=== PATIENT | female | born 1940 | race Caucasian/White ===

== ENCOUNTER 2019-03-23 11:34 | Inpatient (IN) ==
[2019-03-23] MEDS ORDERED: ROCEPHIN IM ONE (12:19)
[2019-03-23] MEDS ORDERED: ZOFRAN IV ONE (12:19)
[2019-03-23] MEDS ORDERED: XYLOCAINE-MPF 1% INJ ONE (12:19)
[2019-03-23] MEDS ORDERED: NS 1,000 ML IV ONE ×2 (12:19→14:02)
[2019-03-23 12:33] LABS: BILIRUBIN URINE NEGATIVE (NEGATIVE); BLOOD URINE NEGATIVE (NEGATIVE); CLARITY CLEAR (CLEAR); COLOR YELLOW; GLUCOSE URINE NEGATIVE (NEGATIVE); KETONE URINE TRACE mg/dL (NEGATIVE); LEUKOCYTES URINE TRACE (NEGATIVE); NITRITE URINE NEGATIVE (NEGATIVE); PROTEIN URINE NEGATIVE (NEGATIVE); UROBILINOGEN URINE NORMAL
[2019-03-23 12:42] LABS: URINE BACTERIA 4+ /HFP; URINE EPITHELIAL CELLS <10 /HPF (<10); URINE SOURCE CATH
[2019-03-23 12:46] LABS: BASO# 0.04 X1000 (0.0-0.2); BASO% 0.2 % (0.0-0.8); EOS# 0.01 X1000 (0.0-0.7); HEMATOCRIT 40.4 % (37.0-47.0); HEMOGLOBIN 14.2 g/dL (12.0-16.0); IMM GRAN# 0.11 X1000 (0.0-0.04); IMM GRAN% 0.5 % (0.0-0.5); LYMPH# 1.71 X1000 (1.2-3.4); LYMPH% 7.3 % (20.5-51.1); MCH 28.5 PG (27-31); MCHC 35.1 g/dL (33-37); MCV 81.1 FL (81-99); MONO# 1.45 X1000 (0.11-0.59); MONO% 6.2 % (1.7-9.3); MPV 10.7 FL (7.4-10.4); NEUT# 20.03 X1000 (1.4-6.5); NEUT% 85.8 % (42.2-75.2); PLT 418 X1000 (130-400); RBC 4.98 XMIL (4.2-5.4); RDW 12.1 % (11.5-14.5); WBC 23.35 X1000 (4.8-10.8)
[2019-03-23 13:01] LABS: INFLUENZA A NEGATIVE (NEGATIVE); INFLUENZA B NEGATIVE (NEGATIVE)
[2019-03-23 13:05] LABS: ALBUMIN 4.6 g/dL (3.5-5.0); CALCIUM 9.5 mg/dL (8.8-10.2); POTASSIUM 3.9 mmol/L (3.5-5.1); TOTAL BILIRUBIN 0.9 mg/dL (0.20-1.00)
[2019-03-23 13:14] LABS: INR 1.02; PROTIME 13.9 Seconds (11.0-16.0)
[2019-03-23 13:15] LABS: PTT 28.3 Seconds (22.3-41.8)
--- NOTE | 2019-03-23 13:18 | Diag Imaging Result Doc PS360 ---
EXAM: CHEST-PORTABLE - 03/23/2019 HISTORY: COUGH,SPUTUM TECHNIQUE: Portable chest COMPARISON: 04/17/2017 FINDINGS: Heart size is normal. There is mild prominence of interstitial markings. There is no dense consolidation, pleural effusion, or pneumothorax identified. IMPRESSION: Mild prominence of interstitial markings. No discrete focal pneumonia. Electronically signed by Vitaly Emerson 03/23/2019 1:15 PM
[2019-03-23] MEDS ORDERED: ROCEPHIN 1 GM in NS 50 ML IV ONE (13:23)
--- NOTE | 2019-03-23 13:50 | EKG Report ---
Test Performed on : 03/23/2019 1:41:46 PM Test Reason : SOB,COUGH Blood Pressure : / mmHG Vent. Rate : 074 BPM Atrial Rate : 074 BPM P-R Int : 152 ms QRS Dur : 086 ms QT Int : 444 ms P-R-T Axes : 042 050 065 degrees QTc Int : 492 ms Normal sinus rhythm. Nonspecific T wave abnormality Abnormal ECG When compared with ECG of 17-APR-2017 17:29, Nonspecific T wave abnormality now evident in Inferior leads Nonspecific T wave abnormality now evident in Lateral leads QT has lengthened Unconfirmed Result
--- NOTE | 2019-03-23 15:00 | PROVIDER DOCUMENTATION ---
This chart was entered by Brenda Sykes Scribe, acting as scribe for Dontae Arellano MD. HPI-Syncope/Dizziness - General Chief Complaint: Syncope Stated Complaint: DR SANTIAGO REF-DEHYDRATED? Time Seen by Provider: 03/23/19 12:08 Source: patient, family () Allergies/Adverse Reactions: Patient Allergies Allergy/AdvReac Type Severity Reaction Status Date / Time No Known Allergies Allergy Verified 03/23/19 11:48 Home Medications: Home Medication List Medication Instructions Recorded Confirmed Last Taken Type Nadolol 80 mg PO QHS 04/17/17 04/17/17 04/16/17 History - History of Present Illness-Syncope/Dizzy Nature of Presenting Problem: 78 yowf presents to the ed with her at bedside. pt went to see dr santiago this am her pcp and was told to come to ed for dehydration and syncope. pt sts for 1 week she has been dizzy with DR[employer] WALL [employer], decreased appetite, productive cough(green sputum), ear pain and nausea. pt sts this morning he heard her fall in the kitchen and he went to check on her she had a syncopal episode and then c/o lumbar pain post syncope. pt sts she has had a URI for 1 week and that was started the dizziness and other sx of decreased appetite and fatigue Prior Episodes: reports: single episode today Onset/Duration: reports: this morning Timing: reports: improving, intermittent Position/Activity at time of episode: reports: standing Symptoms prior to episode: reports: lightheaded, nausea/vomiting. denies: racing heart, confusion Duration of preceding symptoms? (mins): 1 (1 week) Context: reports: lost consciousness. denies: seizure activity observed Loss of Consciousness: brief (seconds) Current Symptoms: reports: nausea, lightheaded (with copy center specialist), dizzy. denies: fever, chills, chest pain, short of breath, vomiting, blurred vision Recently Seen Here or By Another Healthcare Provider: Yes (dr santiago pcp this am) - Dizziness Severity in ED: reports: mild Dizziness Related Current/Associated Symptoms: reports: nausea/vomiting, dizzy, earache. denies: headache, blurred vision, sense of confusion Any recent trauma/injury?: reports: none Modifying Factors: worse with: changing position Patient usually:: reports: walks without assistance Review of Systems - Adult - REVIEW OF SYSTEMS - ADULT ROS:: ROS per family () Constitutional: reports: see HPI, fatique. denies: chills, fever Eyes: denies: blurred vision, double vision Ears, Nose, Mouth & Throat: reports: see HPI, ear pain, sinus problem, throat pain Cardiovascular: denies: chest pain, edema, palpitations Respiratory: reports: see HPI, cough Gastrointestinal: reports: see HPI, nausea. denies: diarrhea, vomiting Genitourinary: reports: see HPI, incontinence (chronic) Musculoskeletal: reports: see HPI, back pain (lumbar) Integumentary: reports: no symptoms reported Neurological: reports: see HPI, dizziness/vertigo, syncope. denies: headache/migraines, seizure, slurred speech, tremors Psychiatric: reports: no symptoms reported Endocrine: reports: no symptoms reported Hematologic/Lymphatic: reports: no symptoms reported Allergic/Immunologic: reports: no symptoms reported All Other Systems: Reviewed and Negative Past History - Adult - PAST MEDICAL HISTORY-ADULT Review of Records: reports: Old Records Reviewed, Nursing Assessment Review, Medications Reviewed, Social history reviewed & non-contributory. Major Childhood Illnesses: reports: denies history Cardiovascular: reports: HTN, hyperlipidemia Respiratory: reports: denies history Gastrointestinal: reports: denies history Obstetrical/Gynecological: reports: denies history Genitourinary: reports: denies history Musculoskeletal: reports: denies history Hand Dominance: Right Handed Neurological: reports: denies history Psychiatric: reports: denies history Endocrine/Immune: reports: denies history Other Conditions: reports: denies history - PRIOR SURGERIES/PROCEDURES Surgical/Procedure History: reports: colonoscopy, other (cyst removed from buttocks area) - IMMUNIZATION STATUS Childhood Immunizations: See Nurse Assessment Flu Vaccine: See Nurse Assessment - FAMILY HISTORY Family History: reviewed, not pertinent - SOCIAL HISTORY Smoking: denies Substance Use: denies Living Situation: family Physical Exam-General - PHYSICAL EXAM-ADULT Initial Vital Signs Reviewed: Yes - CONSTITUTIONAL General Appearance: appears well, alert, no apparent distress, thin - EYES Eyes: PERRL/EOMI, pale conjunctivae - HEAD, EARS, NOSE, MOUTH & THROAT HENMT: pharyngeal erythema, TM abnormal, other (no teeth on bottom/post nasal drainage). negative: moist mucous membranes (dry oral) - NECK Neck: full range of motion, normal inspection - RESPIRATORY Respiratory: chest non-tender, lungs clear, normal breath sounds - CARDIOVASCULAR Cardiovascular: normal peripheral pulses, regular rate, rhythm - CHEST (BREASTS) Chest/Breast: deferred - GASTROINTESTINAL (ABDOMEN) Abdominal Exam: normal bowel sounds, non tender, soft - GENITOURINARY Female Genitalia/Pelvic Exam: deferred Rectal Exam: deferred Hemoccult Exam: deferred - MUSCULOSKELETAL Back Exam: normal inspection, no CVA tenderness, no vertebral tenderness, other (c/o lumbar pain with movement but no painful with palpation on exam) Extremity: normal range of motion, non-tender, normal capillary refill, pelvis stable - SKIN Integumentary: normal color, normal turgor, warm/dry - NEUROLOGIC Neurologic: grossly normal, no motor/sensory deficits - PSYCHIATRIC Psych/Mental Status: normal mood/affect, normal thought content, normal thought process, oriented x 3 Progress - PLAN OF CARE/RESULTS Progress/Plan/Lab Results: Vital Signs - 8 hr 03/23/19 11:43 03/23/19 13:30 03/23/19 14:15 Temperature 98.0 F 98.8 F Pulse Rate 64 73 69 Respiratory Rate 16 18 16 Blood Pressure 114/64 141/54 139/66 O2 Sat by Pulse Oximetry 97 100 96 Laboratory Results - last 24 hr 03/23/19 03/23/19 03/23/19 12:15 12:15 12:30 WBC RBC Hgb Hct MCV MCH MCHC RDW Std Deviation Plt Count MPV Immature Gran % (Auto) Neut % (Auto) Lymph % (Auto) [place] % (Auto) Eos % (Auto) Baso % (Auto) Immature Gran # (Auto) Neut # (Auto) Lymph # (Auto) [place] # (Auto) Eos # (Auto) Baso # (Auto) PT INR PTT (Actin FS) Sodium Potassium Chloride Carbon Dioxide Anion Gap BUN Creatinine Estimated GFR/1.73 m2 BUN/Creatinine Ratio Glucose Calculated Osmolality Calcium Magnesium 3.4 H Total Bilirubin AST ALT Alkaline Phosphatase Troponin T Total Protein Albumin Globulin Albumin/Globulin Ratio Plasma Lactate Urine Source CATH Urine Color YELLOW Urine Clarity CLEAR Urine pH 5.0 Ur Specific [place] 1.020 Urine Protein NEGATIVE Urine Ketones TRACE Urine Blood NEGATIVE Urine Nitrite NEGATIVE Urine Bilirubin NEGATIVE Urine Urobilinogen NORMAL Urine Microscopic RBC Not Reportable Urine WBC TRACE A Urine Microscopic WBC 5-10 Ur Epithelial Cells <10 Urine Bacteria 4+ Urine Glucose NEGATIVE Acetone Level NEGATIVE Influenza A (Rapid) Influenza B (Rapid) 03/23/19 03/23/19 03/23/19 12:30 12:30 12:30 WBC 23.35 H RBC 4.98 Hgb 14.2 Hct 40.4 MCV 81.1 MCH 28.5 MCHC 35.1 RDW Std Deviation 12.1 Plt Count 418 H MPV 10.7 H Immature Gran % (Auto) 0.5 Neut % (Auto) 85.8 H Lymph % (Auto) 7.3 L [place] % (Auto) 6.2 Eos % (Auto) 0.0 Baso % (Auto) 0.2 Immature Gran # (Auto) 0.11 H Neut # (Auto) 20.03 H Lymph # (Auto) 1.71 [place] # (Auto) 1.45 H Eos # (Auto) 0.01 Baso # (Auto) 0.04 PT INR PTT (Actin FS) Sodium 125 L Potassium 3.9 Chloride 75 L Carbon Dioxide 29 Anion Gap 21 BUN 73 H Creatinine 2.0 H Estimated GFR/1.73 m2 24 BUN/Creatinine Ratio 37 Glucose 185 H Calculated Osmolality 278 Calcium 9.5 Magnesium Total Bilirubin 0.90 AST 21 ALT 13 Alkaline Phosphatase 138 H Troponin T Total Protein 8.0 Albumin 4.6 Globulin 3.0 Albumin/Globulin Ratio 1.0 Plasma Lactate 2.0 Urine Source Urine Color Urine Clarity Urine pH Ur Specific [place] Urine Protein Urine Ketones Urine Blood Urine Nitrite Urine Bilirubin Urine Urobilinogen Urine Microscopic RBC Urine WBC Urine Microscopic WBC Ur Epithelial Cells Urine Bacteria Urine Glucose Acetone Level Influenza A (Rapid) Influenza B (Rapid) 03/23/19 03/23/19 03/23/19 12:30 12:30 12:30 WBC RBC Hgb Hct MCV MCH MCHC RDW Std Deviation Plt Count MPV Immature Gran % (Auto) Neut % (Auto) Lymph % (Auto) [place] % (Auto) Eos % (Auto) Baso % (Auto) Immature Gran # (Auto) Neut # (Auto) Lymph # (Auto) [place] # (Auto) Eos # (Auto) Baso # (Auto) PT 13.9 INR 1.02 PTT (Actin FS) 28.3 Sodium Potassium Chloride Carbon Dioxide Anion Gap BUN Creatinine Estimated GFR/1.73 m2 BUN/Creatinine Ratio Glucose Calculated Osmolality Calcium Magnesium Total Bilirubin AST ALT Alkaline Phosphatase Troponin T < 0.010 Total Protein Albumin Globulin Albumin/Globulin Ratio Plasma Lactate Urine Source Urine Color Urine Clarity Urine pH Ur Specific [place] Urine Protein Urine Ketones Urine Blood Urine Nitrite Urine Bilirubin Urine Urobilinogen Urine Microscopic RBC Urine WBC Urine Microscopic WBC Ur Epithelial Cells Urine Bacteria Urine Glucose Acetone Level Influenza A (Rapid) NEGATIVE Influenza B (Rapid) NEGATIVE Orders Category Date Time Status Cardiac Monitoring DIRECTED Care 03/23/19 12:17 Completed Saline Loc NOW Care 03/23/19 11:54 Active Saline Loc NOW Care 03/23/19 12:17 Completed CHEST-PORTABLE [RAD] Stat Exams 03/23/19 12:19 Completed ACETONE SERUM [CHEM] Stat Lab 03/23/19 12:30 Completed BLOOD CULTURE [BLDCUL] Stat Lab 03/23/19 12:53 Results CBC WITH ELECTRONIC DIFF [HEME] Stat Lab 03/23/19 12:30 Completed COMPREHENSIVE METABOLIC PANEL [CHEM] Stat Lab 03/23/19 12:[address] Stat Lab 03/23/19 12:30 Completed LACTATE, PLASMA [CHEM] Stat Lab 03/23/19 12:30 Completed MAGNESIUM [CHEM] Stat Lab 03/23/19 12:15 Completed PROTIME WITH INR [COAG] Stat Lab 03/23/19 12:30 Completed PTT [COAG] Stat Lab 03/23/19 12:30 Completed TROPONIN T Stat Lab 03/23/19 12:[address] W/POSS RFLX CULT [URINALYSIS] Stat Lab 03/23/19 12:15 Completed URINE CULTURE [RM] Routine Lab 03/23/19 12:42 Received 0.9% Sodium Chloride Inj [Ns] 1,000 ml Med 03/23/19 14:02 Active IV 150 mls/hr 0.9% Sodium Chloride Inj [Ns] 1,000 ml Med 03/23/19 12:19 Discontinued IV 999 mls/hr CefTRIAXONE [Rocephin] Med 03/23/19 12:19 Discontinued 1 gm IM NOW ONE CefTRIAXONE [Rocephin] 1 gm Med 03/23/19 13:23 Discontinued 0.9% Sodium Chloride Inj [Ns] 50 ml IV NOW Lidocaine 1% Pf [Xylocaine-Mpf 1%] Med 03/23/19 12:19 Discontinued 5 ml INJ NOW ONE Ondansetron [Zofran] Med 03/23/19 12:19 Discontinued 4 mg IV NOW ONE Generalized Adult Illness >60 Stat Oth 03/23/19 11:53 Ordered EKG [EKG] Stat Ther 03/23/19 12:17 Draft Result Diagrams: 03/23/19 12:30 03/23/19 12:30 - REASSESSMENT Reassessment #1 Time Reassessed: 13:53 (pt is resting in bed) Status: improving (HR and BP normalized after 1 liter NS) - EKG 1 Time of EKG reading by physician:: 13:41 EKG Read and Signed by:: Dontae Arellano EKG Interpretation (*Must complete 3 of following elements*): Abnormal Rate: 74 Rhythm: nsr [place]: normal QRS: normal HI Interval: normal ST Wave: normal Comments: nonspecific T wave abnormlaity - XRAY 1 XRAY: Bilateral XRAY Study: Chest Impression: See EMR Report (EXAM: CHEST-PORTABLE - 03/23/2019 HISTORY: COUGH,SPUTUM TECHNIQUE: Portable chest COMPARISON: 04/17/2017 FINDINGS: Heart size is normal. There is mild prominence of interstitial markings. There is no dense consolidation, pleural effusion, or pneumothorax identified. IMPRESSION: Mild prominence of interstitial markings. No discrete focal pneumonia. Electronically signed by Vitaly Emerson 03/23/2019 1:15 PM 03/23/19 1315 Interpreting Physician: Vitaly Emerson MD Dictated Date/Time: 03/23/19 1314 cc: Dontae Arellano MD; Edis Santiago MD) - CONSULTS/PCP/HOSPITALIST Notification #1 *Consult/PCP/Hospitalist*: hospitalist dr ramirez Time Discussed: 14:46 Consult Disposition: Admit Departure - Departure Date of Disposition Decision: 03/23/19 Time of Disposition Decision: 14:57 DIAGNOSIS: Syncope and collapse, Dehydration, Leukocytosis, unspecified, Bronchitis, UTI (urinary tract infection), Hyponatremia Disposition: ADMITTED INPATIENT 09 Certified Medical Emergency: Emergent Condition: Fair Referrals and Follow-Ups: Edis Santiago MD [Primary Care Provider] - - Critical Care Note This patient required my direct & personal management of CC.: No Attestation - Physician/ JOEL Attestation Patient care was provided by Advanced Practice Provider:: No The physician spent face to face time with patient:: Yes Advanced Practice Provider documentation review:: Supervising physician onsite and consulted in the evaluation and care of this patient. The physician did have a face to face encounter with the patient. This chart was documented by the indicated scribe, (Brenda Sykes Scribe) and accurately reflects the services I performed and decisions made by me, Dontae Arellano MD, as attested by the provider's signature.
[2019-03-23] MEDS ORDERED: TYLENOL PO PRN (16:35)
[2019-03-23] MEDS ORDERED: ZOFRAN IV PRN (16:35)
--- NOTE | 2019-03-23 17:49 | HISTORY AND PHYSICAL ---
ADDENDUM REPORT I saw the patient [id number] and agree with the assessment and plan of nurse practitioner Sada Cartwright. This is a 78-year-old female who has leukocytosis and also has urinary tract infection with acute kidney injury. She also has hyponatremia with sodium levels of 125. We are going to admit her to the med-surg floor and initiate her on IV fluids along with giving her broad-spectrum antibiotics to address urinary tract infection. We will monitor her electrolytes and follow hospital course. cc: Medina Barrett MD
--- NOTE | 2019-03-23 18:39 | HISTORY AND PHYSICAL ---
PRIMARY CARE MEDICAL DOCTOR: Dr. Edis Vieira. CHIEF COMPLAINT: Dehydration. HISTORY OF PRESENT ILLNESS: Mrs. Chahal is a 78-year-old female who presents to the ER today after going to see her payroll administrator, Dr. Vieira. The patient states she had a syncopal episode at home today. The patient states she has not been able to a eat or drink anything for the past week. She states she has also been having some dizziness and severe dry mouth. The patient states that she has chronic diarrhea from some kind of rectal growth that is protruding from her rectum area. The patient states she has had this growth removed a couple of times at [facility]. However, it has grown back and she is unable to have a full bowel movement. All she has is diarrhea and she is incontinent with this diarrhea. The patient does have a past medical history of hypertension and chronic diarrhea. The patient denies any chest pain. Denies any nausea or vomiting. Does state she has had some dry heaves. Denies any blood in her emesis. Denies any dysuria, frequency, urgency, pain, or hematuria. Denies any blood in her stools. The patient states she has just been severely weak. Laboratory findings show a white blood cell count of 23.35, sodium of 125, chloride 75, BUN 73, creatinine 2.0, glucose of 185, magnesium of 3.4. Urinalysis shows 4+ bacteria, positive white blood cell count. Chest x-ray is negative. PAST MEDICAL HISTORY: Chronic diarrhea, nasal polyps, hypertension. PAST SURGICAL HISTORY: Removal of a growth from her rectal area at the colon x2 at [facility]. FAMILY HISTORY: Significant for congestive heart failure. SOCIAL HISTORY: The patient lives in [place] with her spouse. She denies any alcohol, smoking, or illicit drug abuse. ALLERGIES: No known drug allergies. MEDICATIONS: Home medication reconciliation has not been performed. The patient states she takes one medication for her blood pressure, nadolol. LABORATORIES AND DIAGNOSTICS: White blood cell count 23.35, hemoglobin 14.2, hematocrit 40.0, platelet count 418,000. PT is 13.9, INR is 1.02, PTT is 28.3. Sodium is 125, potassium is 3.9, chloride 75, carbon dioxide 29, anion gap 21, BUN is 73, creatinine is 2, estimated GFR is 24, glucose is 185, calcium is 9.5, magnesium is 3.4, total bilirubin is 0.9, AST is 21, ALT is 13, alkaline phosphatase is 138. Troponin is less than 0.01. Plasma lactate is 2. Acetone level is negative. Influenza swabs are negative. Chest x-ray shows mild prominence of the interstitial markings, but no pneumonia. REVIEW OF SYSTEMS: A 10-point review of systems has been obtained. All are negative except what is stated above in the HPI. PHYSICAL EXAMINATION: VITAL SIGNS: Temperature 98.8 degrees, pulse rate 73, respiratory rate 18, blood pressure is 139/66, and O2 saturation is 96% on room air. Weight is 110 pounds, height is 5 feet 5 inches. GENERAL: This is a 78-year-old female. She is lying in the ER stretcher. She is very thin and frail in appearance. She is in no acute distress at present time. HEENT: Atraumatic, normocephalic. Pupils equal, round, and reactive to light. Mucous membranes are dry. NECK: Supple. No lymphadenopathy. Trachea is midline. No JVD. CARDIOVASCULAR: Regular rate and rhythm. No murmurs, gallops, or rubs appreciated. RESPIRATORY: Lung sounds are clear. Equal chest excursion. Respirations are nonlabored with no accessory muscle usage. GASTROINTESTINAL: Abdomen is soft, nontender, and nondistended. Bowel sounds are present x4. NEUROLOGIC: Cranial nerves II through XII are intact. The patient is awake, alert, oriented, and able to follow all commands appropriately. MUSCULOSKELETAL: Full distal strength noted. No abnormalities. No deformities. EXTREMITIES: No clubbing, no cyanosis, no edema. DP and PT pulses are present and palpable. SKIN: Warm, dry, and intact. There is a large red growth hanging from the rectal anus area. It is about the size of a golf ball. There is another small one right below it that is about the size of a quarter. There is no diaphoresis or bruises noted. ASSESSMENT AND PLAN: 1. Dehydration. We are going to admit this patient to the medical floor. We will place her on IV fluid hydration and normal saline at 150 mL an hour. We are going to start her on a healthy heart diet. Repeat labs and chest x-ray in the morning. Place her on quality assurance monitor chassis. 2. Leukocytosis. Patient does have elevated WBC count and a UTI we have started her on IV fluid hydration and IV antibiotics. We will recheck her labs in the morning. Blood cultures and a urine culture was obtained in the ER. 3. Acute kidney injury. This is likely due to her dehydration. We will place her on IV fluid hydration. We will repeat labs in the morning. I am not sure what her normal BUN and creatinine are or her GFR. 4. Malnutrition. The patient is severely malnourished and dehydrated. We are going to encourage her to drink fluids and encourage her to eat. 5. Diarrhea. The patient has been having this diarrhea for some time. This is due to some kind of rectal growth. This has been removed a few times at [facility]. We are going to have Surgery take a look at this and see if this growth can be removed. The patient states she is unable to have a full bowel movement. She just has constant diarrhea, and is incontinent with her diarrhea. 5. Hypertension. The patient is on some kind of home hypertension medicine. Her home medication reconciliation has not been performed at this time. Her blood pressure is stable at this time. We will continue to observe her blood pressure and place her on quality assurance monitor chassis. 6. Deep venous thrombosis prophylaxis. I placed her on SCDs. 7. Gastrointestinal prophylaxis. I placed her on Prilosec daily. We will admit this patient to a medical floor. We will place her on IV fluid hydration. She does have some notable bacteria in her urine, so we are going to put her on some Rocephin IV daily. We are going to await the blood cultures pending and urine culture. She also has some acute renal insufficiency going on, so we are going to repeat her labs in the morning after we have hydrated her, and we are going to encourage her to eat and drink as the patient is malnourished and dehydrated. We will consult Surgery for this rectal growth to see if it can be removed as it is causing her some discomfort. All other further treatment and recommendations pending hospital course and lab data. Dictated by CARA Thomas for Medina Barrett MD cc: MD Edis Headley MD [facility]
[2019-03-23 20:05] LABS: ALBUMIN 3.6 g/dL (3.5-5.0); CALCIUM 8.2 mg/dL (8.8-10.2); CREATININE 1.6 mg/dL (0.5-0.9); MAGNESIUM 2.9 mg/dL (1.5-2.7); POTASSIUM 3.6 mmol/L (3.5-5.1); TOTAL BILIRUBIN 0.5 mg/dL (0.20-1.00); TOTAL PROTEIN 6.9 g/dL (6.3-8.3)
[2019-03-23] MEDS: ROCEPHIN 1 GM in NS 50 ML IV SCH (20:39)
[2019-03-23] MEDS: NS 1,000 ML IV SCH (20:46)
[2019-03-24] MEDS: NS 1,000 ML IV SCH ×3 (03:27→20:16)
[2019-03-24 06:54] LABS: BASO# 0.03 X1000 (0.0-0.2); BASO% 0.2 % (0.0-0.8); EOS# 0.08 X1000 (0.0-0.7); EOS% 0.6 % (0.0-10.0); HEMATOCRIT 33.3 % (37.0-47.0); HEMOGLOBIN 10.8 g/dL (12.0-16.0); IMM GRAN# 0.03 X1000 (0.0-0.04); IMM GRAN% 0.2 % (0.0-0.5); LYMPH# 1.33 X1000 (1.2-3.4); LYMPH% 10.5 % (20.5-51.1); MCH 27.4 PG (27-31); MCHC 32.4 g/dL (33-37); MCV 84.5 FL (81-99); MONO# 1.28 X1000 (0.11-0.59); MONO% 10.1 % (1.7-9.3); NEUT# 9.92 X1000 (1.4-6.5); NEUT% 78.4 % (42.2-75.2); PLT 293 X1000 (130-400); RBC 3.94 XMIL (4.2-5.4); RDW 12.1 % (11.5-14.5); WBC 12.67 X1000 (4.8-10.8)
--- NOTE | 2019-03-24 07:44 | Diag Imaging Result Doc PS360 ---
EXAM: CHEST-PORTABLE INDICATION: cough TECHNIQUE: One view COMPARISON: 03/23/2019 FINDINGS: Mild increased interstitial markings bilaterally are approximately stable given slight differences in exposure. This probably represents chronic interstitial thickening. No new consolidation is identified. Cardiac silhouette is stable. IMPRESSION: Stable chest. Electronically signed by Ross Canales 03/24/2019 7:41 AM
[2019-03-24] MEDS: PRILOSEC PO SCH (09:05)
--- NOTE | 2019-03-24 11:36 | PROGRESS NOTE ---
DATE: 03/24/2019 SUBJECTIVE: Patient denies having any acute complaints this morning and feels better. OBJECTIVE: Vital Signs: Temperature 98 degrees, pulse 69 per minute, respiratory rate 18 per minute, blood pressure 121/46, pulse oximetry 96% on room air. General: Patient is alert and oriented x3. She does not appear to be in any acute distress. Cardiovascular System: First and second heart sounds are audible without murmurs or gallops. Respiratory System: Bilateral lung air entry is good without any rales or rhonchi. Gastrointestinal System: Abdomen is benign. DIAGNOSTIC DATA: CBC shows WBC count of 12.67, hemoglobin 10.8, hematocrit 33.3, and platelet count 2930. In comparison her WBC count was 23.35 yesterday and H and H were 14.2 and 40.4 yesterday. I believe this is hemodilution causing her to have some drop in hemoglobin and hematocrit, and leukocytosis has also somewhat improved because of hemodilution, along with infection, treatment with antibiotics. Chemistry showed sodium level of 132; that is an improvement as compared to yesterday when her sodium level was 125. BUN and creatinine are 61 and 1.6 respectively, which are better as compared to BUN of 73 and creatinine 2.0 yesterday. Rest of the comprehensive metabolic panel is nondiagnostic. Magnesium levels were elevated at 3.4 yesterday and they are now 2.9 today. IMPRESSION: 1. Urinary tract infection. 2. Acute kidney injury. 3. Leukocytosis. 4. Hyponatremia that has improved. PLAN: The patient will continue to receive IV fluids along with ceftriaxone intravenously. We will provide her supportive care and monitor her electrolytes. Further recommendations will be given as per hospital course. cc: Medina Barrett MD
--- NOTE | 2019-03-24 14:04 | GENERAL SURGERY CONSULTATION ---
DATE: 03/24/2019 REQUESTING PHYSICIAN: Dr. Barrett. REASON FOR CONSULTATION: Anal mass. HISTORY OF PRESENT ILLNESS: A 78-year-old female with a history of anal mass that has been removed several times at [facility], presenting now with dehydration. She was initially admitted by Dr. Barrett and has been resuscitated, but is found that she has had issues with this rectal mass coming back. She does not recall what the previous resections have shown, but she did not think it was cancer. I have been asked to weigh an opinion. She says she is feeling a little bit better. PAST MEDICAL HISTORY: Chronic diarrhea, nasal polyps, hypertension. PAST SURGICAL HISTORY: Includes previous removal of tumor from her rectum x2 at [facility]. FAMILY HISTORY: Positive for congestive heart failure. SOCIAL HISTORY: Lives in [place]. Denies alcohol, tobacco, or illicit drugs. ALLERGIES: None. HOME MEDICATIONS: Reviewed. REVIEW OF SYSTEMS: A full 14 systems reviewed, are negative except for those specified in the HPI. PHYSICAL EXAMINATION: Vital Signs: Patient is currently afebrile. Her vital signs are stable. General: No acute distress. HEENT: Normocephalic, atraumatic. Pupils equal, round, reactive to light. Mucous membranes moist. Oropharynx benign. Neck: Supple. Trachea midline. Cardiovascular: Regular rate and rhythm. Lungs: Grossly clear. Abdomen: Soft, nontender, nondistended. Rectal: There is a mass noted, looks almost like a condyloma. Extremities: Moves all extremities. Neurologic: Grossly intact. Skin: No signs of jaundice. Vascular: All extremities perfused. LABORATORY: Reviewed. ASSESSMENT AND PLAN: A 78-year-old female with rectal mass. Rectal mass. 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 Given the history of it coming back several times, that could potentially be the causative reason. She probably needs a rectal exam under anesthesia and a transanal excision. We could do this as an outpatient. We will keep her in the hospital while she is being resuscitated for dehydration and plan on intervention in the near future. cc: Hardeep Adams MD
[2019-03-24] MEDS: ROCEPHIN 1 GM in NS 50 ML IV SCH (20:07)
[2019-03-25 06:50] LABS: BASO# 0.03 X1000 (0.0-0.2); BASO% 0.3 % (0.0-0.8); EOS# 0.31 X1000 (0.0-0.7); EOS% 3.1 % (0.0-10.0); HEMOGLOBIN 10.2 g/dL (12.0-16.0); IMM GRAN# 0.03 X1000 (0.0-0.04); IMM GRAN% 0.3 % (0.0-0.5); LYMPH# 2.28 X1000 (1.2-3.4); LYMPH% 22.5 % (20.5-51.1); MCH 27.5 PG (27-31); MCHC 31.9 g/dL (33-37); MCV 86.3 FL (81-99); MONO# 1.25 X1000 (0.11-0.59); MONO% 12.4 % (1.7-9.3); MPV 10.6 FL (7.4-10.4); NEUT# 6.22 X1000 (1.4-6.5); NEUT% 61.4 % (42.2-75.2); PLT 283 X1000 (130-400); RBC 3.71 XMIL (4.2-5.4); RDW 12.3 % (11.5-14.5); WBC 10.12 X1000 (4.8-10.8)
--- NOTE | 2019-03-25 07:16 | GENERAL SURGERY PROGRESS NOTE ---
DATE: 03/25/2019 SUBJECTIVE: Patient seems to be doing okay. She does have a persistent cough, but otherwise she has been doing okay. OBJECTIVE: Vital Signs: Patient is currently afebrile. Her vital signs stable. General: No acute distress. HEENT: Normocephalic, atraumatic. Pupils equal, round, reactive to light. Mucous membranes moist. Oropharynx benign. Neck: Supple. Trachea midline. Cardiovascular: Regular rate and rhythm. Lungs: Grossly clear. Abdomen: Soft, nontender, nondistended. Rectal: Deferred at this time. Extremities: Moves all extremities. Neurologic: Grossly intact. Skin: No signs of jaundice. Vascular: All extremities perfused. LABORATORY: None this morning as of yet. ASSESSMENT AND PLAN: A 78-year-old female with rectal mass. Rectal mass. At this time, we will probably need an examination under anesthesia in the near future with a transanal excision, but we will see how she does and how her resuscitation continues, so no immediate plans today or tomorrow. cc: Hardeep Adams MD
[2019-03-25 07:18] LABS: CALCIUM 8.4 mg/dL (8.8-10.2); CREATININE 0.9 mg/dL (0.5-0.9); MAGNESIUM 2.3 mg/dL (1.5-2.7); POTASSIUM 3.4 mmol/L (3.5-5.1)
[2019-03-25] MEDS: PRILOSEC PO SCH (08:50)
[2019-03-25] MEDS: NS 1,000 ML IV SCH (08:51)
[2019-03-25 15:53] VITALS: BP 130/55
--- NOTE | 2019-03-25 18:19 | DISCHARGE SUMMARY ---
ADMISSION DATE: 03/23/2019 DISCHARGE DATE: 03/25/2019 ADMISSION DIAGNOSES: 1. Dehydration. 2. Leukocytosis. 3. Acute kidney injury. 4. Malnutrition. 5. Diarrhea. 6. Hypertension. DISCHARGE DIAGNOSES: 1. Urinary tract infection. It was pansensitive Escherichia coli, negative extended spectrum beta-lactamase. 2. Acute kidney injury. 3. Leukocytosis. 4. Hyponatremia, which improved. 5. Anal mass. CONSULTATIONS: Dr. Adams with General surgery. She was found to have an anal mass, and he evaluated the patient. 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 He thinks she probably needs a rectal exam under anesthesia and a transanal excision and could be done as an outpatient with plans for intervention in the near future. Ms. Ericka Chahal is a 78-year-old female. Presented to the emergency department at [facility] for dehydration. She admitted to having a syncopal episode at home, had not been able to eat or drink anything for the past week, had dizziness and dry mouth and chronic diarrhea, and also a rectal growth apparently had been protruding from her rectum. Apparently she has had the rectal growth removed several times at [facility], but it just keeps coming back. She has been unable to have a full bowel movement but has been having incontinent diarrhea. Denies nausea or vomiting. No blood in the stool. She had a white count of 23,000, a low sodium level of 125, mild acute kidney injury. Urinalysis had 4+ bacteria and some white blood cells. She was given IV fluid hydration, started on IV antibiotics for the UTI. Diet was started, and patient was encouraged to consume food. General Surgery was consulted and felt like the anal mass was more of a condyloma and could be removed as an outpatient under anesthesia. Vital signs stable, She will be discharged home today. DISCHARGE VITAL SIGNS: Temperature 99.2 degrees, heart rate 71, respiratory rate 14, blood pressure 130/55. O2 saturation 99% on room air. LAB DATA: White blood cells 10,000, hemoglobin 10, hematocrit 32, platelet count 283. Sodium 139, potassium 3.4, BUN 24, creatinine 0.9. Glucose 94, calcium 8.4, magnesium 2.3. MICRO: She had an E coli urinary tract infection. It was pansensitive. Negative ESBL. IMAGING: Chest x-ray on the : Mild prominence of interstitial markings. No discrete focal pneumonia. Chest x-ray on the : Stable chest. EKG on the : Normal sinus rhythm, rate 74, QTc 492. DISCHARGE MEDICATIONS: 1. Nadolol 80 mg p.o. daily. 2. Zofran 4 mg p.r.n. 3. Levaquin 750 mg p.o. daily for 7 days. DISCHARGE DISPOSITION: Home. DIET: Heart healthy. ACTIVITY: As tolerated. PHYSICIAN FOLLOWUP: Drs. Edis Vieira and Hardeep Adams. 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 DISCHARGE INSTRUCTIONS: If your condition changes, contact your physician and/or return to the emergency department. Changes include, but are not limited to, shortness of breath, increased fatigue, excessive bleeding, unexplained weight loss or gain, unmanageable pain, signs or symptoms of infection. DISCHARGE DISPOSITION: Home. Dictated by CARA De La Rosa for Cheko Lam MD Addendum: Patient seen and examined by myself. Agree with CARA note. It reflects my assessment and plan. Patient is being discharged in stable condition. Will be seen by Dr. Adams in a week. cc: CARA De La Rosa MD MTDEdwin
== END 2019-03-25 17:50 | disposition home or self-care (01) | DRG 683 ==
LOC: P.ED 11:34 → SUATTDRO 17:43 → P.MEDSURG 17:43
PROVIDERS: ATTEND Internal Medicine

== ENCOUNTER 2019-04-05 03:35 | Inpatient (IN) ==
[2019-04-05] MEDS ORDERED: ZOFRAN IV ONE (06:00)
[2019-04-05] MEDS ORDERED: NS 1,000 ML IV ONE ×2 (06:01→07:34)
[2019-04-05 06:18] LABS: BASO# 0.07 X1000 (0.0-0.2); BASO% 0.4 % (0.0-0.8); EOS% 1.1 % (0.0-10.0); HEMATOCRIT 41.1 % (37.0-47.0); HEMOGLOBIN 14.4 g/dL (12.0-16.0); IMM GRAN# 0.07 X1000 (0.0-0.04); IMM GRAN% 0.4 % (0.0-0.5); LYMPH# 2.08 X1000 (1.2-3.4); LYMPH% 11.6 % (20.5-51.1); MCH 28.2 PG (27-31); MCV 80.6 FL (81-99); MONO# 1.13 X1000 (0.11-0.59); MONO% 6.3 % (1.7-9.3); NEUT# 14.39 X1000 (1.4-6.5); NEUT% 80.2 % (42.2-75.2); PLT 527 X1000 (130-400); RDW 12.6 % (11.5-14.5); WBC 17.94 X1000 (4.8-10.8)
[2019-04-05 06:48] LABS: ALBUMIN 4.7 g/dL (3.5-5.0); CALCIUM 9.1 mg/dL (8.8-10.2); CREATININE 2.3 mg/dL (0.5-0.9); POTASSIUM 4.1 mmol/L (3.5-5.1); TOTAL BILIRUBIN 0.7 mg/dL (0.20-1.00); TOTAL PROTEIN 7.9 g/dL (6.3-8.3)
[2019-04-05] MEDS ORDERED: ROCEPHIN 1 GM in NS 50 ML IV ONE (07:34)
--- NOTE | 2019-04-05 07:40 | PROVIDER DOCUMENTATION ---
HPI-Syncope/Dizziness - General Chief Complaint: Syncope Stated Complaint: SYNCOPE Time Seen by Provider: 04/05/19 07:27 Allergies/Adverse Reactions: Patient Allergies Allergy/AdvReac Type Severity Reaction Status Date / Time levofloxacin [From Levaquin] Allergy NAUSEA/VOMI Verified 04/05/19 07:51 TING Home Medications: Home Medication List Medication Instructions Recorded Confirmed Last Taken Type Nadolol 80 mg PO DAILY 03/23/19 04/05/19 03/23/19 History - History of Present Illness-Syncope/Dizzy Nature of Presenting Problem: patient stated that she was sitting in the commode and passed out for unknown period of time. unknown loss of consciousness. patient had history of syncope in the past, she stated that she was dehydrated and had history of uti, no fever was reported. patient complained dry mouth and difficulty swallowing. Prior Episodes: reports: single episode today Onset/Duration: reports: abrupt Timing: reports: improving Position/Activity at time of episode: reports: sitting Symptoms prior to episode: reports: none. denies: headache, visual disturbance, nausea/vomiting, racing heart, confusion, rapid heart beat Context: reports: lost consciousness, collapsed, felt faint Current Symptoms: denies: fever, chills, abdominal pain, nausea, headache Similar symptoms previously: reports: workup for same problem Recently Seen Here or By Another Healthcare Provider: No - Dizziness Severity in ED: reports: moderate Dizziness Related Current/Associated Symptoms: reports: weakness, dizzy, syncope . denies: nausea/vomiting, headache, headache Any recent trauma/injury?: reports: none Modifying Factors: improves with: changing position, movement of head, standing position Review of Systems - Adult - REVIEW OF SYSTEMS - ADULT Constitutional: reports: jayla. denies: fever Eyes: reports: no symptoms reported Ears, Nose, Mouth & Throat: reports: no symptoms reported Cardiovascular: reports: no symptoms reported Respiratory: reports: no symptoms reported Gastrointestinal: reports: no symptoms reported, other (difficulty swallowing) Genitourinary: reports: no symptoms reported Musculoskeletal: reports: no symptoms reported Integumentary: reports: no symptoms reported Neurological: reports: dizziness/vertigo, syncope Psychiatric: reports: no symptoms reported Endocrine: reports: no symptoms reported Hematologic/Lymphatic: reports: no symptoms reported Allergic/Immunologic: reports: no symptoms reported Past History - Adult - PAST MEDICAL HISTORY-ADULT Review of Records: reports: Nursing Assessment Review Major Childhood Illnesses: reports: denies history Cardiovascular: reports: HTN, hyperlipidemia Respiratory: reports: denies history Gastrointestinal: reports: denies history Obstetrical/Gynecological: reports: denies history Genitourinary: reports: denies history Musculoskeletal: reports: denies history Neurological: reports: denies history Endocrine/Immune: reports: denies history Other Conditions: reports: denies history Physical Exam-General - PHYSICAL EXAM-ADULT Initial Vital Signs Reviewed: Yes - CONSTITUTIONAL General Appearance: alert, no apparent distress - EYES Eyes: PERRL/EOMI - HEAD, EARS, NOSE, MOUTH & THROAT HENMT: normocephalic/atraumatic, normal ENT inspection - NECK Neck: non-tender, supple - RESPIRATORY Respiratory: lungs clear, normal breath sounds, no pleuratic chest pain, no respiratory distress, no accessory muscle use - CARDIOVASCULAR Cardiovascular: normal peripheral pulses, regular rate, rhythm, no edema, no gallop - GASTROINTESTINAL (ABDOMEN) Abdominal Exam: non tender, soft - LYMPHATIC Lymphatic: no adenopathy - MUSCULOSKELETAL Back Exam: normal inspection, no CVA tenderness, no vertebral tenderness Extremity: negative: calf tenderness, pedal edema - SKIN Integumentary: other (both feet were cold) - NEUROLOGIC 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, grossly normal, other (generalized weakness) - PSYCHIATRIC Psych/Mental Status: normal mood/affect, oriented x 3 Progress - PLAN OF CARE/RESULTS Progress/Plan/Lab Results: Laboratory Results - last 24 hr 04/05/19 04/05/19 07:10 09:45 POC Glucose 116 H Urine Source CATH Urine Color YELLOW Urine Clarity CLEAR Urine pH 5.0 Ur Specific [place] 1.020 Urine Protein TRACE A Urine Ketones TRACE Urine Blood NEGATIVE Urine Nitrite NEGATIVE Urine Bilirubin NEGATIVE Urine Urobilinogen NORMAL Urine WBC TRACE A Urine Microscopic WBC <10 Ur Epithelial Cells <10 Urine Glucose NEGATIVE Orders Category Date Time Status Admit - [facility] Routine AdmDCTranf 04/05/19 10:17 Active Activity - Up with Assistance ORDERED Care 04/05/19 10:17 Active ED: Orthostatic Vital Signs (E DIRECTED Care 04/05/19 08:34 Completed Intake and Output-Strict ORDERED Care 04/05/19 10:17 Active Saline Loc NOW Care 04/05/19 05:26 Active Vital Signs Order Q 8-HR ASSESS Care 04/05/19 10:17 Active Z-Document. for Tele Applied ORDERED Care 04/05/19 10:17 Completed US RENAL 2 (RETROPER) COMPLETE [US] Routine Exams 04/05/19 10:17 Completed BASIC METABOLIC PANEL [CHEM] Routine Lab 04/06/19 05:39 Completed BLOOD CULTURE [BLDCUL] Stat Lab 04/05/19 06:41 Results CBC WITH DIFF [HEME] Routine Lab 04/06/19 05:39 Completed CBC WITH DIFF [HEME] Stat Lab 04/05/19 05:59 Completed CK PROFILE [SP CHEM] Stat Lab 04/05/19 05:59 Completed COMPREHENSIVE METABOLIC PANEL [CHEM] Stat Lab 04/05/19 05:59 Completed LACTATE, PLASMA [CHEM] Stat Lab 04/05/19 06:43 Completed TROPONIN T Stat Lab 04/05/19 05:59 Completed UR CREAT RANDOM [URCHEM] Routine Lab 04/05/19 21:40 Completed UR PROT RANDOM [URCHEM] Routine Lab 04/05/19 21:40 Completed UR SODIUM [URCHEM] Routine Lab 04/05/19 21:[address] W/POSS RFLX CULT [URINALYSIS] Stat Lab 04/05/19 07:10 Completed 0.9% Sodium Chloride Inj [Ns] 1,000 ml Med 04/05/19 10:17 Active IV 125 mls/hr 0.9% Sodium Chloride Inj [Ns] 1,000 ml Med 04/05/19 06:01 Discontinued IV 999 mls/hr 0.9% Sodium Chloride Inj [Ns] 1,000 ml Med 04/05/19 07:34 Discontinued IV 999 mls/hr Acetaminophen [Tylenol] Med 04/05/19 10:17 Active 650 mg PO Q6H PRN PRN CefTRIAXONE [Rocephin] 1 gm Med 04/05/19 07:34 Discontinued 0.9% Sodium Chloride Inj [Ns] 50 ml IV NOW Ondansetron [Zofran] Med 04/05/19 06:00 Discontinued 4 mg IV NOW ONE Ondansetron [Zofran] Med 04/05/19 10:17 Active 4 mg IV Q4H PRN PRN Telemetry [OM.EQ] Routine Oth 04/05/19 10:17 Active EKG [EKG] Stat Ther 04/05/19 05:25 Draft Transfer/Admit Order [TRANSFER] Routine Transfer 04/05/19 09:34 Completed Result Diagrams: 04/06/19 05:39 04/06/19 05:39 Departure - Departure Date of Disposition Decision: 04/05/19 Time of Disposition Decision: 16:00 DIAGNOSIS: Electrolyte abnormality, Dehydration, Syncope Disposition: ADMITTED INPATIENT 09 Certified Medical Emergency: Emergent Condition: Good - Critical Care Note This patient required my direct & personal management of CC.: No Attestation - Physician/ JOEL Attestation Patient care was provided by Advanced Practice Provider:: No The physician spent face to face time with patient:: Yes Advanced Practice Provider documentation review:: Supervising physician onsite and consulted in the evaluation and care of this patient. The physician did have a face to face encounter with the patient.
[2019-04-05 08:09] LABS: BILIRUBIN URINE NEGATIVE (NEGATIVE); BLOOD URINE NEGATIVE (NEGATIVE); CLARITY CLEAR (CLEAR); COLOR YELLOW; GLUCOSE URINE NEGATIVE (NEGATIVE); KETONE URINE TRACE mg/dL (NEGATIVE); LEUKOCYTES URINE TRACE (NEGATIVE); NITRITE URINE NEGATIVE (NEGATIVE); PROTEIN URINE TRACE mg/dL (NEGATIVE); UROBILINOGEN URINE NORMAL
[2019-04-05 08:10] LABS: URINE EPITHELIAL CELLS <10 /HPF (<10); URINE SOURCE CATH; URINE WBC <10 /HPF (<10)
--- NOTE | 2019-04-05 08:57 | EKG Report ---
Test Performed on : 04/05/2019 06:29:00 AM Test Reason : syncope Blood Pressure : / mmHG Vent. Rate : 070 BPM Atrial Rate : 070 BPM P-R Int : 172 ms QRS Dur : 078 ms QT Int : 446 ms P-R-T Axes : 067 029 052 degrees QTc Int : 481 ms Normal sinus rhythm. Nonspecific T wave abnormality Abnormal ECG When compared with ECG of 23-MAR-2019 13:41, (Unconfirmed) No significant change was found Unconfirmed Result
[2019-04-05] MEDS ORDERED: TYLENOL PO PRN (10:17)
[2019-04-05] MEDS ORDERED: ZOFRAN IV PRN (10:17)
[2019-04-05] MEDS: NS 1,000 ML IV SCH ×2 (10:25→18:23)
--- NOTE | 2019-04-05 12:14 | Diag Imaging Result Doc PS360 ---
US RENAL 2 (RETROPER) COMPLETE - 04/05/2019 INDICATION: gema/arf TECHNIQUE: COMPARISON: None FINDINGS: There is mild to moderate right-sided hydronephrosis. There is dilation of the proximal ureter. The left kidney is normal. No renal mass. There is incidental note of shadowing gallstones in the gallbladder. No gallbladder inflammation. There is also some fatty change of the liver. The urinary bladder appears normal. No free fluid. The right kidney measures 8.6 x 4.4 x 4.5 cm. The left kidney measures 9.8 x 4.5 x 4.5 cm. IMPRESSION: 1. Moderate right hydronephrosis of uncertain etiology. 2. Stones in the gallbladder. 3. Fatty liver. Electronically signed by Aidan Yuen 04/05/2019 12:11 PM
[2019-04-05] MEDS ORDERED: PROTONIX IV SCH (17:30)
[2019-04-05] MEDS ORDERED: SODIUM CHLORIDE 0.9% INJ SCH ×2 (17:30)
[2019-04-05] MEDS ORDERED: NEXIUM IV SCH (17:30)
--- NOTE | 2019-04-05 20:21 | HISTORY AND PHYSICAL ---
CHIEF COMPLAINT: Weakness. HISTORY OF PRESENT ILLNESS: The patient came in for dehydration. According to the family, she has not really been active. She only drinks about 2 cups of water a day. Today, she was on a commode and she passed out. She states she is dehydrated. History of UTI. No fevers. She went to the bathroom at her home, and without bearing down, she had a syncopal episode. Her found her unresponsive, but she regained consciousness quickly. Further questioning revealed that she had recently had dysphagia to solids, but not liquids. Again, she drinks minimal amounts of liquid. She was just admitted about 2 weeks ago also for acute kidney injury and dehydration. She was thought to have a UTI at that time. She has a history of a rectal mass, but it has been benign and just followed normally. We will continue to follow closely. Her labs today showed a BUN and creatinine of 76 and 2.3, sodium of 124, white count of 17,000. She has had a 30-pound weight loss in the last several months because she just does not eat or drink, but she is complaining of dysphagia. PAST MEDICAL HISTORY: Hypertension alone. PAST SURGICAL HISTORY: Nasal polyps. FAMILY HISTORY: CHF. SOCIAL HISTORY: No tobacco or ethanol. ALLERGIES: No known drug allergies. MEDICATIONS: Denies. REVIEW OF SYSTEMS: Otherwise negative x10 point review of systems. PHYSICAL EXAMINATION: VITAL SIGNS: Blood pressure 120/47, heart rate 63, respiratory rate 20, temperature 98 degrees, 94% on room air. GENERAL: This is a darkly skinned lady, kind of tanned, in no acute distress. HEAD: Normocephalic, atraumatic. EYES: Pupils equal, round, reactive to light. Extraocular movements are intact. EAR/NOSE/THROAT: She had moist mucous membranes. NECK: Supple. CARDIOVASCULAR: Regular rate and rhythm. PULMONARY: Bilateral breath sounds. Clear to auscultation GASTROINTESTINAL: Soft, nontender, nondistended. Bowel sounds are positive. NEUROLOGIC: Nonfocal. MUSCULOSKELETAL: Strength 4/5 in all 4 extremities. LABORATORY DATA: White count 17, hemoglobin and hematocrit 14 and 41, platelets 527,000. Sodium 124, BUN and creatinine 76 and 2.3. Overall doing okay. PROBLEM LIST: 1. Acute kidney injury, likely due to dehydration from poor oral intake. She is really not on anything nephrotoxic. We will do an acute kidney injury workup including urine electrolytes, a renal ultrasound, continue gentle hydration, and follow. 2. Hypertension. For the time being, blood pressure is stable. I am not resuming any of her medications. 3. Leukocytosis. May be reactive from her other things going on, but we will get a chest x-ray and monitor. 4. Dysphagia. We will likely need GI evaluation when she is more stable. We will get a barium swallow to start off with, and we will start PPI and monitor. DISPOSITION: Pending her clinical status. cc: MD Edis Hoover MD
--- NOTE | 2019-04-05 20:58 | Diag Imaging Result Doc PS360 ---
CT RENAL STONE SEARCH - 04/05/2019 INDICATION: gema COMPARISON: Renal ultrasound from earlier 04/05/2019 FINDINGS: The lung bases are clear and the heart size is normal. There is mild bilateral hydronephrosis. Urinary bladder is massively distended. No radiodense renal stones. There is moderate diffuse constipation. No bowel obstruction. Normal appendix. There appears to be some wall thickening of the distal rectum. Uterus is absent. There are moderate degenerative changes of the spine. No acute or suspicious bony lesion. IMPRESSION: 1. Severe urinary bladder distention causing bilateral hydronephrosis. Anders catheter recommended. 2. Suspicious wall thickening of the lower rectum. Recommend exam or scoping. This exam was performed using automated exposure control, adjustment of mA or kV according to patient size, and/or use of iterative reconstruction technique Electronically signed by Aidan Yuen 04/05/2019 8:56 PM
[2019-04-05 23:03] LABS: UR CREAT RANDOM 84.8 mg/dL (11-20); UR PROT RANDOM 12.9 mg/dL
[2019-04-06] MEDS: NS 1,000 ML IV SCH ×3 (03:07→20:53)
[2019-04-06 06:55] LABS: BASO# 0.06 X1000 (0.0-0.2); BASO% 0.6 % (0.0-0.8); EOS# 0.27 X1000 (0.0-0.7); EOS% 2.7 % (0.0-10.0); HEMATOCRIT 32.7 % (37.0-47.0); HEMOGLOBIN 10.6 g/dL (12.0-16.0); IMM GRAN# 0.03 X1000 (0.0-0.04); IMM GRAN% 0.3 % (0.0-0.5); LYMPH# 1.81 X1000 (1.2-3.4); LYMPH% 18.3 % (20.5-51.1); MCH 27.5 PG (27-31); MCHC 32.4 g/dL (33-37); MCV 84.9 FL (81-99); MONO# 0.93 X1000 (0.11-0.59); MONO% 9.4 % (1.7-9.3); MPV 9.9 FL (7.4-10.4); NEUT# 6.79 X1000 (1.4-6.5); NEUT% 68.7 % (42.2-75.2); PLT 375 X1000 (130-400); RBC 3.85 XMIL (4.2-5.4); RDW 12.7 % (11.5-14.5); WBC 9.89 X1000 (4.8-10.8)
[2019-04-06 07:11] LABS: CREATININE 1.2 mg/dL (0.5-0.9); POTASSIUM 3.4 mmol/L (3.5-5.1)
--- NOTE | 2019-04-06 08:13 | Diag Imaging Result Doc PS360 ---
EXAM: CHEST-2 VIEWS HISTORY: hypoxia TECHNIQUE: PA and Lateral chest x-ray COMPARISON: 03/24/2019 FINDINGS: The cardiomediastinal silhouette is within normal limits. The pulmonary vasculature is not congested. There is pulmonary emphysema. There is a nodular opacity right mid to lower lung zone not definitely appreciated on prior studies. There are mildly prominent basilar interstitial markings. No effusion or pneumothorax. IMPRESSION: 1.Pulmonary emphysema. 2.New nodular density right midlung zone. 3.Mildly prominent basilar interstitial markings. Electronically signed by Dot Mackay 04/06/2019 8:10 AM
--- NOTE | 2019-04-06 11:02 | Diag Imaging Result Doc PS360 ---
EXAM: GI SERIES WITH BA SWALLOW HISTORY: dysphagia TECHNIQUE: Double contrast evaluation. Cervical esophagus evaluated with rapid sequence technique. COMPARISON: None. FINDINGS: The patient initiated swallowing without difficulty. Esophageal peristalsis was normal other than several nonperistaltic tertiary contractions. There is a smooth, distal esophageal stricture and an associated small epiphrenic diverticulum. Evaluation of the cervical esophagus reveals cervical osteophytes with posterior impression upon the cervical esophagus. No evidence for obstruction. No gastroesophageal reflux was elicited. There is a small sliding hiatal hernia. Otherwise, the stomach and duodenum are unremarkable. 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 Recommend endoscopy. 2.Anterior cervical osteophytes. 3.Multiple esophageal tertiary contractions. 4.Small sliding hiatal hernia. Electronically signed by Dot Mackay 04/06/2019 11:00 AM
[2019-04-06] MEDS ORDERED: KLOR-CON PO ONE (14:15)
[2019-04-06] MEDS ORDERED: TYLENOL PO PRN (15:30)
[2019-04-06] MEDS ORDERED: ZOFRAN IV PRN (15:30)
[2019-04-06] MEDS ORDERED: NS 1,000 ML IV SCH (16:00)
[2019-04-06] MEDS: PROTONIX IV SCH ×2 (16:54→19:22)
[2019-04-06] MEDS: SODIUM CHLORIDE 0.9% INJ SCH ×2 (16:54→19:22)
[2019-04-06] MEDS ORDERED: POTASSIUM CHLORIDE 20% LIQUID PO ONE (17:08)
--- NOTE | 2019-04-06 23:58 | PROGRESS NOTE ---
DATE: 04/06/2019 SUBJECTIVE: Ms. Chahal was transferred from [facility] for persistent dysphagia to solid food and barium studies suggestive of possible esophageal stricture. She denies new complaints. Family is at bedside. She states it has been ongoing since last 6 months and she has significant weight loss. She also has a rectal mass. OBJECTIVE: Vital signs: Temperature 97.7 degrees, pulse 76, respiratory 18, blood pressure 102/50. She is saturating 100% on room air. General: Has severe protein calorie malnutrition, not in acute distress. Severe protein energy malnutrition. Lungs: No wheeze or crackles. Cardiovascular: Normal. No rub or gallop. Abdomen: Soft, nontender. She does have a protruding rectal mass, appears pink, not infected. LABS: Suggestive of normocytic anemia, normal platelet count. Hypokalemia, being repleted, improvement in acute kidney injury. ASSESSMENT AND PLAN: 1. Dysphagia, likely because of esophageal stricture. 2. Acute kidney injury, hypokalemia, and clinical volume depletion. 3. History of rectal mass. 4. Prior history of essential hypertension. PLAN: Keep her on IV fluids. We will keep her on a liquid diet and follow up GI recommendation. Plan of care discussed with her. All questions have been answered satisfactorily. cc: MD Hunter Pérez MD MTDD
[2019-04-07 07:52] LABS: BASO# 0.06 X1000 (0.0-0.2); BASO% 0.8 % (0.0-0.8); EOS% 4.1 % (0.0-10.0); HEMATOCRIT 31.8 % (37.0-47.0); HEMOGLOBIN 10.7 g/dL (12.0-16.0); IMM GRAN# 0.02 X1000 (0.0-0.04); IMM GRAN% 0.3 % (0.0-0.5); LYMPH# 1.69 X1000 (1.2-3.4); LYMPH% 23.4 % (20.5-51.1); MCH 28.6 PG (27-31); MCHC 33.6 g/dL (33-37); MONO# 0.78 X1000 (0.11-0.59); MONO% 10.8 % (1.7-9.3); MPV 10.2 FL (7.4-10.4); NEUT# 4.38 X1000 (1.4-6.5); NEUT% 60.6 % (42.2-75.2); PLT 309 X1000 (130-400); RBC 3.74 XMIL (4.2-5.4); RDW 13.5 % (11.5-14.5); WBC 7.23 X1000 (4.8-10.8)
[2019-04-07 08:10] LABS: AGAP 12; BUN 23 mg/dL (8-22); CALCIUM 8.3 mg/dL (8.8-10.2); CHLORIDE 109 mmol/L (98-107); COSMO 284; CREATININE 0.8 mg/dL (0.5-0.9); ESTIMATED GFR > 60; GLUCOSE 84 mg/dL (70-104); POTASSIUM 3.8 mmol/L (3.5-5.1); SODIUM 141 mmol/L (136-145); TCO2 20 mmol/L (25-35)
[2019-04-07] MEDS: NS 1,000 ML IV SCH (10:32)
[2019-04-07] MEDS: LR 1,000 ML IV SCH (12:18)
--- NOTE | 2019-04-07 14:45 | PROGRESS NOTE ---
DATE: 04/07/2019 INTERVAL HISTORY: No acute events overnight. SUBJECTIVE: She denies any complaints. We discussed about possible esophagogastroduodenoscopy today or it could happen on Tuesday. VITALS: Temperature 98.2 degrees, pulse 74 respiratory 16 blood pressure 98/69, saturating 99% on room air. PHYSICAL EXAMINATION: General: Does not appear in any acute distress. HEENT: Oral cavity is moist. Lungs: Air entry bilaterally equal. No wheeze, rhonchi, crackles. Cardiovascular: S1, S2 normal. No murmur, rub, or gallop. Abdomen: Soft, nontender. Extremities: No lower extremity edema. Rectal: She does have protruding rectal mass pinkish and multilobulated, nonbleeding on my previous rectal examination. LABS: Suggestive of normal hemoglobin. She does have hyperchloremia for which I have changed her fluids, essentially improving kidney function. No new microbiological or imaging data. ASSESSMENT AND PLAN: 1. Dysphagia likely because of esophageal stricture. 2. Acute kidney injury, hypokalemia, clinical volume depletion due to poor oral intake. 3. History of benign rectal mass. 4. History of essential hypertension, currently normotensive. I will continue her on intravenous fluid and change it to lactated Ringer's. 5. Continue her on and intravenous pantoprazole. Her potassium has been repleted. I will await further GI recommendation. cc: Te Michaud MD
[2019-04-07] MEDS: PROTONIX IV SCH (18:48)
[2019-04-07] MEDS: SODIUM CHLORIDE 0.9% INJ SCH (18:50)
--- NOTE | 2019-04-07 21:45 | GASTROENTEROLOGY CONSULTATION ---
DATE: 04/07/2019 PRIMARY CARE DOCTOR: Edis Vieira. REASON FOR CONSULTATION: Dysphagia. HISTORY OF PRESENT ILLNESS: Ms. Chahal is a 78-year-old female who was admitted on 04/05/2019, for dehydration and weakness. According to the records, she is having difficulty eating. She is only able to keep liquids down. She had been dehydrated and she had passed out at the commode while bearing down. She had a syncopal episode. 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 There was also evidence of anterior cervical osteophytes, multiple esophageal tertiary contractions, and small sliding hiatal hernia. Gastroenterology is consulted for further management. 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 PAST SURGICAL HISTORY: Nasal polyps. FAMILY HISTORY: CHF. SOCIAL HISTORY: No history of tobacco, alcohol, illicit drugs. She is . She lives with her . ALLERGIES: Levaquin. MEDICATIONS IN THE HOSPITAL: Reviewed in the EMR. REVIEW OF SYSTEMS: A 12-point review of systems is negative other than described in the HPI. PHYSICAL EXAMINATION: Temperature of 97.9 degrees, pulse rate of 70, respiratory rate of 19, blood pressure 150/49, saturating 100% on room air. Body weight 112 pounds. BMI 18.6 kg/m2.General: Thinly built, lying in bed, in no acute distress. HEENT: Pale conjunctivae. No icterus. Pupils equal, reactive to light. Neck: Supple. Abdomen: Soft, protuberant. No rebound. No guarding. Extremities: No cyanosis or clubbing. Neurologic: Alert, awake, oriented x3. LABORATORY AND DIAGNOSTIC DATA: Hemoglobin and hematocrit is 10.7 and 31.8, white count of 7.23, platelet count of 309,000. Sodium of 141, potassium of 3.8, chloride of 109, bicarbonate of 20, anion gap of 12, BUN of 23, creatinine of 0.8, glucose of 84, calcium of 8.3. AST 18, ALT 6, alkaline phosphatase 145, total protein 7.9, albumin of 4.7, lactate of 1.3. Urinalysis: Trace protein, trace white cells. Blood culture x2 negative at 48 hours. Upper GI barium study as described in HPI. She had a renal CT scan done, which showed evidence of severe urinary bladder distention causing bilateral hydronephrosis. Anders catheter recommended. Suspicious patient bowel thickening of the lower rectum, recommended exam or scoping. This had been evaluated by Dr. Adams in the past and he had planned exam under anesthesia and possible transanal resection of possible condyloma. IMPRESSION/PLAN: 1. Dysphagia. Likely secondary to esophageal stricture. We will schedule her for EGD on Tuesday. The risks, benefits, indications, and alternatives to the procedure were discussed with the patient, and all questions answered. Further recommendations pending hospital course. 2. We will keep the patient on proton pump inhibitors. 3. 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 Dr. Adams is planning exam under anesthesia and possible transanal resection. 4. History of constipation. Will keep her on bowel regimen. 5. Anemia. Continue to watch for now and transfuse as needed. 6. Acute kidney injury, hypokalemia, and clinical volume depletion due to poor oral intake. Continue IV fluids and correct electrolyte imbalance, per the primary care team. 7. Further recommendations pending clinical course of the patient. The patient had all questions answered. Please call us with any further questions. cc: MD Te Warren MD Brian R. James, MD
[2019-04-07] MEDS: ICAR-C PO SCH (22:05)
--- NOTE | 2019-04-08 08:24 | PROGRESS NOTE ---
DATE: 04/08/2019 INTERVAL HISTORY: No acute events overnight. GI is planning endoscopy tomorrow. SUBJECTIVE: Patient is sitting on the bedside commode. Denies any chest pain, shortness of breath. She was able to drink liquids without any trouble. She said occasionally she also had bleeding coming out from her mouth but she states it was after she felt her meat pieces got stuck inside the esophagus and a cracker was scratching her throat. She denies any more bleeding since the last few ones. The patient's is at bedside. VITAL SIGNS: Temperature 98.1 degrees, pulse 72, respiratory rate 14, blood pressure 130/47. She is saturating 99% on room air. PHYSICAL EXAMINATION: She appears cachectic. Has protein energy malnutrition. Oral cavity is moist. Lungs: Air entry bilaterally equal. No wheeze, rhonchi, crackles. Cardiovascular: S1, S2 normal. No murmur, rub, or gallop. Abdomen: Soft, nontender. No lower extremity edema. On my previous rectal examination, she had a protruding rectal pinkish, multilobulated, nonbleeding mass. LABS: Suggestive of stable hemoglobin, stable platelet count. There is no CBC or BMP today, though microbiology data was unremarkable. No new imaging. ASSESSMENT AND PLAN: 1. Dysphagia because of esophageal stricture. Her weight loss and previous history of bleeding are also concerning. Awaiting endoscopy on April 09. Continue pantoprazole daily. 2. Acute kidney injury, hypokalemia, clinical volume depletion because of poor oral intake on presentation, now improving. Her acute kidney injury has almost resolved. Follow up with BMP tomorrow. Continue lactated Ringer's at a slow rate. 3. 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 Surgical team was planning exam under anesthesia and possible transanal resection outpatient. 4. History of essential hypertension, currently normotensive. Continue to hold home nadolol. 5. Disposition. I will continue to monitor patient inside the hospital. Awaiting esophagogastroduodenoscopy tomorrow. Plan of care discussed with her and her at bedside. Their questions have been answered. cc: Te Michaud MD
[2019-04-08] MEDS: ICAR-C PO SCH ×2 (09:57→20:31)
[2019-04-08] MEDS: LR 1,000 ML IV SCH (09:57)
[2019-04-08] MEDS: MIRALAX PO SCH (09:57)
[2019-04-08] MEDS: CENTRUM SILVER PO SCH (09:57)
[2019-04-08] MEDS: PROTONIX IV SCH (17:55)
[2019-04-08] MEDS: SODIUM CHLORIDE 0.9% INJ SCH (17:55)
--- NOTE | 2019-04-08 18:28 | GASTROENTEROLOGY PROGRESS NOTE ---
DATE: 04/08/2019 SUBJECTIVE: Patient is resting in bed. She continues to complain of dysphagia. She is moving her bowels. She has eaten 75% of her meal. She is on a liquid diet. She denies any blood in the stools. She denies any nausea, vomiting, or vomiting blood. According to the , she did have a history of bleeding from her throat in the past after eating meat and chili. OBJECTIVE: Vital signs: Temperature 98.2 degrees, pulse rate of 74, respiratory rate of 17, blood pressure 142/48, saturating 99% on room air. Body weight of 112 pounds, BMI 18.6 kg/m2. General Appearance: Thinly built, lying in bed, in no acute distress. HEENT: Pale conjunctivae. No icterus. Neck: Supple. Abdomen: Soft, nondistended. No guarding. No rebound. Extremities: No cyanosis, clubbing. Neurologic: She is alert, awake, oriented x3. LABS: Hemoglobin and hematocrit are 10.7 and 31.8, white count of 7.23, platelet count of 379,000. Sodium 141, potassium 3.8, chloride 109, bicarb 20, anion gap 12, BUN of 23, creatinine 0.8, glucose of 84, calcium is 8.3. Blood culture x2 negative at 48 hours. IMPRESSION AND PLAN: 1. Dysphagia. Likely secondary esophageal stricture as seen on upper GI barium study. We will schedule for EGD tomorrow under anesthesia. The risks, benefits, indications, and alternatives to the procedure were discussed with the patient and family at bedside and all questions answered. The patient acknowledged understanding and agreed to proceed with the above. 2. Acute kidney injury, hypokalemia, and clinical volume depletion because of poor oral intake on presentation, now improving. 3. 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 Surgery team has seen her and Dr. Adams is planning exam under anesthesia and possible transanal resection as an outpatient. 4. History of hypertension. Currently under control. They have held her antihypertensive. 5. Gastrointestinal prophylaxis. PPIs. 6. Constipation. She is responding to the bowel regimen. We will hold MiraLAX if she continues to have more than 3 bowel movements in 24 hours. 7. Anemia. Will start on iron C b.i.d. and multivitamin once daily. 8. She may need an outpatient colonoscopy for workup of anemia. The above plan was discussed with the patient and family at bedside and all questions answered. Please call us with any further questions. cc: MD Te Warren MD Brian R. James, MD
[2019-04-09 08:05] LABS: BASO# 0.04 X1000 (0.0-0.2); BASO% 0.5 % (0.0-0.8); EOS# 0.39 X1000 (0.0-0.7); EOS% 5.3 % (0.0-10.0); HEMATOCRIT 33.1 % (37.0-47.0); HEMOGLOBIN 11.1 g/dL (12.0-16.0); LYMPH# 2.02 X1000 (1.2-3.4); LYMPH% 27.3 % (20.5-51.1); MCH 28.3 PG (27-31); MCHC 33.5 g/dL (33-37); MCV 84.4 FL (81-99); MONO# 0.49 X1000 (0.11-0.59); MONO% 6.6 % (1.7-9.3); MPV 10.5 FL (7.4-10.4); NEUT# 4.46 X1000 (1.4-6.5); NEUT% 60.3 % (42.2-75.2); PLT 312 X1000 (130-400); RBC 3.92 XMIL (4.2-5.4); RDW 13.6 % (11.5-14.5)
[2019-04-09 08:27] LABS: AGAP 10; BUN 11 mg/dL (8-22); CALCIUM 7.9 mg/dL (8.8-10.2); CHLORIDE 108 mmol/L (98-107); COSMO 280; CREATININE 0.6 mg/dL (0.5-0.9); ESTIMATED GFR > 60; GLUCOSE 89 mg/dL (70-104); MAGNESIUM 1.7 mg/dL (1.5-2.7); POTASSIUM 3.3 mmol/L (3.5-5.1); SODIUM 141 mmol/L (136-145); TCO2 23 mmol/L (25-35)
[2019-04-09] MEDS ORDERED: DIPRIVAN 1% ONE (08:41)
--- NOTE | 2019-04-09 08:49 | PROGRESS NOTE ---
DATE: 04/09/2019 INTERVAL HISTORY: No acute events overnight. She has been drinking liquids without any nausea, vomiting, dysphagia, or odynophagia. She had a liquid bowel movement. She denies new complaints. She is ready to go for EGD. I explained to the family at bedside about EGD and possible diagnosis of her dysphagia. I answered their questions. VITALS: Currently, temperature 98.8 degrees, pulse 70, respiratory rate 20, blood pressure 139/46, saturating 98% on room air. PHYSICAL EXAMINATION: General: Does not appear in acute distress. Oral cavity is moist. Lungs: Air entry bilaterally equal. No wheeze, rhonchi, crackles. Cardiovascular: S1, S2 normal. No murmur, rub, or gallop. She does have severe protein energy malnutrition. Abdomen: Scaphoid, nontender. No hepatosplenomegaly. No lower extremity edema. On previous rectal examination, she had a multiloculated, red, nonbleeding, protruding rectal mass. LABS: CBC is unremarkable. BMP is pending. ASSESSMENT AND PLAN: 1. Dysphagia because of esophageal stricture. Her weight loss, previous history of bleeding from the mouth are concerning, though her last episode of bleeding from the mouth was several weeks ago. Awaiting endoscopy. Continue pantoprazole daily. 2. Acute kidney injury, hypokalemia, clinical volume depletion on presentation because of poor oral intake, and nausea and vomiting, now improving. Follow up repeat BMP. Continue lactated Ringer's at a slow rate. 3. History of benign rectal mass, most likely condyloma. Surgical team is planning exam under anesthesia and possible transanal resection outpatient. 4. History of essential hypertension. Currently, she is normotensive; I will hold nadolol, considering she is normotensive. 5. Disposition. I would await esophagogastroduodenoscopy today and after that, would resume her on a liquid diet and would advance to softer diet the next day. If she is able to tolerate, I would anticipate discharge in the 24 hours. Plan of care was discussed with the patient and her at bedside. Their questions have been answered. cc: Te Michaud MD
[2019-04-09] MEDS: ICAR-C PO SCH ×2 (09:01→21:46)
[2019-04-09] MEDS: MIRALAX PO SCH (09:01)
[2019-04-09] MEDS: CENTRUM SILVER PO SCH (09:01)
--- NOTE | 2019-04-09 10:08 | ENDOSCOPY OPERATIVE NOTE ---
[facility] ENDOSCOPY OPERATIVE NOTE , PATIENT: Ericka Chahal ADMISSION DATE: MR#: [id number] : 1940 EGD PROCEDURE REPORT PROCEDURE DATE: 04/09/2019 SURGEON: Robert Solis MD STATUS: inpatient [employer] ADMINISTRATOR: Jennifer Moreno and Dwight Cintron PREOPERATIVE DIAGNOSIS: The patient is a 78 yr old female here for an EGD due to dysphagia, pharynge al-esophageal . PROCEDURE PERFORMED: EGD w/ biopsy EGD w/ dilation of esophagus MEDICATIONS: Per Anesthesia TOPICAL ANESTHETIC: none CONSENT: The patient understands the risks and benefits of the procedure and understands that these r isks include, but are not limited to: sedation, allergic reaction, infection, perforation and/or bleeding. Alternative means of evaluation and treatment include, among others: physical exam, x-rays, and/or surgical intervention. The patient elects to proceed with this endoscopic procedure. HISORY AND PHYSICAL: 04/09/2019 function. Hand hygiene and appropriate measures for infection prevention was taken. After the risks, benefits and alternatives of the procedure were thoroughly explained, Informed consent was verified, confirmed and timeout was successfully executed by the treatment team. The patient was anesthetized with topical anesthesia and the endoscope was introduced through the mouth and advanced to the second portion of the duodenum. Retroflexion wa s performed in the stomach and revealed no abnormalities. The gastroscope was then slowly withdrawn and removed. ESOPHAGUS: A moderately severe Schatzki ring was found in the proximal esophagus and distal esophagus . The stricture was dilated using a 14mm (42Fr) Orellana dilator. Following this dilation, there was a small mucosal rent and a small amount of heme. STOMACH: Mild gastritis (inflammation) was found in the gastric body and gastric antrum. Multiple bi opsies were performed using cold forceps. Sample sent for histology. DUODENUM: The duodenal mucosa showed no abnormalities in the duodenal bulb, 1st part duodenum, and 2n d part duodenum. SPECIMENS REMOVED: Yes ADVERSE EVENTS: There were no complications. POSTOPERATIVE DIAGNOSIS: 1. Schatzki ring was found in the proximal esophagus and distal esophag us; The stricture was dilated using a 14mm (42Fr) Orellana dilator.; Following this dilation, there was a small mucosal rent and a small amount of heme 2. Gastritis (inflammation) was found in the gastric body and gastric antrum; multiple biopsies were performed 3. The duodenal mucosa showed no abnormalities in the duodenal bulb, 1st part duodenum, and 2nd part duodenum RECOMMENDATIONS: 1. Follow-up biopsy results in 2 weeks 2. Avoid non-steroid anti-inflammatory drugs 3. PPI BID for 3 months; Start Clear Liquid diet for 1-2 days and then advance as tolerated. REPEAT EXAM: Robert Solis MD eSigned: Robert Solis MD 04/09/2019 12:32 PM Revised: 04/09/2019 12:32 PM cc: PATIENT NAME: Ericka Chahal MR#: [id number]
[2019-04-09] MEDS: CARAFATE LIQUID PO SCH ×2 (16:19→21:45)
[2019-04-09] MEDS: LR 1,000 ML IV SCH (16:20)
[2019-04-09] MEDS: SODIUM CHLORIDE 0.9% INJ SCH (16:20)
[2019-04-09] MEDS: PROTONIX IV SCH (21:49)
[2019-04-10] MEDS: LR 1,000 ML IV SCH (01:32)
[2019-04-10] MEDS: CARAFATE LIQUID PO SCH ×4 (01:34→22:23)
[2019-04-10] MEDS: CENTRUM SILVER PO SCH (08:16)
[2019-04-10] MEDS: SODIUM CHLORIDE 0.9% INJ SCH (08:16)
[2019-04-10] MEDS: MIRALAX PO SCH (08:16)
[2019-04-10] MEDS: PROTONIX IV SCH ×2 (08:16→22:24)
[2019-04-10] MEDS: ICAR-C PO SCH (08:16)
[2019-04-10 15:41] LABS: AGAP 12; BUN 10 mg/dL (8-22); CHLORIDE 105 mmol/L (98-107); COSMO 283; CREATININE 0.8 mg/dL (0.5-0.9); ESTIMATED GFR > 60; GLUCOSE 173 mg/dL (70-104); MAGNESIUM 1.7 mg/dL (1.5-2.7); POTASSIUM 3.4 mmol/L (3.5-5.1); SODIUM 140 mmol/L (136-145); TCO2 23 mmol/L (25-35)
[2019-04-10] MEDS ORDERED: POTASSIUM PHOSPHATE 50 MMOL in NS 250 ML IV ONE (17:45)
[2019-04-10] MEDS ORDERED: MAGNESIUM SULFATE 2 GM/S.W.I. 2 GM/50 ML IVPB IV ONE (18:52)
[2019-04-10] MEDS ORDERED: NS 500 ML ONE (18:57)
--- NOTE | 2019-04-10 19:42 | PROGRESS NOTE ---
DATE: 04/10/2019 SUBJECTIVE: The patient is resting comfortably in bed. She states that she was able to swallow her meals today without any difficulty. OBJECTIVE: Vital Signs: Temperature 98.9 degrees, blood pressure 141/46, heart rate 79, respirations 17, O2 saturation 99% on room air. General: This is an elderly female lying in bed in no acute distress. Heart: S1, S2 normal. Regular rate and rhythm. Lungs: Clear to auscultation bilaterally. Abdomen: Positive bowel sounds. Soft, nontender, nondistended. Extremities: No edema. No cyanosis. Neurologic: The patient is alert and oriented x3. LABORATORY DATA: Sodium 140, potassium 3.4, chloride 105, CO2 23, BUN 10, creatinine 0.8, glucose 173. ASSESSMENT AND PLAN: 1. Dysphagia,status post esophageal dilation. The patient is tolerating her soft diet. Continue on proton pump inhibitor therapy. 2. Gastritis. Continue on Protonix twice a day. 3. Hypokalemia. We will replace the patient's potassium. 4. Hypophosphatemia. We will replace the patient's phosphorus. 5. Deep vein thrombosis prophylaxis. Continue with Sequential compression devices. cc: Marla Quintana MD MTDD
--- NOTE | 2019-04-10 22:52 | PROVIDER PROGRESS NOTE ---
Progress Note S: No acute overnight events. Patient denies complaints. O: Last Vital Signs Temp 98.9 F 04/10/19 21:51 Pulse 82 04/10/19 21:51 Resp 17 04/10/19 14:00 BP 163/55 04/10/19 21:51 Pulse Ox 99 04/10/19 21:51 Height 5 ft 5 in Weight 112 lb GEN: awake, alert, NAD HEENT: anicteric, MMM NECK: supple, no JVD PULM: CTAB CV: RRR, no murmurs ABD: soft NT/ND, NABS EXT: no cce LABS: 04/10/19 14:27 Potassium 3.4 L Creatinine 0.8 EGD 04/09/2019 ESOPHAGUS: A moderately severe Schatzki ring was found in the proximal esophagus and distal esophagus. The stricture was dilated using a 14mm (42Fr) Orellana dilator. Following this dilation, there was a small mucosal rent and a small amount of heme. STOMACH: Mild gastritis (inflammation) was found in the gastric body and gastric antrum. Multiple biopsies were performed using cold forceps. Sample sent for histology. DUODENUM: The duodenal mucosa showed no abnormalities in the duodenal bulb, 1st part duodenum, and 2nd part duodenum. A/P:Ms. Ericka Chahal is a 78 year old woman admitted with food impaction found to have moderate Schatzki's ring in distal esophagus s/p dilation. Also, mild gastritis was biopsied. # Food impaction: resolved; recommend PPI PO BID for 3 months, avoid NSAIDs, dysphagia precautions, advance diet as tolerated; follow-up in GI clinic in 2-4 weeks. Repeat EGD prn for dysphagia. # Dysphagia # GERD # Hypokalemia: replete prn Will sign off. Please call with questions
[2019-04-11] MEDS: ICAR-C PO SCH ×2 (01:50→08:43)
[2019-04-11] MEDS: CARAFATE LIQUID PO SCH ×2 (04:44→08:41)
[2019-04-11 07:33] VITALS: BP 148/53
[2019-04-11 07:41] LABS: AGAP 12; ALBUMIN 2.8 g/dL (3.5-5.0); BUN 8 mg/dL (8-22); CALCIUM 8.1 mg/dL (8.8-10.2); CHLORIDE 107 mmol/L (98-107); COSMO 283; CREATININE 0.6 mg/dL (0.5-0.9); ESTIMATED GFR > 60; GLUCOSE 96 mg/dL (70-104); MAGNESIUM 2.4 mg/dL (1.5-2.7); PHOSPHORUS 3.7 mg/dL (2.7-4.5); POTASSIUM 3.9 mmol/L (3.5-5.1); SODIUM 143 mmol/L (136-145); TCO2 24 mmol/L (25-35)
[2019-04-11] MEDS ORDERED: VITAMIN D PO SCH (08:15)
[2019-04-11] MEDS: PROTONIX IV SCH (08:41)
[2019-04-11] MEDS: SODIUM CHLORIDE 0.9% INJ SCH (08:42)
[2019-04-11] MEDS: MIRALAX PO SCH (08:43)
[2019-04-11] MEDS: CENTRUM SILVER PO SCH (08:43)
--- NOTE | 2019-04-22 18:15 | DISCHARGE SUMMARY ---
ADMISSION DATE: 04/05/2019 DISCHARGE DATE: 04/11/2019 FINAL DISCHARGE DIAGNOSES: 1. Dysphagia status post esophageal dilation. 2. Gastritis. 3. Hypokalemia. 4. Hypophosphatemia. 5. Vitamin D deficiency. CONSULTATIONS: GI consultation with Dr. Solis. PROCEDURES: EGD with biopsy and dilation of the esophagus performed on April 09, 2019, which revealed gastritis as well as a Schatzki ring that was dilated. HOSPITAL COURSE: Ms. Chahal is a 78-year-old female who presented to the ER with a chief complaint of dysphagia. The patient was admitted to the hospitalist service, and GI was consulted. The patient was taken for endoscopy on 04/09/2019 at which time the patient was noted to have a Schatzki ring which was dilated. Also, the patient was noted to have gastritis. Following the procedure, the patient was started on a full liquid diet which was advanced as tolerated. The patient was placed on proton pump inhibitor therapy twice a day and advised to avoid NSAIDs. The patient had multiple gastric biopsies performed. At the time of this dictation, the biopsies were pending. The patient will follow up with Dr. Solis to receive the results of the biopsies done during the EGD. DISCHARGE MEDICATIONS: 1. Protonix 40 mg p.o. twice a day. 2. Vitamin D2, 50,000 units oral once a week. 3. Nadolol 80 mg p.o. daily. DISCHARGE DIET: GI soft diet. ACTIVITY: As tolerated. FOLLOWUP INSTRUCTIONS: The patient will need to follow up with Dr. Solis in 1 to 2 weeks for the results of the gastric biopsies. The patient will need to follow up with Dr. Vieira within 2 weeks. cc: MD Edis Phelan MD
== END 2019-04-11 10:53 | disposition home or self-care (01) | DRG 391 ==
LOC: P.ED 03:35 → P.MEDSURG 10:02 → SUATTDRO 10:02 → 3N 04-06 15:24
PROVIDERS: ATTEND Internal Medicine

== ENCOUNTER 2019-04-28 14:42 | Inpatient (IN) ==
[2019-04-28] MEDS ORDERED: ZOFRAN IV ONE (15:05)
[2019-04-28] MEDS ORDERED: NS 1,000 ML IV ONE ×3 (15:05→19:06)
--- NOTE | 2019-04-28 15:09 | PROVIDER DOCUMENTATION ---
HPI-Abdominal Pain/GI Problem - General Chief Complaint: N/V/D Stated Complaint: NAUSEA / PASSED OUT Time Seen by Provider: 04/28/19 15:02 Source: patient, family Allergies/Adverse Reactions: Patient Allergies Allergy/AdvReac Type Severity Reaction Status Date / Time levofloxacin [From Levaquin] Allergy NAUSEA/VOMI Verified 04/05/19 07:51 TING fluorouracil AdvReac VOMITING Verified 04/28/19 14:49 Home Medications: Home Medication List Medication Instructions Recorded Confirmed Last Taken Type Nadolol 80 mg PO DAILY 03/23/19 04/28/19 03/23/19 History Pantoprazole [Protonix] 40 mg PO BID #60 tab 04/10/19 04/28/19 Unknown Rx Ergocalciferol (Vitamin D2) 50,000 unit PO Q7D #10 cap 04/11/19 04/28/19 Unknown Rx [Vitamin D2] Clarithromycin [Biaxin] 1 tab PO BID 04/28/19 04/28/19 Unknown History Ondansetron [Zofran] 1 tab PO DIRECTED 04/28/19 04/28/19 Unknown History - History of Present Illness-ABD Nature of Presenting Problems: 78yof presents to ED c/o 5 day history of N/V/D and dizziness, near syncope with position changes. Her states she has a history of same related to dehydration. She began antibiotics yesterday for a stomach infection. Quality of Pain: reports: none Onset/Duration: reports: gradual, 5 days ago Timing: reports: still present Activities at Onset: reports: none Exposure to sick contacts?: No Modifying Factors: improves with: eating Associated Symptoms: reports: diarrhea, nausea, vomiting Last BM: this morning Dark Stools Present?: reports: none noticed Rectal Bleeding: reports: none Rectal Pain: reports: none Bruising or Bleeding Gums?: No Similar Symptoms Previously?: No Recently seen or treated by another doctor?: No Review of Systems - Adult - REVIEW OF SYSTEMS - ADULT Constitutional: reports: no symptoms reported Eyes: reports: no symptoms reported Ears, Nose, Mouth & Throat: reports: no symptoms reported Cardiovascular: reports: no symptoms reported Respiratory: reports: no symptoms reported Gastrointestinal: reports: see HPI, diarrhea, nausea, vomiting Genitourinary: reports: no symptoms reported Musculoskeletal: reports: no symptoms reported Integumentary: reports: no symptoms reported Neurological: reports: no symptoms reported Psychiatric: reports: no symptoms reported Endocrine: reports: no symptoms reported Hematologic/Lymphatic: reports: no symptoms reported Allergic/Immunologic: reports: no symptoms reported All Other Systems: Reviewed and Negative Past History - Adult - PAST MEDICAL HISTORY-ADULT Review of Records: reports: Old Records Reviewed, Nursing Assessment Review, Medications Reviewed, Social history reviewed & non-contributory. Major Childhood Illnesses: reports: denies history Cardiovascular: reports: HTN, hyperlipidemia Respiratory: reports: denies history Gastrointestinal: reports: denies history Obstetrical/Gynecological: reports: denies history Genitourinary: reports: denies history Musculoskeletal: reports: denies history Neurological: reports: denies history Endocrine/Immune: reports: denies history Other Conditions: reports: denies history - SOCIAL HISTORY Smoking: non-smoker Living Situation: family Physical Exam-General - PHYSICAL EXAM-ADULT Initial Vital Signs Reviewed: Yes - CONSTITUTIONAL General Appearance: appears well, alert, no apparent distress - EYES Eyes: PERRL/EOMI, pink conjunctivae - HEAD, EARS, NOSE, MOUTH & THROAT HENMT: normocephalic/atraumatic, normal ENT inspection, TMs normal, pharynx normal, other (Dry MM) - NECK Neck: non-tender, full range of motion, supple, normal inspection - RESPIRATORY Respiratory: chest non-tender, lungs clear, normal breath sounds - CARDIOVASCULAR Cardiovascular: normal peripheral pulses, regular rate, rhythm, no edema, no gallop, no JVD - GASTROINTESTINAL (ABDOMEN) Abdominal Exam: normal bowel sounds, soft, no organomegaly, tenderness (mild diffuse nonspecific; no RT/rigidity/distention) - GENITOURINARY Rectal Exam: mass (extending out of rectum (Dr. 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, grossly normal, no motor/sensory deficits - PSYCHIATRIC Psych/Mental Status: normal mood/affect, normal thought content, normal thought process, oriented x 3 Progress - PLAN OF CARE/RESULTS Progress/Plan/Lab Results: Vital Signs - 8 hr 04/28/19 14:44 Temperature 97.4 F L Pulse Rate 115 H Respiratory Rate 18 Blood Pressure 106/75 O2 Sat by Pulse Oximetry 96 Orders Category Date Time Status Saline Loc NOW Care 04/28/19 14:51 Active FLAT/UPRIGHT ABD/1 VIEW CHEST [RAD] Stat Exams 04/28/19 14:50 Ordered AMYLASE [CHEM] Stat Lab 04/28/19 14:50 Ordered CBC WITH DIFF [HEME] Stat Lab 04/28/19 14:50 Ordered COMPREHENSIVE METABOLIC PANEL [CHEM] Stat Lab 04/28/19 14:50 Uncollected LIPASE [CHEM] Stat Lab 04/28/19 14:[address] W/POSS RFLX CULT [URINALYSIS] Stat Lab 04/28/19 14:50 Uncollected Ns 1000 ml IV Bolus X1 Med 04/28/19 15:05 Ordered 0.9% Sodium Chloride Inj [Ns] 1,000 ml IV 999 mls/hr Ondansetron [Zofran] Med 04/28/19 15:05 Once 4 mg IV NOW ONE Lab results, imaging results, and plan of care discussed with patient who agrees with and verbalizes understanding. Plan of care discussed and formulated in conjunction with Dr. Lundberg who co- examined the patient. Result Diagrams: 04/28/19 15:00 04/28/19 15:00 - REASSESSMENT Reassessment #1 Time Reassessed: 16:37 (A[address] results. Pt has elevated WBC with vomiting and diarrhea with creatinine >2. Noncontrast CT A/P pending.) - XRAY 1 XRAY: Bilateral XRAY Study: Abdomen Impression: See EMR Report ([facility] - [address] [facility] [address] [id number] [facility] - [address] [place] [id number] Department of Imaging Patient: GRADY TANNER Date: 04/28/19MR#: [id number] : 1940ADM Status: REG ERAcct#: [id number] Age/Sex: 78/FRoom/Bed: Loc: P.ED Ordering Physician: Baltazar Lundberg MD Family Physician: Edis Vieira MD Reason for Procedure: nvd Signed FLAT/UPRIGHT ABD/1 VIEW CHEST - 04/28/2019 INDICATION: nvd TECHNIQUE: COMPARISON: 04/06/2019 FINDINGS: The chest is clear. There is moderate constipation. There is some barium throughout the colon. No small bowel obstruction or free air. IMPRESSION: Significant constipation. Electronically signed by Aidan Yuen 04/28/2019 4:05 PM 04/28/19 1608 Interpreting Physician: Aidan Yuen MD Dictated Date/Time: 04/28/19 1607 cc: Baltazar Lundberg MD; Edis Vieira MD) - CT/MRI 1 CT Study: Abdomen, Pelvis Impression: See EMR Report ([facility] - [address] [facility], [address], [place] [address] [facility] - [address] [place] [address] Department of Imaging Patient: GRADY TANNER Date: 04/28/19MR#: [id number] : 1940ADM Status: REG ERAcct#: [id number] Age/Sex: 78/FRoom/Bed: Loc: P.ED Ordering Physician: Danna Waters Family Physician: Edis Vieira MD Reason for Procedure: vomiting/diarrhea, leukocytosis, renal failure Signed CT ABDOMEN/PELVIS W/O CONTRAST - 04/28/2019 INDICATION: vomiting/diarrhea, leukocytosis, renal failure COMPARISON: 04/05/2019 FINDINGS: There are couple of bronchi or mucus impacted in the right middle lobe. No dense infilt rates. There is no significant hydronephrosis at this point. No radiodense renal stones. There is severe constipation. There is a large rectal mass as was mentioned previously. Urinary bladder is somewhat distended but far less so than on the prior exam. The uterus is grossly normal. 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 No new bony lesions. IMPRESSION: Nonspecific findings. This exam was performed using automated exposure control, adjustment of mA or kV according to patient size, and/or use of iterative reconstruction technique Electronically signed by Aidan Yuen 04/28/2019 5:51 PM 04/28/19 1751 Interpreting Physician: Aidan Yuen MD Dictated Date/Time: 04/28/19 1742 cc: Danna Waters; Edis Vieira MD) 2 CT Study: Head Impression: See EMR Report ([facility] - [address] [place] [address] [address], [place] [address] [facility] - [address] [place] [address] Department of Imaging Patient: GRADY TANNER Date: 04/28/19#: [id number] : 1940ADM Status: REG ERAcct#: [id number] Age/Sex: 78/FRoom/Bed: Loc: P.ED Ordering Physician: Danna Waters Family Physician: Edis Vieira MD Reason for Procedure: Dizziness, vomiting Signed CT HEAD W/O CONTRAST - 04/28/2019 INDICATION: Dizziness, vomiting COMPARISON: None FINDINGS: The ventricles and sulci are normal in size and contour. No intracranial mass or hemorrhage. There is some minimal periventricular and deep cerebral white matter chronic microvascular ischemia. The skull is intact. There is advanced multifocal sinusitis appears chronic. This is worst at the right maxillary sinus and sphenoid sinuses. Some ethmoid sinuses and the right frontal sinus is also affected. IMPRESSION: Mild chronic microvascular ischemia. Advanced sinusitis. This exam was performed using automated exposure control, adjustment of mA or kV according to patient size, and/or use of iterative reconstruction technique Electronically signed by Aidan Yuen 04/28/2019 3:48 PM 04/28/19 1548 Interpreting Physician: Aidan Yuen MD Dictated Date/Time: 04/28/19 1546 cc: Danna Waters; Edis Vieira MD) - CONSULTS/PCP/HOSPITALIST Notification #1 *Consult/PCP/Hospitalist*: Jesse Wrightist Time Discussed: 18:45 (Dr. Lundberg consulted) Reason/Comments: LUCINDA, dehydration, near syncope Consult Disposition: Admit - CHANGE OF SHIFT REPORT (ED Provider) 1 Report Given and Care Transferred to:: CARA Cruz Time of Transfer: 17:00 Items Pending: CT/MRI Results (CT abdomen/pelvis pending.) Departure - Departure Date of Disposition Decision: 04/28/19 Time of Disposition Decision: 18:45 DIAGNOSIS: Near syncope, Dehydration, Acute kidney injury, Hyponatremia, Dizziness Vomiting Qualifiers: Vomiting type: unspecified Vomiting Intractability: unspecified Nausea presence: with nausea Qualified Code(s): R11.2 - Nausea with vomiting, unspecified Diarrhea Qualifiers: Diarrhea type: unspecified type Qualified Code(s): R19.7 - Diarrhea, unspecified Leukocytosis Qualifiers: Leukocytosis type: other Qualified Code(s): D72.828 - Other elevated white blood cell count Disposition: ADMITTED INPATIENT 09 Certified Medical Emergency: Emergent Condition: Stable Referrals and Follow-Ups: Edis Vieira MD [Primary Care Provider] - Call for Appoint. 1-2days (Follow up on Tuesday, April 30, 2019.) - Critical Care Note This patient required my direct & personal management of CC.: No Attestation - Physician/ JOEL Attestation Patient care was provided by Advanced Practice Provider:: Yes Advanced Practice Provider:: Danna Waters Advanced Practice Provider documentation review:: The Mid-level provider documentation, treatment plan and medical decision making was reviewed by the physician who agrees with all treatment and medical decision making by the MLP. The physician spent face to face time with patient:: Yes (Toño) Advanced Practice Provider documentation review:: Supervising physician onsite and consulted in the evaluation and care of this patient. The physician did have a face to face encounter with the patient.
[2019-04-28 15:51] LABS: BASO# 0.04 X1000 (0.0-0.2); BASO% 0.3 % (0.0-0.8); EOS# 0.04 X1000 (0.0-0.7); EOS% 0.3 % (0.0-10.0); HEMOGLOBIN 14.6 g/dL (12.0-16.0); IMM GRAN# 0.04 X1000 (0.0-0.04); IMM GRAN% 0.3 % (0.0-0.5); LYMPH# 1.87 X1000 (1.2-3.4); LYMPH% 12.4 % (20.5-51.1); MCH 28.3 PG (27-31); MCV 83.3 FL (81-99); MONO% 5.3 % (1.7-9.3); MPV 10.6 FL (7.4-10.4); NEUT# 12.26 X1000 (1.4-6.5); NEUT% 81.4 % (42.2-75.2); PLT 608 X1000 (130-400); RBC 5.16 XMIL (4.2-5.4); RDW 13.1 % (11.5-14.5); WBC 15.05 X1000 (4.8-10.8)
--- NOTE | 2019-04-28 15:51 | Diag Imaging Result Doc PS360 ---
CT HEAD W/O CONTRAST - 04/28/2019 INDICATION: Dizziness, vomiting COMPARISON: None FINDINGS: The ventricles and sulci are normal in size and contour. No intracranial mass or hemorrhage. There is some minimal periventricular and deep cerebral white matter chronic microvascular ischemia. The skull is intact. There is advanced multifocal sinusitis appears chronic. This is worst at the right maxillary sinus and sphenoid sinuses. Some ethmoid sinuses and the right frontal sinus is also affected. IMPRESSION: Mild chronic microvascular ischemia. Advanced sinusitis. This exam was performed using automated exposure control, adjustment of mA or kV according to patient size, and/or use of iterative reconstruction technique Electronically signed by Aidan Yuen 04/28/2019 3:48 PM
--- NOTE | 2019-04-28 16:07 | Diag Imaging Result Doc PS360 ---
FLAT/UPRIGHT ABD/1 VIEW CHEST - 04/28/2019 INDICATION: nvd TECHNIQUE: COMPARISON: 04/06/2019 FINDINGS: The chest is clear. There is moderate constipation. There is some barium throughout the colon. No small bowel obstruction or free air. IMPRESSION: Significant constipation. Electronically signed by Aidan Yuen 04/28/2019 4:05 PM
[2019-04-28 16:10] LABS: CALCIUM 10.2 mg/dL (8.8-10.2); CREATININE 2.3 mg/dL (0.5-0.9); POTASSIUM 3.8 mmol/L (3.5-5.1); TOTAL BILIRUBIN 0.8 mg/dL (0.20-1.00); TOTAL PROTEIN 8.4 g/dL (6.3-8.3)
--- NOTE | 2019-04-28 16:24 | EKG Report ---
Test Performed on : 04/28/2019 3:25:42 PM Test Reason : dizziness, vomiting Blood Pressure : / mmHG Vent. Rate : 098 BPM Atrial Rate : 098 BPM P-R Int : 144 ms QRS Dur : 082 ms QT Int : 372 ms P-R-T Axes : 081 023 059 degrees QTc Int : 474 ms Normal sinus rhythm. Normal ECG When compared with ECG of 05-APR-2019 06:29, (Unconfirmed) Nonspecific T wave abnormality no longer evident in Inferior leads Unconfirmed Result
[2019-04-28 16:47] LABS: BILIRUBIN URINE NEGATIVE (NEGATIVE); BLOOD URINE NEGATIVE (NEGATIVE); CLARITY CLEAR (CLEAR); COLOR YELLOW; GLUCOSE URINE NEGATIVE (NEGATIVE); KETONE URINE TRACE mg/dL (NEGATIVE); LEUKOCYTES URINE TRACE (NEGATIVE); NITRITE URINE NEGATIVE (NEGATIVE); PH URINE 6.5; PROTEIN URINE TRACE mg/dL (NEGATIVE); UROBILINOGEN URINE NORMAL
[2019-04-28 16:48] LABS: URINE SOURCE CLEAN CATCH
[2019-04-28 16:49] LABS: URINE BACTERIA 1+ /HFP; URINE CAST NONE SEEN /LPF; URINE CRYSTAL NONE SEEN /HPF; URINE EPITHELIAL CELLS >10 /HPF (<10); URINE RBC <10 /HPF (<10); URINE WBC <10 /HPF (<10); URINE YEAST NONE SEEN /HPF
--- NOTE | 2019-04-28 17:47 | ED EKG INTERP ---
This chart was entered by Renuka Jay Scribe, acting as scribe for Baltazar Lundberg MD. EKG Interpretation - EKG Time of EKG reading by physician:: 15:59 EKG Read and Signed by:: Baltazar Lundberg EKG Interpretation (*Must complete 3 of following elements*): Normal Rate: 98 Rhythm: nsr QRS: normal WA Interval: normal Attestation - Physician/ JOEL Attestation Patient care was provided by Advanced Practice Provider:: No The physician spent face to face time with patient:: Yes Advanced Practice Provider documentation review:: Supervising physician onsite and consulted in the evaluation and care of this patient. The physician did have a face to face encounter with the patient. This chart was documented by the indicated scribe, (Renuka Jay Scribe) and accurately reflects the services I performed and decisions made by me, Baltazar Lundberg MD, as attested by the provider's signature.
--- NOTE | 2019-04-28 17:53 | Diag Imaging Result Doc PS360 ---
CT ABDOMEN/PELVIS W/O CONTRAST - 04/28/2019 INDICATION: vomiting/diarrhea, leukocytosis, renal failure COMPARISON: 04/05/2019 FINDINGS: There are couple of bronchi or mucus impacted in the right middle lobe. No dense infiltrates. There is no significant hydronephrosis at this point. No radiodense renal stones. There is severe constipation. There is a large rectal mass as was mentioned previously. Urinary bladder is somewhat distended but far less so than on the prior exam. The uterus is grossly normal. 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 No new bony lesions. IMPRESSION: Nonspecific findings. This exam was performed using automated exposure control, adjustment of mA or kV according to patient size, and/or use of iterative reconstruction technique Electronically signed by Aidan Yuen 04/28/2019 5:51 PM
[2019-04-28] MEDS ORDERED: SODIUM CHLORIDE 0.9% INJ ONE (18:33)
[2019-04-28] MEDS ORDERED: PHENERGAN IV ONE (18:33)
[2019-04-28 19:09] LABS: OCCULT BLOOD 1 POSITIVE (NEGATIVE)
[2019-04-29] MEDS ORDERED: AMOXIL LIQUID PO SCH ×2 (10:30→21:00)
--- NOTE | 2019-04-29 10:44 | HISTORY AND PHYSICAL ---
CHIEF COMPLAINT: Syncope and generalized weakness. HISTORY OF PRESENT ILLNESS: This is a 78-year-old female who came in yesterday afternoon to the emergency department with a 5-day history of nausea, along with gagging and generalized weakness. Yesterday morning, she was not able to get up, and therefore she wanted to come to the hospital. When she did try to get up, she passed out, and was brought into the emergency room for further evaluation. She still feels somewhat weak. PAST MEDICAL HISTORY: 1. Hypertension. 2. Dysphagia with history of esophageal stenosis, status post dilatation on EGD. 3. Helicobacter pylori gastritis. SOCIAL HISTORY: The patient does not smoke any tobacco products, nor does she drink any alcohol. CURRENT HOME MEDICATIONS: 1. Amoxicillin 400 mg twice daily. 2. Clarithromycin 500 mg orally twice daily. 3. Vitamin D2, 50,000 units orally once a week. 4. Nadolol 80 mg orally once daily. 5. Protonix 40 mg orally twice daily. ALLERGIES: She reports to be allergic to levofloxacin and fluorouracil. REVIEW OF SYSTEMS: A full 14-point review of systems was obtained that was pretty much the same as already has been explained in the HPI. PHYSICAL EXAMINATION: VITAL SIGNS: Temperature 98.1 degrees, pulse 83 per minute, respiratory rate 18 per minute, blood pressure 130/54, pulse oximetry 99% on room air. GENERAL: The patient is alert and oriented x3. She does not appear to be in any acute distress. HEENT: Within normal limits. NECK: Supple without any thyromegaly. LYMPHATICS: No lymphadenopathy noted in the neck region. CHEST: Chest wall is nontender. CARDIOVASCULAR: First and second heart sounds are audible without any murmurs or gallops. RESPIRATORY: No respiratory distress noted. Bilateral lung air entry is good without any rales or rhonchi. GASTROINTESTINAL: Abdomen is soft and nondistended. Normal bowel sounds are present. NEUROLOGIC: No focal deficits are present. GENITOURINARY: Deferred. INTEGUMENTARY: Skin is warm and dry without any rash. MUSCULOSKELETAL: No deformities are present. DIAGNOSTIC DATA: CBC shows WBC count of 15.05 and platelet count of 608,000. Neutrophils were found to be 81.4%. Rest of the CBC is nondiagnostic. Comprehensive metabolic panel showed BUN of 50, creatinine 2.3, and glucose levels of 165. Alkaline phosphatase was slightly elevated at 196. Rest of the comprehensive metabolic panel is nondiagnostic. Urinalysis done yesterday at the emergency room was nondiagnostic. Abdominal x-rays showed significant constipation, and abdominal and pelvic CT scan showed nonspecific findings. CT scan of the head was also done that showed mild chronic microvascular ischemia with advanced sinusitis. ECG obtained at the emergency room showed sinus rhythm with a ventricular rate of 98 beats per minute with no ischemic abnormalities. IMPRESSION: 1. Nausea with dysphagia and poor intake in this 78-year-old lady who has acute kidney injury secondary to dehydration, causing her to have a syncopal episode. 2. Hypertension that has been stable. PLAN: We are going to keep her here at the medical/surgical floor, and continue with IV fluids, normal saline at 100 mL an hour. We are going to continue with her amoxicillin, clarithromycin, and pantoprazole administration because of recently found Helicobacter pylori positive. She is able to swallow at this time because of esophageal dilatation, and I believe she needs to follow up with GI as outpatient once discharged from the hospital. Her blood pressure has remained stable, and therefore we are going to continue with nadolol 80 mg orally once daily. She can be probably discharged home in the next couple of days if remains stable, and her acute kidney injury with elevated BUN and creatinine get better. She does have leukocytosis of 15,000, but that appears to be secondary to dehydration and hemoconcentration, which is expected to improve with hydration. cc: Medina Barrett MD
[2019-04-29] MEDS: BIAXIN PO SCH ×2 (11:00→21:02)
[2019-04-29] MEDS: NS 1,000 ML IV SCH (11:00)
[2019-04-29] MEDS: AMOXIL LIQUID PO SCH ×3 (11:00→21:01)
[2019-04-29] MEDS: PROTONIX PO SCH ×2 (12:48→21:02)
--- NOTE | 2019-04-29 16:41 | Diag Imaging Result Doc PS360 ---
CHEST-PORTABLE - 04/29/2019 INDICATION: Syncope COMPARISON: 04/28/2019 FINDINGS: There is a small indeterminate density in the lateral right upper lobe. This may be an infiltrate or nodule. Heart size is normal. Pulmonary vascularity is normal. No pneumothorax or pleural effusion. IMPRESSION: Small infiltrate or pulmonary nodule in the right upper lobe. May have been present previously, but this is more visible on today's exam. Follow-up recommended. Electronically signed by Aidan Yuen 04/29/2019 4:39 PM
[2019-04-29] MEDS ORDERED: BIAXIN PO SCH (21:00)
[2019-04-30] MEDS: NS 1,000 ML IV SCH ×3 (00:18→20:18)
[2019-04-30 06:37] LABS: BASO# 0.09 X1000 (0.0-0.2); BASO% 1.1 % (0.0-0.8); EOS# 0.23 X1000 (0.0-0.7); EOS% 2.8 % (0.0-10.0); HEMATOCRIT 31.5 % (37.0-47.0); IMM GRAN# 0.02 X1000 (0.0-0.04); IMM GRAN% 0.2 % (0.0-0.5); LYMPH# 2.53 X1000 (1.2-3.4); MCH 27.5 PG (27-31); MCHC 31.7 g/dL (33-37); MCV 86.8 FL (81-99); MONO# 0.91 X1000 (0.11-0.59); MONO% 11.2 % (1.7-9.3); MPV 10.3 FL (7.4-10.4); NEUT# 4.37 X1000 (1.4-6.5); NEUT% 53.7 % (42.2-75.2); PLT 315 X1000 (130-400); RBC 3.63 XMIL (4.2-5.4); RDW 13.1 % (11.5-14.5); WBC 8.15 X1000 (4.8-10.8)
[2019-04-30 07:13] LABS: CALCIUM 8.6 mg/dL (8.8-10.2); CREATININE 1.1 mg/dL (0.5-0.9); MAGNESIUM 2.3 mg/dL (1.5-2.7); POTASSIUM 3.3 mmol/L (3.5-5.1)
[2019-04-30] MEDS ORDERED: KLOR-CON PO ONE (07:25)
[2019-04-30] MEDS: CORGARD PO SCH (09:55)
[2019-04-30] MEDS: PROTONIX PO SCH ×2 (09:58→20:54)
[2019-04-30] MEDS: BIAXIN PO SCH ×2 (09:58→20:54)
[2019-04-30] MEDS: AMOXIL LIQUID PO SCH ×2 (10:00→20:54)
--- NOTE | 2019-04-30 21:01 | PROGRESS NOTE ---
DATE: 04/29/2019 SUBJECTIVE: The patient notes that she is feeling better, although she has really not been out of bed yesterday. Denies any syncope. She has been out to the restroom. OBJECTIVE: Vital signs: Temperature 98, pulse 79, respiratory rate 16, BP 122/59. General: Patient is awake, in no respiratory distress, lying flatly in bed. HEENT: Normocephalic. Neck: Supple. Cardiovascular: Regular rate. Chest: Clear. Abdomen: Soft. ASSESSMENT: 1. Syncope, appears to have resolved. 2. Hypertension. 3. Nausea with dysphagia. PLAN: The patient currently is on Levoxyl and Biaxin she states for her stomach I would assume for H pylori. We are going to keep her in the hospital today and follow. We will attempt to get her out of bed. If she does well, hopefully, she can discharge home tomorrow. cc: Allen Wright MD
[2019-05-01] MEDS: NS 1,000 ML IV SCH (05:35)
[2019-05-01] MEDS: CORGARD PO SCH (10:37)
[2019-05-01] MEDS: BIAXIN PO SCH (10:37)
[2019-05-01] MEDS: PROTONIX PO SCH (10:38)
[2019-05-01] MEDS: AMOXIL LIQUID PO SCH (10:38)
[2019-05-01 15:37] VITALS: BP 146/57
[2019-05-02] MEDS ORDERED: VITAMIN D PO SCH (09:00)
--- NOTE | 2019-05-02 11:23 | DISCHARGE SUMMARY ---
ADMISSION DATE: 04/28/2019 DISCHARGE DATE: 05/01/2019 DISCHARGE DIAGNOSES: 1. Syncope. 2. Hypertension. 3. Nausea and vomiting. 4. Dehydration. 5. Acute kidney injury. CONSULTATIONS: None. HOSPITAL COURSE: Briefly, this 78-year-old female with gagging, nausea, she has H. pylori gastritis for which she has been getting treatment. She has not been eating and drinking very well. She was here not too long ago with a similar process and had an esophageal stricture which was dilated. She was diagnosed with the H. pylori and she has been on treatment since then. Initial BUN and creatinine were 50 and 2.3, down to [address] scan was negative. Chest x- ray was stable. Head CT was negative. She did have some sinusitis. On the day of discharge, after hydration, sodium was up to 141, creatinine of 1.1, and she was felt stable for discharge. DISCHARGE MEDICATIONS: Amoxicillin 400 b.i.d., Biaxin 500 b.i.d., nadolol 80 daily, Zofran p.r.n., Protonix 40 b.i.d., and vitamin D2. DISCHARGE INSTRUCTIONS: She will need follow up in [address] Vieira. I have given her a prescription for a repeat basic. A 32 minute discharge, refer to Dr. Vieira. cc: Hunter Jones MD
== END 2019-05-01 19:57 | disposition home or self-care (01) | DRG 641 ==
LOC: P.ED 14:42 → SUATTDRO 19:48 → P.MEDSURG 19:48
PROVIDERS: ATTEND Internal Medicine

== ENCOUNTER 2019-05-12 11:03 | Inpatient (IN) ==
[2019-05-12] MEDS ORDERED: NS 1,000 ML IV ONE (11:29)
[2019-05-12 11:45] LABS: BASO# 0.04 X1000 (0.0-0.2); BASO% 0.4 % (0.0-0.8); EOS# 0.25 X1000 (0.0-0.7); EOS% 2.6 % (0.0-10.0); HEMATOCRIT 39.7 % (37.0-47.0); HEMOGLOBIN 14.3 g/dL (12.0-16.0); IMM GRAN# 0.04 X1000 (0.0-0.04); IMM GRAN% 0.4 % (0.0-0.5); LYMPH# 1.67 X1000 (1.2-3.4); LYMPH% 17.1 % (20.5-51.1); MCH 28.5 PG (27-31); MCV 79.1 FL (81-99); MONO# 0.82 X1000 (0.11-0.59); MONO% 8.4 % (1.7-9.3); MPV 9.8 FL (7.4-10.4); NEUT# 6.92 X1000 (1.4-6.5); NEUT% 71.1 % (42.2-75.2); PLT 585 X1000 (130-400); RBC 5.02 XMIL (4.2-5.4); RDW 12.6 % (11.5-14.5); WBC 9.74 X1000 (4.8-10.8)
--- NOTE | 2019-05-12 12:01 | Diag Imaging Result Doc PS360 ---
EXAM: FLAT/UPRIGHT ABD/1 VIEW CHEST HISTORY: nausia/vomiting TECHNIQUE: Flat and upright with chest, three views COMPARISON: 04/29/2019 FINDINGS: The lungs are well expanded. No cardiomegaly. No pneumonia. No free air beneath the diaphragm. No organomegaly. There is stool throughout the colon. No bowel obstruction. IMPRESSION: Constipation Electronically signed by Phil Haji 05/12/2019 11:58 AM
[2019-05-12 12:29] LABS: ALB/GLOB RATIO 1.4; ALBUMIN 4.8 g/dL (3.5-5.0); CALCIUM 9.7 mg/dL (8.8-10.2); CREATININE 1.7 mg/dL (0.5-0.9); POTASSIUM 3.9 mmol/L (3.5-5.1); TOTAL BILIRUBIN 0.85 mg/dL (0.20-1.00); TOTAL PROTEIN 8.2 g/dL (6.3-8.3)
[2019-05-12] MEDS ORDERED: ZOFRAN IV ONE (12:33)
--- NOTE | 2019-05-12 12:44 | PROVIDER DOCUMENTATION ---
This chart was entered by Ericka Canales Scribe, acting as scribe for Donte Pitts DO. HPI-Abdominal Pain/GI Problem - General Chief Complaint: N/V/D Stated Complaint: VOMITING DIARRHEA Time Seen by Provider: 05/12/19 11:15 Source: patient Allergies/Adverse Reactions: Patient Allergies Allergy/AdvReac Type Severity Reaction Status Date / Time levofloxacin [From Levaquin] Allergy NAUSEA/VOMI Verified 04/05/19 07:51 TING fluorouracil AdvReac VOMITING Verified 04/28/19 14:49 Home Medications: Home Medication List Medication Instructions Recorded Confirmed Last Taken Type Pantoprazole [Protonix] 40 mg PO BID #60 tab 04/10/19 05/12/19 Unknown Rx Ergocalciferol (Vitamin D2) 50,000 unit PO Q7D #10 cap 04/11/19 05/12/19 Unknown Rx [Vitamin D2] Nadolol 80 mg PO QAM 05/12/19 05/12/19 Unknown History Promethazine [Phenergan] 25 mg PO Q6H PRN PRN 05/12/19 05/12/19 Unknown History - History of Present Illness-ABD Nature of Presenting Problems: 78 yowf presents w/ to er w/cc dehydration, near syncope this am, diarrhea, nausea and dry heaves intermittent for some time. sts pt as been in and our of er and hospital for similar symptoms. pt was tx at [facility] er and transferred to [facility] er and was dx pt w/h.pylori, pt started antibitotics 04/28/19 and finished rx yesterday. pt has endoscopy w/Dr. Solis while in hospital and stretched esophagus. pt has poor appetite but drinks "a gallon of water a day," according to and has diarrhea every time using restroom. pt a&ox3 and nontoxic in appearance. pt is thin. Quality of Pain: reports: none Severity in ED: reports: mild Onset/Duration: reports: this morning Timing: reports: intermittent Review of Systems - Adult - REVIEW OF SYSTEMS - ADULT Constitutional: reports: see HPI, other (dehydration). denies: fever, fatique, night sweats Eyes: reports: no symptoms reported Ears, Nose, Mouth & Throat: reports: no symptoms reported Cardiovascular: reports: no symptoms reported Respiratory: reports: no symptoms reported Gastrointestinal: reports: no symptoms reported, diarrhea, difficulty swallowing , nausea, poor appetite, vomiting (dry heaves). denies: abdominal pain, hematemesis, constipation, rectal bleeding Genitourinary: reports: no symptoms reported Musculoskeletal: reports: no symptoms reported Integumentary: reports: no symptoms reported Neurological: reports: no symptoms reported, syncope (near this am). denies: dizziness/vertigo, headache/migraines, numbness, paresthesia Psychiatric: reports: no symptoms reported Endocrine: reports: no symptoms reported Hematologic/Lymphatic: reports: no symptoms reported Allergic/Immunologic: reports: no symptoms reported All Other Systems: Reviewed and Negative Past History - Adult - PAST MEDICAL HISTORY-ADULT Review of Records: reports: Old Records Reviewed, Nursing Assessment Review, Medications Reviewed, Social history reviewed & non-contributory. Major Childhood Illnesses: reports: denies history Cardiovascular: reports: HTN, hyperlipidemia Respiratory: reports: denies history Gastrointestinal: reports: other Obstetrical/Gynecological: reports: denies history Genitourinary: reports: kidney stones Musculoskeletal: reports: denies history Neurological: reports: denies history Endocrine/Immune: reports: denies history Other Conditions: reports: denies history Additional History: growth on rectum - PRIOR SURGERIES/PROCEDURES Surgical/Procedure History: reports: other - IMMUNIZATION STATUS Childhood Immunizations: See Nurse Assessment Flu Vaccine: See Nurse Assessment - FAMILY HISTORY Family History: reviewed, not pertinent - SOCIAL HISTORY Smoking: non-smoker Substance Use: none/never Physical Exam-General - PHYSICAL EXAM-ADULT Initial Vital Signs Reviewed: Yes - CONSTITUTIONAL General Appearance: appears well, alert, no apparent distress, thin. negative: lethargic, slow to respond, obtunded - EYES Eyes: PERRL/EOMI, pink conjunctivae - HEAD, EARS, NOSE, MOUTH & THROAT HENMT: normocephalic/atraumatic, moist mucous membranes, normal ENT inspection, TMs normal, pharynx normal - NECK Neck: non-tender, full range of motion, supple, normal inspection - RESPIRATORY Respiratory: chest non-tender, lungs clear, normal breath sounds - CARDIOVASCULAR Cardiovascular: normal peripheral pulses, regular rate, rhythm - GASTROINTESTINAL (ABDOMEN) Abdominal Exam: normal bowel sounds, non tender, soft, no organomegaly, no p ulsatile mass. negative: abnormal bowel sounds, distended, tenderness - LYMPHATIC Lymphatic: no adenopathy - MUSCULOSKELETAL Back Exam: normal inspection, no CVA tenderness, no vertebral tenderness Extremity: normal range of motion, non-tender, normal inspection Peripheral Pulses: radial (R): 2+, radial (L): 2+ - SKIN Integumentary: normal color, normal turgor, warm/dry - NEUROLOGIC Neurologic: sonar technician II-XII nml as tested, grossly normal, no motor/sensory deficits - PSYCHIATRIC Psych/Mental Status: normal mood/affect, normal thought content, normal thought process, oriented x 3 Progress - PLAN OF CARE/RESULTS Progress/Plan/Lab Results: Vital Signs - 8 hr 05/12/19 11:11 Temperature 97.5 F L Pulse Rate 69 Respiratory Rate 16 Blood Pressure 97/66 O2 Sat by Pulse Oximetry 97 Result Diagrams: 05/12/19 11:31 05/12/19 11:31 - EKG 1 Time of EKG reading by physician:: 11:40 EKG Read and Signed by:: Donte Pitts EKG Interpretation (*Must complete 3 of following elements*): Normal Rate: 64 Rhythm: NSR [place]: normal QRS: normal [place] Interval: normal ST Wave: normal - XRAY 1 XRAY Study: Abdomen Impression: Abnormal, See EMR Report ( EXAM: FLAT/UPRIGHT ABD/1 VIEW CHEST HISTORY: nausia/vomiting TECHNIQUE: Flat and upright with chest, three views COMPARISON: 04/29/2019 FINDINGS: The lungs are well expanded. No cardiomegaly. No pneumonia. No free air beneath the diaphragm. No organomegaly. There is stool throughout the colon. No bowel obstruction. IMPRESSION: Constipation Electronically signed by Phil Haji 05/12/2019 11:58 AM) Comparison with other Films: no changes - CONSULTS/PCP/HOSPITALIST Notification #1 *Consult/PCP/Hospitalist*: Tami Time Discussed: 12:41 Consult Disposition: Admit Departure - Departure Date of Disposition Decision: 05/12/19 Time of Disposition Decision: 12:43 DIAGNOSIS: Hyponatremia, Syncope and collapse Vomiting Qualifiers: Vomiting type: unspecified Vomiting Intractability: intractable Disposition: ADMITTED INPATIENT 09 Certified Medical Emergency: Emergent Condition: Stable Referrals and Follow-Ups: Edis Vieira MD [Primary Care Provider] - - Critical Care Note This patient required my direct & personal management of CC.: No Attestation - Physician/ JOEL Attestation Patient care was provided by Advanced Practice Provider:: No The physician spent face to face time with patient:: Yes Advanced Practice Provider documentation review:: Supervising physician onsite and consulted in the evaluation and care of this patient. The physician did have a face to face encounter with the patient. This chart was documented by the indicated scribe, (Ericka Canales Scribe) and accurately reflects the services I performed and decisions made by , Donte Pitts DO, as attested by the provider's signature.
[2019-05-12] MEDS ORDERED: ZOFRAN IV PRN (13:56)
[2019-05-12] MEDS ORDERED: TYLENOL PO PRN (13:56)
[2019-05-12] MEDS: NS 1,000 ML IV SCH (14:21)
--- NOTE | 2019-05-12 15:05 | HISTORY AND PHYSICAL ---
PRIMARY CARE PROVIDER: Dr. Edis Vieira. CHIEF COMPLAINT: Near-syncope, nausea, vomiting and diarrhea and dehydration, generalized weakness. HPI: Ms Chahal is a 78-year-old female who carries a past medical history of hypertension, dysphagia with history of esophageal stenosis status post dilatation and EGD, H pylori gastritis she just finished treatment for yesterday and a known rectal tumor has been evaluated by both GI and General Surgery. She is supposed to follow up with surgery outpatient for anal resection. Per patient report she has just not really had an appetite now ongoing for several weeks. She has had ongoing diarrhea for 2 years and is not really taking anything in by mouth. She will do yogurt, applesauces, puddings, Boost shakes and scrambled eggs. Her intake is very limited. She is unable to swallow pills. Workup in the ED showed severe hyponatremia at 116, dehydration and her abdominal film showed constipation. We will admit her to the ICU, continue with IV hydration, serial sodium checks, and will consult Dr. Milton if need be . PAST MEDICAL HISTORY: 1. Hypertension. 2. Dysphagia with history of esophageal stenosis status post dilatation. 3. H pylori, patient finished treatment yesterday. 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 SOCIAL HISTORY: She is . She has supportive family at the bedside. No tobacco, alcohol or illicit drug use. CURRENT MEDICATIONS: 1. Nadolol 80 mg p.o. q.a.m. 2. Phenergan 25 mg p.o. q.6 hours p.r.n. 3. Protonix 40 mg p.o. b.i.d. 4. Vitamin D2 50,000 units p.o. every 7 days. REVIEW OF SYSTEMS: Twelve-point review of systems completely negative except for those mentioned in HPI. PHYSICAL EXAM: VITAL SIGNS: Temperature 97.5 degrees, heart rate 69, respirations 16, blood pressure 97/66, O2 was 97% on room air. GENERAL: Ms. Chahal is a frail-appearing 78-year-old female who is lying on the bed in no acute distress. HEENT: Atraumatic, normocephalic. PERRL. Mucous membranes dry. NECK: Supple, trachea midline. CARDIOVASCULAR: S1, S2 appreciated. No murmurs, gallops, rubs noted. RESPIRATORY: Lung sounds clear bilaterally. GI: Was somewhat soft, nontender, nondistended. Normal bowel sounds. NEUROLOGIC: No focal deficits noted . MUSCULOSKELETAL: Patient was able to help herself up out of bed. I did assist walking her to the restroom without any issues. LABORATORY DATA: White count 9, hemoglobin and hematocrit 14 and 39, platelet count is 585,000. Sodium 116, potassium 3.9, BUN 49, creatinine 1.7, blood glucose is 182, AST 25, ALT 13, alkaline phos 155, troponin less than 0.010. ASSESSMENT AND PLAN: 1. Severe hyponatremia secondary to dehydration from vomiting and diarrhea. This has been ongoing. We will check hyponatremia workup. We will consult Dr. Milton if necessary. She has received 1 normal saline bolus. We will continue to gently hydrate her overnight in the ICU. We will check sodium levels every 4 hours and adjust fluids as necessary. 2. Dehydration. Continue IV fluids. 3. Hypertension. Will hold her nadolol for now. 4. Dysphagia with history of esophageal stenosis with dilatation with EGD. She states she has really not had an appetite and she is unable to swallow pills or meats. She normally eats just soft consistency food and if she does have take a pill she crushes them up in applesauce. 5. Helicobacter pylori. She just finished treatment yesterday. 6. Known rectal mass is going to be followed by Dr. Adams. 7. Constipation. After her sodium starts to improve we will place her on some stool softeners. She is unable to take any enemas or suppositories secondary to this rectal mass. 8. Further recommendations to follow physician evaluation, laboratory and diagnostic data. Dictated by CARA Allen for Kulwant Oreilly MD cc: Edis Vieira MD [facility]
--- NOTE | 2019-05-12 15:06 | HISTORY AND PHYSICAL ---
ADDENDUM: The patient seen and examined by me [id number]. All the laboratory, vital signs and images were reviewed. The patient presented to the emergency department complaining of nausea, vomiting and diarrhea and near syncope this morning. As per the patient, she has been drinking well but not eating but for the past 3 days, she has not been able to eat, drink, and also she has been having diarrhea. Interestingly, this patient's abdomen x-ray showed constipation. On the other hand, she was recently discharged on 05/01/2019 due to syncope, hypertension, nausea, vomiting, dehydration, and acute kidney injury. She is coming with CVA. She has come in hyponatremic. She will receive IV fluids. She has an acute kidney injury that hopefully will resolve with the IV fluids as well. She is hypochloremic. On the other hand, she does have a mass that has been evaluated by Surgery Department, Dr. Adams. Once she is more stable we will go ahead and consult Surgery Department for the possibility of removing this rectal mass. My physical exam showed a chronically ill looking patient. She was not complaining of nausea vomiting at the moment of my evaluation because she received nausea medication and as per the patient, she feels better. She still looks dehydrated, though. She has generalized weakness, protein calorie malnutrition. Her rectal mass has red color and is not uniform, but does not have any signs of ischemia or a lot of signs of vascularization. Surgery Department believes that probably this is related to a condyloma. As per the patient, she had this kind of mass before and it has been removed before around 9 years ago, but came back. I will keep this patient in the ICU. We will check the sodium level multiple times during the day and night. She has been placed on a clear liquid diet. She is completely alert and oriented x3. I agree with the rest of the nurse practitioner's assessment and plan. cc: Kulwant Oreilly MD
--- NOTE | 2019-05-12 15:13 | EKG Report ---
Test Performed on : 05/12/2019 11:34:13 AM Test Reason : near syncope Blood Pressure : / mmHG Vent. Rate : 064 BPM Atrial Rate : 064 BPM P-R Int : 168 ms QRS Dur : 080 ms QT Int : 458 ms P-R-T Axes : 057 022 041 degrees QTc Int : 472 ms Normal sinus rhythm. Normal ECG When compared with ECG of 28-APR-2019 15:25, (Unconfirmed) Vent. rate has decreased BY 34 BPM Unconfirmed Result
[2019-05-12 15:40] LABS: URINE SOURCE CLEAN CATCH
[2019-05-12 15:45] LABS: BILIRUBIN URINE NEGATIVE (NEGATIVE); BLOOD URINE NEGATIVE (NEGATIVE); COLOR YELLOW; GLUCOSE URINE NEGATIVE (NEGATIVE); KETONE URINE NEGATIVE (NEGATIVE); LEUKOCYTES URINE NEGATIVE (NEGATIVE); NITRITE URINE NEGATIVE (NEGATIVE); PROTEIN URINE NEGATIVE (NEGATIVE); TURBIDITY URINE CLEAR (CLEAR); UR EPITHELIAL CELLS <10 /HPF (<10); URINE BACTERIA NEGATIVE /HPF; URINE RBC <10 /HPF (<10); URINE WBC <10 /HPF (<10); UROBILINOGEN URINE NORMAL (NORMAL)
[2019-05-13] MEDS: NS 1,000 ML IV SCH ×3 (05:44→16:11)
[2019-05-13 06:48] LABS: BASO# 0.04 X1000 (0.0-0.2); BASO% 0.5 % (0.0-0.8); EOS# 0.16 X1000 (0.0-0.7); EOS% 1.8 % (0.0-10.0); HEMOGLOBIN 11.5 g/dL (12.0-16.0); IMM GRAN# 0.03 X1000 (0.0-0.04); IMM GRAN% 0.3 % (0.0-0.5); LYMPH# 1.94 X1000 (1.2-3.4); LYMPH% 22.1 % (20.5-51.1); MCH 28.4 PG (27-31); MCHC 34.8 g/dL (33-37); MCV 81.5 FL (81-99); MONO# 0.94 X1000 (0.11-0.59); MONO% 10.7 % (1.7-9.3); MPV 9.4 FL (7.4-10.4); NEUT# 5.68 X1000 (1.4-6.5); NEUT% 64.6 % (42.2-75.2); PLT 407 X1000 (130-400); RBC 4.05 XMIL (4.2-5.4); RDW 12.8 % (11.5-14.5); WBC 8.79 X1000 (4.8-10.8)
[2019-05-13 07:09] LABS: ALB/GLOB RATIO 1.2; ALBUMIN 3.5 g/dL (3.5-5.0); CALCIUM 8.8 mg/dL (8.8-10.2); CREATININE 1.2 mg/dL (0.5-0.9); MAGNESIUM 2.7 mg/dL (1.5-2.7); TOTAL BILIRUBIN 0.52 mg/dL (0.20-1.00); TOTAL PROTEIN 6.4 g/dL (6.3-8.3)
[2019-05-13] MEDS ORDERED: KLOR-CON PO ONE (07:14)
--- NOTE | 2019-05-13 07:15 | EKG Report ---
Test Performed on : 05/13/2019 06:35:13 AM Test Reason : fu Blood Pressure : / mmHG Vent. Rate : 060 BPM Atrial Rate : 060 BPM P-R Int : 166 ms QRS Dur : 088 ms QT Int : 456 ms P-R-T Axes : 059 037 050 degrees QTc Int : 456 ms Normal sinus rhythm. Normal ECG When compared with ECG of 12-MAY-2019 11:34, (Unconfirmed) No significant change was found Confirmed by Savanna DRISCOLL, Nima Desouza ([id number]) on 05/13/2019 10:52:22 AM
--- NOTE | 2019-05-13 08:34 | PROGRESS NOTE ---
DATE: 05/13/2019 SUBJECTIVE: This patient is feeling better. She is hungry, she is making good urine, her sodium level has been improving slowly, potassium is low and I will replace it. Creatinine decreased from 1.7 to 1.2. Urine osmolarity and serum osmolarity are both low. Probably, this patient will benefit from fluid restriction but her blood pressure has been low and she has been getting normal saline. I have requested an evaluation by nephrology department. OBJECTIVE: Vital Signs: Temperature 97.8 degrees, pulse 60, respiratory rate 12, blood pressure 116/46, oxygen saturation 97% on room air. HEENT: Head normocephalic. No trauma. PERRLA. Neck: Supple. No JVD. No masses. Central trachea. Chest: Clear to auscultation. No wheezing. No rales. Abdomen: Soft. Some discomfort to palpation at the level of the epigastric area and right upper quadrant. Extremities: No edema, no clubbing, no cyanosis. Decreased muscle mass. Neurological Examination: This patient is alert and oriented x3. No focal deficits. Genital Area: I evaluated her rectal area and she does have a mass. It is around 5 to 6 cm long and covers the anal area. Coloration is red and I do not see any signs of necrosis. Laboratory: WBC 8.7, hemoglobin 11.5, hematocrit 33, platelets 407,000. Sodium 128, potassium 3, chloride 91, bicarbonate 21, BUN 42, creatinine 1.2, glucose 97, calcium 8.8, magnesium 2.7. AST 12, ALT 9, alkaline phosphatase 116. ASSESSMENT AND PLAN: 1. Severe hyponatremia secondary to dehydration from vomiting and diarrhea. She is not complaining of nausea and vomiting at this moment, and she is hungry. I will advance her diet a little bit. Abdominal x-ray showed constipation. Her sodium level is getting better. I will get nephrology department to evaluate this patient. 2. Dehydration, resolved. She seems to be better. 3. Acute kidney injury. This is better. Continue to monitor. Continue intravenous fluids. 4. Hypertension. Actually, this patient's blood pressure has been on the low side. We are holding her home medications, nadolol. 5. Dysphagia with a history of esophageal stenosis and constipation. It looks like she has a scheduled esophagogastroduodenoscopy to be done next Tuesday. I will contact the gastroenterology department tomorrow to evaluate this patient. 6. Constipation. Tomorrow, we will get gastroenterology department to evaluate this patient. The problem is that she also has a rectal mass and she cannot have a regular bowel movement, per the patient. 7. Helicobacter pylori. She finished treatment 2 days ago. 8. Rectal mass. This has been followed by Dr. Adams during the previous hospitalization and the plan was to resect this as an outpatient but I will get surgery department tomorrow to evaluate this patient to see if we can do it during this hospitalization since this patient is constipated. 9. Constipation. As above. cc: Kulwant Oreilly MD
--- NOTE | 2019-05-13 11:22 | NEPHROLOGY CONSULTATION ---
DATE: 05/13/2019 REASON FOR ADMISSION: Hyponatremia, near-syncope, nausea, vomiting, diarrhea, dehydration. CONSULTING PHYSICIAN: Dr. Crawley. REASON FOR CONSULTATION: Assist with management of hyponatremia. HISTORY OF PRESENT ILLNESS: This is a 78-year-old female with a past medical history of dysphagia and esophageal stenosis, who has chronic nausea, vomiting, diarrhea. This had gotten worse over the last several weeks, and she had become dehydrated. She came into the emergency room. She was found to have significant constipation and severe hyponatremia with a sodium of 116. She had some fluid resuscitation with gentle hydration, was moved to the unit, has had her sodium monitored closely, and has slowly risen over the last 12 hours up to 128. This morning, she is sitting up. She is awake and alert. She is eating breakfast without difficulty. The patient states that she has had episodes of low blood sodium in the past whenever she would become dehydrated from nausea, vomiting, and diarrhea. PAST MEDICAL HISTORY: Hypertension, dysphagia, esophageal stenosis, Helicobacter pylori, history of rectal mass condyloma. PAST SURGICAL HISTORY: She has had esophageal dilation, condylomata removal. ALLERGIES: Levofloxacin fluorouracil. HOME MEDICATIONS: Nadolol, Phenergan, Protonix, vitamin D2. FAMILY HISTORY: Noncontributory. SOCIAL HISTORY: No ETOH, tobacco, or illicit drug use. She is . REVIEW OF SYSTEMS: Nausea, vomiting, diarrhea, generalized weakness. PHYSICAL EXAMINATION: Vital Signs: Temperature 97.8 degrees, pulse 60, respiratory rate 12, blood pressure 116/46. Intake 1.4 L, output 1.1 L voided, plus 2 liquid stools noted. General: This is a chronically ill-appearing, thin, elderly female, resting in bed. She is awake and alert. She is in no acute distress. HEENT: Normocephalic, atraumatic. Her oral mucosa is dry. RADHA. Neck: Supple without JVD. Cardiovascular: Regular rate and rhythm. No murmur. Pulmonary: She is clear bilaterally. Equal excursion. Abdomen: Positive bowel sounds. Nontender. : Voiding. Extremities: No clubbing, cyanosis. Somewhat wasted. Integumentary: Skin warm and dry, pale. Neurologic: Grossly nonfocal. Psychiatric: She is appropriate with history and exam. LABORATORY DATA: WBC of 8.7, hemoglobin 11.3. Sodium 128, potassium 3.0, creatinine 1.2. Her urine was bland. Her urine osmolality was 235, and she had a urine random sodium of less than 10. ASSESSMENT AND PLAN: 1. Hyponatremia secondary to significant fluid loss from vomiting and diarrhea. Sodium level is improving. Will not make changes to her current treatment plan, aside from we will restrict her free water intake to 2 liters, and request that at least some of this is electrolyte- containing fluids. The patient has had no issues at all with her rise in her sodium. Will continue 4-hour monitoring. 2. Acute kidney injury, likely secondary to decreased intravascular fluid volume. Her creatinine on admission was 1.7. Today, she is 1.2. Dictated by CARA Tolentino for Herbert Milton MD cc: Herbert Milton MD
[2019-05-14] MEDS: NS 1,000 ML IV SCH ×4 (00:04→20:14)
[2019-05-14 06:26] LABS: BASO# 0.06 X1000 (0.0-0.2); BASO% 0.8 % (0.0-0.8); EOS# 0.26 X1000 (0.0-0.7); EOS% 3.6 % (0.0-10.0); HEMATOCRIT 30.7 % (37.0-47.0); HEMOGLOBIN 10.3 g/dL (12.0-16.0); IMM GRAN# 0.02 X1000 (0.0-0.04); IMM GRAN% 0.3 % (0.0-0.5); LYMPH# 2.15 X1000 (1.2-3.4); LYMPH% 29.5 % (20.5-51.1); MCH 28.5 PG (27-31); MCHC 33.6 g/dL (33-37); MCV 84.8 FL (81-99); MONO# 0.72 X1000 (0.11-0.59); MONO% 9.9 % (1.7-9.3); MPV 10.2 FL (7.4-10.4); NEUT# 4.07 X1000 (1.4-6.5); NEUT% 55.9 % (42.2-75.2); PLT 348 X1000 (130-400); RBC 3.62 XMIL (4.2-5.4); RDW 13.5 % (11.5-14.5); WBC 7.28 X1000 (4.8-10.8)
[2019-05-14 06:54] LABS: ALB/GLOB RATIO 1.2; ALBUMIN 3.2 g/dL (3.5-5.0); CALCIUM 8.6 mg/dL (8.8-10.2); CREATININE 0.9 mg/dL (0.5-0.9); MAGNESIUM 2.4 mg/dL (1.5-2.7); PHOSPHORUS 2.8 mg/dL (2.7-4.5); POTASSIUM 3.9 mmol/L (3.5-5.1); TOTAL BILIRUBIN 0.3 mg/dL (0.20-1.00); TOTAL PROTEIN 5.8 g/dL (6.3-8.3)
--- NOTE | 2019-05-14 07:59 | PROGRESS NOTE ---
DATE: 05/14/2019 SUBJECTIVE: This patient is feeling better. No acute events overnight. Her sodium level normalized. I will request an evaluation by surgery department and gastroenterology department. She has been evaluated before by them. She does have a rectal mass and she is constipated. She cannot have a normal bowel movement because of the mass. She has been placed on a liquid diet. She has been having esophageal dilatation before and apparently she was scheduled to get a new one this week. OBJECTIVE: Vital Signs: Temperature 97.2 degrees, pulse 64, respiratory rate 17, blood pressure 108/44, oxygen saturation 97% on room air. HEENT: Head normocephalic. No trauma. PERRLA. Neck: Supple. No JVD. No masses. Central trachea. Chest: Clear to auscultation. No wheezing. No rales. Abdomen: Soft. Some discomfort to palpation at the level of the epigastric and right upper quadrant. Extremities: No edema, no clubbing, no cyanosis. Decreased muscle mass. Neurological Examination: The patient is alert. She is oriented x3. No focal deficits. Inguinal Area: She has a rectal mass around 5 to 6 cm long that covers the anal area. It is red in color and soft. I do not see any signs of necrosis. Laboratory: WBCs 7.2, hemoglobin 10.3, hematocrit 30.7, and platelets 348,000. Sodium 137, potassium 3.9, chloride 106, bicarbonate 20, BUN 22, creatinine 0.9, glucose 87, calcium 8.6, phosphorus 2.8, magnesium 2.4. AST 11, ALT 7, alkaline phosphatase 100, albumin 3.2. ASSESSMENT AND PLAN: 1. Severe hyponatremia secondary to dehydration, vomiting, and diarrhea, resolved. I will decrease the rate of the intravenous fluids from 100 to 50 and I will continue with a liquid diet since this patient has a rectal mass. Abdomen x-ray showed constipation. I appreciate nephrology department recommendations. 2. Dehydration, resolved. 3. Acute kidney injury, resolved. 4. Hypertension. Actually, this patient's blood pressure has been on the low side. We are going to continue holding her home medications, nadolol. 5. Dysphagia with a history of esophageal stenosis. It looks like she has been scheduled for an esophagogastroduodenoscopy to be done this week as an outpatient. I have requested an evaluation by the gastroenterology department today to evaluate the possibility of doing that procedure during this hospitalization since this patient came with nausea and vomiting. On the other hand, this patient has a rectal mass and she is constipated. I do believe she cannot have a bowel movement because of the mass and I believe it has to be fixed. 6. Constipation, as above. I have requested an evaluation by both gastroenterology department and surgery department. Like I mentioned before, she has a rectal mass and she is not having regular bowel movements probably because of this. X-ray showed constipation. I will wait for recommendations. 7. Helicobacter pylori. She finished treatment 3 days ago. Gastroenterology has been consulted. 8. Rectal mass. This has been evaluated before by Dr. Adams, who has been consulted. She is constipated and she is not having a regular bowel movement. 9. The patient is doing much better. She seems to be stable. Kidney function resolved as well as the hyponatremia. She is tolerating oral intake. Vital signs are stable. I will transfer this patient to the floor. cc: Kulwant Oreilly MD
[2019-05-14] MEDS: PROTONIX PO SCH ×2 (08:28→20:13)
--- NOTE | 2019-05-14 10:02 | GENERAL SURGERY CONSULTATION ---
DATE: 05/14/2019 REQUESTING PHYSICIAN: Dr. Crawley. REASON FOR CONSULT: Rectal mass. HISTORY OF PRESENT ILLNESS: A 78-year-old female, known to me, who has been in the hospital several times since I saw her last. 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 She has had on and off issues with diarrhea and constipation. We had previously discussed with her about potential for doing a transanal excision of this area, but she has not been able to follow up with me in the office secondary to multiple readmissions to the hospital for various reasons and dehydration. She was back in the hospital for a similar issue and I was asked to weigh an opinion. PAST MEDICAL HISTORY: 1. Hypertension. 2. Dysphagia. 3. History of H pylori. 4. Known rectal mass. PAST SURGICAL HISTORY: Previous tumor resection. FAMILY HISTORY: Positive for congestive heart failure. SOCIAL HISTORY: Lives in [place]. ALLERGIES: 1. Levaquin. 2. Fluorouracil. HOME MEDICATIONS: Reviewed. REVIEW OF SYSTEMS: A full 14 systems reviewed and negative except as specified in HPI. PHYSICAL EXAMINATION: Vital Signs: Patient is currently afebrile. Her vital signs are stable. General: No acute distress, alert, interactive female, looks stated age. HEENT: Normocephalic, atraumatic. Pupils equal, round, reactive to light. Mucous membranes moist. Oropharynx benign. Neck: Supple. Trachea midline. Cardiovascular: Regular rate and rhythm. Lungs: Grossly clear. Abdomen: Soft, nontender, nondistended. Rectal: Protruding mass noted, looks friable. Extremities: Moves all extremities. Neurologic: Grossly intact. Skin: No signs of jaundice. Vascular: All extremities perfused. LABORATORY DATA: Reviewed. Previous CT scans reviewed, most recent one being on 04/28/2019. ASSESSMENT AND PLAN: A 78-year-old female with rectal mass. Rectal mass: At this time, the extent of it is difficult to ascertain. She had a CT scan that did not have IV contrast but had barium from a previous study. It looks like the mass may go up more proximally in the rectum, which may be prohibitive to do a transanal excision. Sounds like she is going to undergo an EGD tomorrow. May need to reconsider repeat CT scan with p.o. and IV contrast to evaluate this rectal mass and extent of it better. I did not see any obvious lymphadenopathy in the retroperitoneal space or the inguinal region, but maybe more imaging would be beneficial to know if this is actually something I could resect transanally. If it is extensive, she may need something like an abdominoperineal resection. At this time, we will continue to follow with you. I appreciate the consult. cc: Hardeep Adams MD
--- NOTE | 2019-05-14 12:56 | Diag Imaging Result Doc PS360 ---
EXAM: CT ABD/PELVIS W/PO AND IV CON 05/14/2019 HISTORY: evaluate extent of rectal mass TECHNIQUE: This exam was performed using automated exposure control, adjustment of mA or kV according to patient size, and/or use of iterative reconstruction technique. COMMENT: The visualized portion of the lung bases have not changed significantly since 04/28/2019. There is a small hiatal hernia. There are atherosclerotic calcifications and noncalcified plaque present in the abdominal aorta. There is slight dilatation of the infrarenal abdominal aorta to a maximum AP diameter of 1.6 cm. This has not changed significantly since the previous study. There are no apparent gallstones. The mesenteric and renal arteries are patent. The possibility of ostial stenosis of the right renal artery is suggested. The kidneys are without evidence of hydronephrosis or mass. There is no evidence of significant adenopathy. There is no evidence of bowel obstruction. The liver, spleen, adrenal glands, and pancreas are unremarkable. Pelvis: The urinary bladder is somewhat distended. There is no evidence of free pelvic fluid. There is fluid in the rectum which is actually quite helpful demonstrating a lobulated mass anterolaterally on the left measuring 4.6 x 2.8 x 2 cm proximally, which extends to the anus circumferentially distally. There is a very nodular contour in the distal rectum. There is generalized osteopenia. No acute bony abnormalities are demonstrated. IMPRESSION: Anorectal mass as described. Abdominal aortic aneurysm. 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 Electronically signed by Tony Phelps 05/14/2019 12:53 PM
--- NOTE | 2019-05-14 13:37 | GASTROENTEROLOGY CONSULTATION ---
DATE: 05/14/2019 REASON FOR CONSULTATION: Esophageal stricture, constipation, and rectal mass. HISTORY OF PRESENT ILLNESS: Ms. Chahal is a 78-year-old, female with the history of hypertension, constipation, and diarrhea. She recently had EGD done on 04/09/2019, findings were Schatzki ring in proximal and distal esophagus, gastritis and stricture was dilated. Biopsy was taken and it showed H. pylori and she finished her antibiotics treatment 3 days back. She was schedule for a repeat EGD as an outpatient sometime this week but is now in the hospital. On Tuesday when she was moving around the house she felt dizzy, could not walk and passed out. She was brought to the hospital and her sodium levels was 129.. She had nausea, was gagging but denied any vomiting, or flu like symptoms. She mentioned that she has been having ongoing diarrhea and constipation for the past 2 years due to the rectal mass. Her rectal mass was removed in 2011 at [facility], but it has come back again causing her to have constipation, diarrhea and abdominal bloating. PAST MEDICAL HISTORY: Hypertension, dysphagia, esophageal stenosis, H. pylori, rectal mass, constipation, and diarrhea. ALLERGIES: Levofloxacin and fluorouracil. HOME MEDICATIONS: Protonix 40 mg twice a day, vitamin D2 50,000 units once every 7 days, nadolol 80 mg daily, Phenergan 25 mg every 6 hours as needed for nausea. SOCIAL HISTORY: She is and has 4 kids. She has denied any alcohol, smoking, or illicit drugs. FAMILY HISTORY: Her mother had diabetes, no significant GI malignancy. SURGERIES : Rectal mass removed in 2011 REVIEW OF SYSTEMS: As per HPI, otherwise 12 point system is negative. PHYSICAL EXAMINATION: Vital Signs: Temperature is 98.1 degrees, pulse is 58, respirations 19, blood pressure is 135/49, oxygen saturation is 100% on room air. Her weight is 104 pounds. BMI is 17.7 kg/m2. General: She is alert, oriented x3, and in no acute distress. HEENT: Pale conjunctivae. No icterus. PERRL. Neck: Supple. Cardiovascular: Regular rate and rhythm. No murmurs, rubs, or gallops heard on auscultation. Respirations: Lungs clear to auscultation. Abdomen: Soft, nontender, distended. Active bowel sounds heard in all 4 quadrants. Extremities: No clubbing, cyanosis, or edema. Pedal pulses 2+ present bilaterally. Neurological: Alert, oriented x3. Nonfocal. Cranial nerves 2-12 grossly intact. LABS: WBCs 7.28, RBCs of 3.62, hemoglobin is 10.3, hematocrit is 30.7, platelet count of 348,000. Sodium is 137, potassium 3.9, chloride 106, carbon dioxide 20, anion gap is 11, BUN is 22, creatinine is 0.9, glucose is 87, calcium is 8.6, phosphorus is 2.8, magnesium is 2.4. Total bilirubin is 0.30, AST is 11, ALT 7, alkaline phosphatase is 100, albumin is 3.2. Urinalysis was negative. Abdominal x-ray on 05/12/2019 showed constipation. IMPRESSION: 1. Constipation. 2. Diarrhea. 3. Nausea. 4. Vomiting. 5. Abdominal pain. 6. Dysphagia. 7. Rectal mass. 8. Dehydration PLAN: The plan is to do an EGD and a flexible sigmoidoscopy tomorrow. The patient is on GI prophylaxis with Protonix 40 mg twice a day. She is receiving IV fluids, normal saline at 75 m ls for dehydration. Her hemoglobin and hematocrit are 10.3 and 30.7. Her sodium has been trending upwards. During admission, it was 129. Today, it is 137. Discussed the risks, benefits, indications and alternatives of the procedure, patient and family acknowledges understanding of the procedure. We will continue to follow the plan of care per primary care team. Further plan of care will be discussed based on the EGD and flexible sigmoidoscopy findings. This plan was discussed with Dr. Solis. Thank you for you consult. Please call us for any further questions or concerns. Dictated by CARA More for Robert Solis MD cc: Robert Solis MD I have seen and examined the patient myself and I agree with the above plan of care. Discussed the above with the patient and family and all questions were answered. Please call us with any further questions. [facility]
[2019-05-14] MEDS ORDERED: GOLYTELY PO ONE (18:22)
--- NOTE | 2019-05-14 21:03 | NEPHROLOGY PROGRESS NOTE ---
DATE: 05/14/2019 Subjective: patient lying in bed awake watching television. Denies shortness of breath, chest pain, dizziness, weakness, or change in appetite. Objective: vitals. Temperature 98.1, pulse 60, respirations 19, blood pressure 122/52, 02 sat 99% on room air. General: chronically ill elderly white female lying in bed in no acute distress. Skin: pale, warm, dry. HEENT: pupils are equal and round reactive, conjunctiva are pink, mucous membranes dry. Neck: 6cm JVD noted. Cardiovascular: S1, S2. Regular rate and rhythm, no murmur or gallop noted. Lungs: clear bilaterally with equal excursion. Abdomen: soft, nontender, nondistended, bowel sounds active. Extremities: no edema, clubbing, or cyanosis. : none observed. Neurologic: alert, oriented to person, place, and time. Labs: intake 3360/ output 1875. WBC 7.28, RBC 3.62, hemoglobin 10.3, hematocrit 30.7, platelet count 348, sodium 137, potassium 3.9, chloride 106, carbon dioxide 20, anion gap 11, BUN 22, creatinine 0.9, calcium 8.6, total protein 5.8, albumin 3.2. Impression: Hypovolemic Hyponatremia secondary to significant fluid volume lost from vomiting and diarrhea. Resolved. Sodium level today 137. We will not make changes to our current treatment plan. Continues on to liter fluid restrictions with electrolyte fluid replacement. OK to use contrast. Acute kidney injury likely acute tubular necrosis secondary to hypovolemia. Resolved. Her creatinine is at 0.9. We will sign off. ricco cc: MD KENNEDY Echols
[2019-05-15 04:58] LABS: BASO# 0.09 X1000 (0.0-0.2); BASO% 0.9 % (0.0-0.8); HEMATOCRIT 31.1 % (37.0-47.0); HEMOGLOBIN 10.2 g/dL (12.0-16.0); IMM GRAN# 0.04 X1000 (0.0-0.04); IMM GRAN% 0.4 % (0.0-0.5); LYMPH% 22.9 % (20.5-51.1); MCH 28.3 PG (27-31); MCHC 32.8 g/dL (33-37); MCV 86.4 FL (81-99); MONO# 0.95 X1000 (0.11-0.59); MONO% 9.5 % (1.7-9.3); MPV 9.7 FL (7.4-10.4); NEUT# 6.26 X1000 (1.4-6.5); NEUT% 62.3 % (42.2-75.2); PLT 347 X1000 (130-400); RDW 13.8 % (11.5-14.5); WBC 10.04 X1000 (4.8-10.8)
[2019-05-15 05:22] LABS: AGAP 10; BUN 10 mg/dL (8-22); CALCIUM 8.8 mg/dL (8.8-10.2); CHLORIDE 105 mmol/L (98-107); COSMO 270; CREATININE 0.8 mg/dL (0.5-0.9); ESTIMATED GFR > 60; GLUCOSE 81 mg/dL (70-104); POTASSIUM 4.4 mmol/L (3.5-5.1); SODIUM 136 mmol/L (136-145); TCO2 21 mmol/L (25-35)
[2019-05-15] MEDS ORDERED: DIPRIVAN 1% ONE (07:04)
[2019-05-15] MEDS ORDERED: FENTANYL ONE (07:06)
--- NOTE | 2019-05-15 07:55 | GENERAL SURGERY PROGRESS NOTE ---
DATE: 05/15/2019 SUBJECTIVE: Patient seems to be doing okay. She was transferred out of the ICU. CT scan report reviewed. It seems as though this mass extends further beyond then realized and starts up in the rectum. There is plan for an EGD and flex sig today. OBJECTIVE: Vital Signs: Patient is currently afebrile her vital signs stable. General: General exam: No acute distress. HEENT: Normocephalic, atraumatic. Pupils equal, round, reactive to light. Mucous membranes moist. Oropharynx benign. Neck: Supple, trachea midline. Cardiovascular: Regular rate and rhythm. Lungs: Grossly clear. Abdomen: Soft, nontender, nondistended. Rectal: Unchanged. Extremities: Moves all extremities. Neurologic: Grossly intact. Skin: No signs of jaundice. Vascular: All extremities perfused. LABORATORY: Reviewed from this morning. ASSESSMENT AND PLAN: 78-year-old female with a anal/rectal mass: 1. Anal/rectal mass. At this time, I agree with the esophagogastroduodenoscopy and flexible sigmoidoscopy today. I would like to get a tissue sample of the area to see what exactly we are dealing with this area does extend up into the rectum, which may ray may make transanal excision impossible. 2. We will make further recommendations once we have the pathology back. Otherwise, continue supportive care. cc: Hardeep Adams MD
[2019-05-15] MEDS: PROTONIX PO SCH ×2 (08:46→21:20)
[2019-05-15] MEDS ORDERED: EPHEDRINE ONE (10:16)
--- NOTE | 2019-05-15 10:17 | ENDOSCOPY OPERATIVE NOTE ---
[facility] ENDOSCOPY OPERATIVE NOTE , PATIENT: Ericka Chahal ADMISSION DATE: 05/15/2019 [id number] [facility] 1940 [id number] EGD PROCEDURE REPORT PROCEDURE DATE: 05/15/2019 SURGEON: Baltazar Castellon MD STATUS: inpatient POLLUTION CONTROL CHEMIST: PREOPERATIVE DIAGNOSIS: The patient is a 78 yr old female here for an EGD due to dysphagia, pharynge al-esophageal and anemia. PROCEDURE PERFORMED: EGD w/ biopsy MEDICATIONS: Per Anesthesia TOPICAL ANESTHETIC: none CONSENT: The patient understands the risks and benefits of the procedure and understands that these r isks include, but are not limited to: sedation, allergic reaction, infection, perforation and/or bleeding. Alternative means of evaluation and treatment include, among others: physical exam, x-rays, and/or surgical intervention. The patient elects to proceed with this endoscopic procedure. HISORY AND PHYSICAL: 05/15/2019 DESCRIPTION OF PROCEDURE: During intra-op preparation period all mechanical and medical equipment was checked for proper function. Hand hygiene and appropriate measures for infection prevention was taken. After the risks, benefits and alternatives of the procedure were thoroughly explained, Informed consent was verified, confirmed and timeout was successfully executed by the treatment team. The patient was anesthetized with topical anesthesia and the WX03-[id number] ([id number]) and [id number] ([id number]) endoscope was introduced through the mouth and advanced to the seco nd portion of the duodenum. Retroflexion was performed in the stomach and revealed no abnormalities. The gastroscope was then slowly withdrawn and removed. ESOPHAGUS: The z-line was noted at 38cm from the incisors. The z-line appeared normal. The mucosa of the esophagus appeared normal. A biopsy was performed using cold forceps in the mid esophagus. Sample sent for ks stology. Sample obtained for evaluation of eosinophilic esophagitis. STOMACH: Mild gastropathy was found in the gastric body. DUODENUM: The duodenum was normal. SPECIMENS REMOVED: Yes ADVERSE EVENTS: There were no complications. POSTOPERATIVE DIAGNOSIS: 1. The z-line was noted at 38cm from the incisors 2. The mucosa of the esophagus appeared normal; a biopsy was performed 3. Gastropathy was found in the gastric body 4. The duodenum was normal RECOMMENDATIONS: 1. Await biopsy results 2. Continue to colonoscopy procedure REPEAT EXAM: Baltazar Castellon MD eSigned: Baltazar Castellon MD 05/15/2019 10:16 AM cc: PATIENT NAME: Ericka Chahal MR#: [id number]
--- NOTE | 2019-05-15 10:25 | ENDOSCOPY OPERATIVE NOTE ---
[facility] ENDOSCOPY OPERATIVE NOTE , PATIENT: Ericka Chahal ADM DATE: 05/15/2019 MR #: [id number] [facility] 1940 [id number] FLEXIBLE SIGMOIDOSCOPY PROCEDURE REPORT PROCEDURE DATE: 05/15/2019 SURGEON: Baltazar Castellon MD STATUS: inpatient DIRECTOR OF CAREER RESOURCES: PREOPERATIVE DIAGNOSIS: The patient is a 78 yr old female here for a colonoscopy due to rectal mass on imaging. PROCEDURE PERFORMED: Sigmoidoscopy with biopsy MEDICATIONS: Per Anesthesia PREP TYPE: PREP QUALITY: The overall prep quality was adequate. ESTIMATED BLOOD LOSS: None CONSENT: The patient understands the risks and benefits of the procedure and understands that these r isks include, but are not limited to: sedation, allergic reaction, infection, perforation and/or bleeding. Alternative means of evaluation and treatment include, among others: physical exam, x-rays, and/or surgical intervention. The patient elects to proceed with this endoscopic procedure. HISTORY AND PHYSICAL: 05/15/2019 DESCRIPTION OF PROCEDURE: During the intra-op preparation period all mechanical and medical equipment was checked for proper function. Hand hygiene and appropriate measures for infection prevention was taken. After the risks, benefits and alternatives of the procedure were thoroughly explained, Informed consent was verified, confirmed and timeout was successfully executed by the treatment team. A digital exam revealed a palpable rectal mass. The EC38 -[id number] ([id number]) endoscope was introduced through the anus and advanced to the descending colon. The instrument was th en slowly withdrawn as the colon was fully examined. COLON FINDINGS: There was mild diverticulosis noted in the sigmoid colon. A circumferential large f rond-like mass was found in the distal rectum starting at 15 cm from the anus and extending and protruding from anal can al. Multiple biopsies were performed using cold forceps. . The scope was then completely withdrawn from the pa tient and the procedure terminated. SPECIMENS REMOVED: Yes ADVERSE EVENTS: There were no complications. POSTOPERATIVE DIAGNOSIS: COLON FINDINGS: There was mild diverticulosis noted in the sigmoid colon. A circumferential large f rond-like mass was found in the distal rectum starting at 15 cm from the anus and extending and protruding from anal can al. Multiple biopsies were performed using cold forceps. RECOMMENDATIONS: Await expedited pathology results Check CEA level Will consult oncology Will consult general surgery Will follow with you RECALL: Baltazar Castellon MD eSigned: Baltazar Castellon MD 05/15/2019 10:24 AM cc: PATIENT NAME: Ericka Chahal MR#: [id number]
[2019-05-15] MEDS: NS 1,000 ML IV SCH ×2 (11:57→16:47)
--- NOTE | 2019-05-15 13:31 | Diag Imaging Result Doc PS360 ---
MRI PELVIS W/WO CONTRAST - 05/15/2019 INDICATION: rectal mass TECHNIQUE: COMPARISON: CT from 05/14/2019 FINDINGS: There is a large polypoid mass of the distal rectum that appears to extend all of the anus and externally from the pelvic floor. In total length craniocaudally this measures about 12 cm. Maximum transverse measurements are 3.8 x 5.1 cm. There is no significant extra visceral component, with the exception of the prolapsed portion. There is a trace amount of fluid in the endometrium, this measures about 5 mm in thickness. The urinary bladder is normal. The urethra is normal. No adenopathy. No peritoneal free fluid. Bony structures are normal in signal. Hip joint spaces are preserved. IMPRESSION: 1. Large polypoid rectal mass that is apparently prolapsing out of the anus. The differential diagnosis includes rectal cancer, papilloma, or condyloma acuminata. 2. Trace amount of fluid in the uterine endometrium. Follow-up recommended when convenient. Electronically signed by Aidan Yuen 05/15/2019 1:29 PM
--- NOTE | 2019-05-15 15:45 | HEMO/ONC CONSULTATION ---
DATE: 05/15/2019 REQUESTING PHYSICIAN: Dr. Castellon. REASON FOR CONSULTATION: Anorectal mass. HISTORY OF PRESENT ILLNESS: This Fela is a 78-year-old female who presented to the emergency department complaining of nausea, vomiting, and diarrhea. She was found to be severely hyponatremic. She already had a known rectal tumor at the time of presentation. She has already been evaluated by both GI and General Surgery. There were plans to do a resection as an outpatient. However, now that she has presented with issues, it seems like the tumor was larger than previously believed to be. The patient has previously had a rectal tumor which was removed at [facility] and this is now a recurrent mass. The patient is now status post biopsies via scope done by GI. Pathology is currently pending. Seems to be feeling better at this point. We have been asked to get involved due to the likelihood that she has cancer. PAST MEDICAL HISTORY: 1. Hypertension. 2. Dysphagia with a history of esophageal stenosis. 3. Helicobacter pylori. 4. Known rectal mass that has already been evaluated by GI and General Surgery. PAST SURGICAL HISTORY: Previous resection of a rectal mass done at [facility] with now a recurrent mass. SOCIAL HISTORY: Patient is . She denies any tobacco, alcohol or illicit drug use. REVIEW OF SYSTEMS: Twelve point review of systems has been completed and is negative except for expressed in the HPI. PHYSICAL EXAMINATION: Vital Signs: Temperature 97.3 degrees, heart rate 62, respirations 14, blood pressure 132/46, O2 saturation 100% on room air. General: This is a thin female, sitting up in her hospital bed eating lunch. She has a family member at bedside. She is in no acute distress. HEENT: Head normocephalic, atraumatic. Eyes, pupils equal, round, reactive. Ears, nose, throat, mouth, oral mucosa is normal. Cardiovascular: S1, S2 heard. Respiratory: Chest is clear. Gastrointestinal: Abdomen is soft. Musculoskeletal: No obvious bony abnormalities. Skin: No rashes. Neurologic: Patient is alert and oriented x4. No focal motor deficits. LABORATORY DATA AND STUDIES: White blood cells are 10.04, hemoglobin 10.1, platelet count 347,000. Sodium 136, potassium 4.4, chloride 105, CO2 is 21, BUN is 10, creatinine 0.8, glucose 81. The patient is now status post sigmoidoscopy with biopsies as well as EGD with biopsies. CT of the abdomen shows a lobulated mass anterolaterally on the left in the rectum measuring 4.6 x 2.8 x 2.0 cm and extends into the anus circumventrally distally. There is a very nodular contour in the distal rectum. ASSESSMENT AND PLAN: 1. Rectal mass. She is now status post biopsies and pathology is pending. Discussed with the patient and her family members that we need a tissue diagnosis before we can make further treatment recommendations. Recommend a pelvic MRI that can be done as an outpatient. Check CEA as well as if it has not been done. Follow up on the pathology and further recommendations from there. If she does have cancer, we would recommend neoadjuvant treatment likely, which would be concurrent chemoradiation. However, no final diagnosis so we will wait to make further plans once pathology is back. Patient can follow up with us as an outpatient and does not need to be in the hospital in order to come up with a treatment plan. 2. Hyponatremia, severe. This seems to have greatly improved. Continue management per the primary team. 3. Dysphagia with a history of esophageal stenosis. She is now status post EGD and evaluation by GI. Continue per their recommendations. 4. Acute renal failure. This is improving. Dr. Milton is on board. Thank you for consulting us on Ms. Chahal. We will continue to follow along and adjust our treatment plan per hospital course. Dictated by PRANAV De Jesus for Maricruz Galan MD cc: Maricruz Galan MD I have seen and examined the patient and the above note reflects my history, physical, assessment and plan. Maricruz Galan MD [facility]
--- NOTE | 2019-05-15 17:22 | PROGRESS NOTE ---
DATE: 05/15/2019 SUBJECTIVE: This is a nice, 78-year-old patient of Dr. Edis Vieira with a past medical history of hypertension, dysphagia, history of esophageal stenosis, status post dilatation, EGD, H. pylori gastritis, just finished treatment I think the day before admission, known rectal tumor. She has a known rectal tumor and has been evaluated by GI and General Surgery. Is supposed to follow up with surgery outpatient for anal resection. The patient reported just not really had an appetite for several weeks, ongoing diarrhea, not taking anything by mouth, occasional yogurt, applesauce, pudding, Boost shakes, and scrambled eggs. Intake very limited. Unable to swallow pills. Workup in the emergency room showed hyponatremia, sodium of 116, dehydration. Abdominal film showed constipation. So admitted to the ICU. PAST MEDICAL HISTORY: 1. Hypertension. 2. Dysphagia, history esophageal stenosis status post dilatation. 3. H. pylori, patient finished treatment yesterday. 4. 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 CURRENT MEDICATIONS: She is on nadolol 80 mg p.o. q.a.m., Phenergan 25 mg a day, Protonix 40 mg b.i.d., vitamin D2 70125 units p.o. weekly. ASSESSMENT AND PLAN: So was admitted with severe hyponatremia secondary to dehydration, vomiting. She continues to get hydration with normal saline and checking her sodium every 4 hours. Sodium has come up to 136 today, creatinine 0.8, potassium 4.4, chloride 105, BUN 10. Pelvis MRI: Large polypoid rectal mass, is apparently prolapsing out of the anus. Differential diagnosis includes rectal cancer, papilloma, condyloma acuminata. Trace amount of fluid in the uterine endometrium. Gastropathy was found in the gastric body mucosa. The esophagus appeared normal. Biopsy was performed. Duodenum was normal per EGD. REVIEW OF ORDERS: Getting normal saline at 75 mL an hour, Protonix 40 mg b.i.d. cc: Mike Hathaway MD
[2019-05-16] MEDS: NS 1,000 ML IV SCH ×2 (04:51→20:18)
--- NOTE | 2019-05-16 06:08 | GENERAL SURGERY PROGRESS NOTE ---
DATE: 05/16/2019 SUBJECTIVE: Patient doing okay. OBJECTIVE: Vital Signs: Patient is currently afebrile. Her vital signs are stable. General: No acute distress. HEENT: Normocephalic, atraumatic. Pupils equal, round, reactive to light. Mucous membranes moist. Oropharynx benign. Neck: Supple. Trachea midline. Cardiovascular: Regular rate and rhythm. Lungs: Grossly clear. Abdomen: Soft, nontender, nondistended. Rectal: Unchanged. Extremities: Moves all extremities. Neurologic: Grossly intact. Skin: No signs of jaundice. Vascular: All extremities perfused. LABORATORY DATA: Of note, CA is 1.2. IMAGING: Pelvic MRI and endoscopy records reviewed. ASSESSMENT AND PLAN: A 78-year-old female with a rectal mass. Rectal mass. At this time, we will likely need a multi disciplinary approach. I have discussed it with Dr. Castellon who did the endoscopy. It seems like it extends pretty far and it seems like that is confirmed with the MRI. I discussed with Dr. Galan with Oncology. We need to consider if she would benefit from neoadjuvant chemoradiation or if she needs something else first like a surgery. I am concerned that given the extent of it that the only surgical option would be abdominoperineal resection, but again, we need to give full information and approach this from a multi discipline approach before we make any kind of hard recommendations. cc: Hardeep Adams MD
[2019-05-16] MEDS: PROTONIX PO SCH ×2 (09:12→20:16)
--- NOTE | 2019-05-16 17:51 | PROGRESS NOTE ---
DATE: 05/16/2019 SUBJECTIVE: Ms. Chahal reports that she is feeling a little better. OBJECTIVE: Vital Signs: Temperature is 98.9 degrees, pulse 87, respirations 22, and blood pressure 126/57. Pupils are equal and round. Lungs: Clear in all lung garcia. Cardiovascular: Regular rhythm and rate without murmur or S3. ASSESSMENT AND PLAN: 1. Dr. Adams has evaluated her for her rectal mass. Discussed with Dr. Castellon and did endoscopy, and extends pretty far. It seems like it has confirmed on MRI. Discussed with Dr. Mendez on Oncology. We need to consider neoadjuvant chemotherapy, to see if she needs something else first like surgery. Dr. Adams was concerned about the extent that only surgical option would be abdominal perennial resection. So discussion pending on pathology results. 2. Hypertension. Blood pressure controlled. 3. She has history of dysphagia, history of esophageal stenosis status post dilatation. 4. H. Pylori. Just finished treatment. Note that hematocrit 31 and hemoglobin 10 which is stable. Electrolytes look good. 5. Review of Orders. I do not see any change. She is on normal saline 75 mL an hour. Protonix 40 mg p.o. b.i.d. cc: Mike Hathaway MD
[2019-05-17] MEDS: NS 1,000 ML IV SCH ×2 (06:38→20:08)
--- NOTE | 2019-05-17 06:52 | GENERAL SURGERY PROGRESS NOTE ---
DATE: 05/17/2019 SUBJECTIVE: Patient seems to be doing about the same. No major issues. OBJECTIVE: Vital signs: Patient is currently afebrile. Her vital signs are stable. General: No acute distress. HEENT: Normocephalic, atraumatic. Pupils equal, round, and reactive to light. Mucous membranes moist. Oropharynx benign. Neck: Supple. Trachea midline. Cardiovascular: Regular rate and rhythm. Lungs: Grossly clear. Abdomen: Soft, nontender, and nondistended. Rectal: Exam unchanged. Extremities: Moves all extremities. Neurologic: Grossly intact. Skin: No signs of jaundice. Vascular: All extremities perfused. LABORATORY: None this morning as of yet. ASSESSMENT AND PLAN: A 78-year-old female with anorectal mass. Anorectal mass. At this time, we will continue with multi disciplinary approach. Waiting full discussions at this point, and we will continue to follow. We will make further recommendations once we have all information back. cc: Hardeep Adams MD
[2019-05-17] MEDS: PROTONIX PO SCH ×2 (08:44→20:08)
--- NOTE | 2019-05-17 16:44 | PROGRESS NOTE ---
DATE: 05/17/2019 SUBJECTIVE: Ms. Chahal is feeling much better today. She did a little walking. Abdomen feels better. OBJECTIVE: Temperature 98.7 degrees, pulse 84, respirations 17, and blood pressure 159/61. Pupils are equal and round. Lungs are clear in all lung garcia. Cardiovascular exam with regular rhythm and rate without murmur or S3. Abdomen is soft and nontender. Urine output was 2700 mL. ASSESSMENT AND PLAN: 1. At this time, continue multi disciplinary approach. She has an anorectal mass. Awaiting full discussions after pathology returns. She is comfortable. Continue physical therapy. Increase activity and ambulation. 2. Hypertension. Blood pressure well controlled. 3. History of dysphagia, history of esophageal stenosis status post dilatation. 4. H. Pylori, just finished treatment. Hematocrit and hemoglobin appear to be stable. Her lab on the , we will check a CBC and electrolytes again in the morning. Plan on her staying probably through the weekend. Decisions on what to do. Hopefully, she can go home on Tuesday. cc: Mike Hathaway MD
--- NOTE | 2019-05-17 18:50 | GASTROENTEROLOGY PROGRESS NOTE ---
DATE: 05/17/2019 SUBJECTIVE: Ms. Chahal 78 year old female sitting in bed, denied nausea, vomiting, abdominal pain or bowel movements today. She mentioned being able to tolerate her diet well. OBJECTIVE: Vital Signs: Temperature 97.1 degrees, pulses 83, respirations 16, blood pressure 138/55, and oxygen saturation 100% on room air. The patient's weight is 117 pounds. BMI is 19.8 kg/m2. General: She is alert and oriented x3 in no acute distress. HEENT: Pale conjunctivae. No icterus. Neck: Supple. Lungs: Clear to auscultation in the anterior garcia. Cardiovascular: Regular rate and rhythm. Abdomen: Soft, nontender, and nondistended. Active bowel sounds heard in all 4 quadrants. Extremities: No cyanosis, clubbing, or edema. Pedal pulses 2+ present bilaterally. Neurologic: Alert and oriented x3. LABORATORY: WBC is 10.04, RBC 3.60, hemoglobin is 10.2, hematocrit 31.1, and platelet count is 347,000. Sodium 136, potassium 4.4, chloride 105, carbon dioxide 21, anion gap 10, BUN is 10, and creatinine is 0.8, glucose 81, calcium is 8.8, total bilirubin 0.30, AST 11, ALT is 7, and albumin is 3.2. These labs are from 05/15. EGD and colonoscopy was done on 05/15. Esophagus was normal. Stomach had mild gastropathy that was found in the gastric body. Colonoscopy findings was mild diverticulosis in the sigmoid colon, biopsies taken. Awaiting the results of the biopsy. IMPRESSION AND PLAN: Constipation/Diarrhea Nausea/Vomiting Abdominal pain Rectal Mass Dysphagia Dehydration Diverticulosis PLAN: Awaiting the final pathology report from the rectal mass. CEA is normal. Being followed by oncology team with Dr Maricruz Galan. The patient is currently on IV fluids NS at 75 mL for her dehydration. Her sodium is 136, it has been trending upwards. She is on GI prophylaxis Protonix 40 mg p.o. twice a day. The patient has been seen by a surgeon for her rectal mass. Colonoscopy findings were diverticulosis, discussed patient on the importance of following a high- fiber diet, avoid eating foods with corn, nuts, and seeds. Advised her to take miralax daily for her bowel regimen and Metamucil fiber daily at bedtime. Patient acknowledged understanding of the instructions. This plan was discussed with Dr. Solis. Please call us with any further questions or concerns. Dictated by CARA More for Robert Solis MD cc: Robert Solis MD I have seen and examined the patient myself and I agree with the above plan of care. Discussed the above plan of care with the patient and family at bedside and all questions were answered. Please call us with any further questions. KENNEDY
[2019-05-17] MEDS ORDERED: CORGARD PO ONE (22:19)
[2019-05-18 05:45] LABS: BASO# 0.06 X1000 (0.0-0.2); BASO% 0.7 % (0.0-0.8); EOS# 0.45 X1000 (0.0-0.7); EOS% 5.2 % (0.0-10.0); HEMATOCRIT 30.2 % (37.0-47.0); HEMOGLOBIN 9.9 g/dL (12.0-16.0); LYMPH# 1.98 X1000 (1.2-3.4); LYMPH% 22.9 % (20.5-51.1); MCH 28.5 PG (27-31); MCHC 32.8 g/dL (33-37); MONO# 0.61 X1000 (0.11-0.59); MONO% 7.1 % (1.7-9.3); MPV 9.6 FL (7.4-10.4); NEUT# 5.55 X1000 (1.4-6.5); NEUT% 64.1 % (42.2-75.2); PLT 333 X1000 (130-400); RBC 3.47 XMIL (4.2-5.4); RDW 14.1 % (11.5-14.5); WBC 8.65 X1000 (4.8-10.8)
[2019-05-18 06:47] LABS: AGAP 13; BUN 6 mg/dL (8-22); CALCIUM 8.6 mg/dL (8.8-10.2); CHLORIDE 110 mmol/L (98-107); COSMO 280; CREATININE 0.7 mg/dL (0.5-0.9); ESTIMATED GFR > 60; GLUCOSE 86 mg/dL (70-104); POTASSIUM 3.4 mmol/L (3.5-5.1); SODIUM 142 mmol/L (136-145); TCO2 19 mmol/L (25-35)
--- NOTE | 2019-05-18 08:38 | GENERAL SURGERY PROGRESS NOTE ---
DATE: 05/18/2019 SUBJECTIVE: Still awaiting pathology final reports. The patient seems to be doing okay. She is having bowel movements. I would like to wait for final pathology report before we make any definitive plans. We will continue to follow while she is in the hospital. cc: Hardeep Adams MD
[2019-05-18] MEDS: PROTONIX PO SCH ×2 (08:46→21:00)
[2019-05-18] MEDS: CORGARD PO SCH (08:46)
[2019-05-18] MEDS ORDERED: KLOR-CON PO ONE (12:32)
--- NOTE | 2019-05-18 13:08 | PROGRESS NOTE ---
DATE: 05/18/2019 SUBJECTIVE: The patient is resting comfortably in bed. Not in any obvious distress. OBJECTIVE: Vital signs: Temperature is 98.3 degrees, pulse 73, respiratory rate 16, blood pressure is 167/71, oxygen saturation is 100%. HEENT: She is atraumatic, normocephalic. Cardiovascular: S1, S2. Respiratory system: Has evidence of good air entry bilaterally. Abdomen: Soft, nontender. No masses felt. Extremities: No evidence of edema. Central nervous system: No obvious focal deficits noted. LABORATORY DATA: WBC is 8.65, hematocrit is 30.2, with a platelet count of 333,000. Sodium is 142, potassium 3.4, chloride is 110, BUN is 6, creatinine 0.7. ASSESSMENT AND PLAN: 1. Rectal mass. Pathology report is still waiting status post biopsy. The patient is being followed by the surgical as well as oncology teams. 2. Hyponatremia, resolved. 3. Acute kidney injury, resolved. 4. Hypokalemia, replete potassium. 5. Hypertension. Continue current antihypertensive regimen. 6. History of dysphagia/esophageal status, status post dilatation. 7. Anemia. Follow up on hemoglobin and hematocrit. Transfuse PRBCs as needed. 8. Deep vein thrombosis prophylaxis. Sequential compression devices. 9. Gastrointestinal prophylaxis. Proton pump inhibitor. cc: Butch Cerna MD [facility]
[2019-05-18] MEDS: NS 1,000 ML IV SCH (13:51)
--- NOTE | 2019-05-18 13:59 | GASTROENTEROLOGY PROGRESS NOTE ---
DATE: 05/18/2019 SUBJECTIVE: Ms. Chahal 78-year-old female was sitting in bed, family at the bedside. She denied any nausea, vomiting,abdominal pain or having any bowel movements today. Patient mentioned that the surgeon talked to her today and was waiting for the pathology report to make any further decision. OBJECTIVE: Vital Signs: Temperature 97.9 degrees, pulse is 79, respirations 16, blood pressure is 167/61, oxygen saturation 99% on room air. The patient's weight is 115 pounds. BMI is 19.6 kg/m2. General: She is alert, oriented x3, in no acute distress. HEENT: Pale conjunctivae. No icterus. Neck: Supple. Lungs: Clear to auscultation in the anterior garcia. Cardiovascular: Regular rate and rhythm. Abdominal: Soft, nontender, nondistended. Active bowel sounds heard in all 4 quadrants. Extremities: No cyanosis, clubbing, or edema. Pedal pulses 2+ present bilaterally. Neurologic: Alert and oriented x3. LABORATORY DATA: WBC 8.65, RBC 3.47, hemoglobin is 9.9, hematocrit is 30.2, platelet count is 333,000. Sodium is 142, potassium 3.4, chloride 110, carbon dioxide 19, anion gap 13, BUN is 6, creatinine is 0.7, glucose 86, calcium 8.6, magnesium 1.7. Total bilirubin 0.30, AST 11, ALT 7, albumin is 3.2. CEA is 1.2. IMPRESSION AND PLAN: Constipation Rectal mass Dysphagia Diverticulosis PLAN: We are awaiting for the final pathology report from the rectal mass. The patient is currently receiving IV fluids, normal saline at 75 mL. She is on Protonix 40 mg twice a day. Her sodium today is 142, which has trended upwards. She was seen by the surgeon today and he is awaiting for final pathology report to make further decisions. We have discussed with the patient to continue with a high-fiber diet. Continue bowel regimen. The patient acknowledges understanding of the instructions. This plan was discussed with Dr. Castellon. Please call us for any further questions or concerns. Dictated by CARA More for Baltazar Castellon MD Physician Attestation I have seen and examined the patient. I have discussed and reviewed the the note by Soniya MARROQUIN and agree with findings and plan as documented. In brief, Ms. Ericka Chahal presents to GI service with rectal mass seen on imaging. Mass found on sigmoidoscopy is large and extends 15cm from anal verge, involves the anal canal, and protrudes from rectum. Initial pathology reveals tubulovillous adenoma, which I believe is a sampling error. If further tissue specimen is required, then recommend surgical biopsy over further repeat endoscopic biopsy given mass is readily accessible from rectum. Discussed recommendation with Dr. Adams and Dr. Galan. Other issues include dysphagia. EGD was negative for stricture. Will reduce PPI to once daily. Continue bowel regimen. Will sign off. Please call with questions. MTDD
--- NOTE | 2019-05-18 17:19 | HEMO/ONC PROGRESS NOTE ---
DATE: 05/18/2019 SUBJECTIVE: Ms. Chahal is sitting in her hospital bed. Her is at bedside. She is in no acute distress. VITAL SIGNS: Temperature 97.9 degrees, heart rate 79, respirations 16, blood pressure 167/61, O2 saturation 99% on room air. LABORATORY DATA: White blood cells 3.65, hemoglobin 9.9, platelets 333,000. Sodium 142, potassium 3.4, chloride 110, CO2 19, BUN 6, creatinine 0.7, glucose is 86. PHYSICAL EXAMINATION: General: female lying in hospital bed in no acute distress. Cardiovascular: Regular rate. Respiratory: Normal respiratory effort. No audible wheezing. Extremities: No edema. ASSESSMENT AND PLAN: 1. Rectal mass. Preliminary pathology is showing the patient to have a villous adenoma; however, according to report, the tumor is rather extensive. There is concern that she does still have a malignant neoplasm. The plan at this point is just to try to gather more information. Consider possibly doing a repeat biopsy. Reviewing the MRI a little bit more extensively. No plans for chemotherapy or radiation at this time given that she does not have any tissue evidence of a malignant tumor. We are going to continue to work with GI, general surgery and the primary team to try to get a final answer. At that point, a full treatment plan will be developed. 2. Hyponatremia, severe. This is now resolved. 3. Acute kidney injury, resolved. 4. Dehydration. Definitely improved with IV fluids. Continue. 5. Anemia. We will continue to transfuse p.r.n. Dictated by PRANAV De Jesus for Maricruz Galan MD cc: Maricruz Galan MD I have seen and examined the patient and the above note reflects my history, physical, assessment and plan. Consider neoadjuvant chemoradiation prior to surgical resection if invasive disease confirmed. Maricruz Galan MD [facility]
[2019-05-19] MEDS: NS 1,000 ML IV SCH ×2 (01:42→12:18)
[2019-05-19] MEDS: PROTONIX PO SCH (06:13)
[2019-05-19] MEDS: CORGARD PO SCH (08:18)
--- NOTE | 2019-05-19 13:51 | GENERAL SURGERY PROGRESS NOTE ---
DATE: 05/19/2019 SUBJECTIVE: No acute complaints overnight. She denies abdominal pain, nausea, or vomiting. OBJECTIVE: Vital Signs: She is afebrile. Vital signs stable. General: She is awake and alert, in no acute distress. GI: Soft, nontender, nondistended. ASSESSMENT AND PLAN: A 78-year-old female with anorectal mass. Final pathology report is pending. Further recommendations will be based on the pathology and review of radiology. This may ultimately go to Tumor Board on Tuesday. cc: Christopher Turner MD
--- NOTE | 2019-05-19 18:10 | PROGRESS NOTE ---
DATE: 05/19/2019 SUBJECTIVE: The patient notes that she is doing okay. Pain is improved. Denies any fevers or chills. OBJECTIVE: Temperature 98, pulse 77, respiratory rate 18, BP 133/90.General: Patient is awake, currently in no distress. HEENT: Normocephalic. Neck: Supple. Cardiovascular: Regular rate. Chest: Clear. Abdomen: Soft. Extremities: Moves all extremities. No edema. Neurologic: No changes. ASSESSMENT: 1. Rectal mass. I do not have the final pathology, although it appears the preliminary report is negative for malignancy. 2. Hypokalemia. 3. Hyponatremia. Resolved. 4. Hypertension. Stable. 5. Acute kidney injury. Resolved. PLAN: Hopefully, patient can continue to improve and discharge home soon. cc: Allen Wright MD
[2019-05-20] MEDS: NS 1,000 ML IV SCH ×3 (02:00→16:09)
[2019-05-20] MEDS: PROTONIX PO SCH (06:52)
[2019-05-20] MEDS: CORGARD PO SCH (09:40)
--- NOTE | 2019-05-20 14:55 | PROGRESS NOTE ---
DATE: 05/20/2019 SUBJECTIVE: Ms. Chahal is awake and alert. She is talking to me and seems to be comfortable. OBJECTIVE: Temperature 98.3 degrees, pulse 77, respirations 14, blood pressure 143/57. Pupils are equal and round. Lungs are clear in all lung garcia. Cardiovascular Examination: Regular rhythm and rate without murmur or S3. Urine output 2100 mL. ASSESSMENT AND PLAN: 1. Rectal mass. I do not have final pathology. The preliminary report is negative for malignancy. I am not sure if we are going to rebiopsy. 2. Hypokalemia. Continue to supplement. 3. Hyponatremia, resolved. 4. Hypertension, stable. 5. Acute kidney injury. 6. Dr. Turner covering the weekend. Pathology report apparently was negative. I think they will present her to Tumor Board on Tuesday and she says she is eating. Giving normal saline at 75 mL an hour and she is on Corgard 80 mg by mouth daily. cc: Mike Hathaway MD
[2019-05-21] MEDS: PROTONIX PO SCH (06:04)
--- NOTE | 2019-05-21 06:08 | GENERAL SURGERY PROGRESS NOTE ---
DATE: 05/21/2019 SUBJECTIVE: Patient seems to be doing okay. OBJECTIVE: Vital Signs: Patient is currently afebrile. Her vital signs are stable. General: No acute distress. Cardiovascular: Regular rate and rhythm. Lungs: Grossly clear. Abdomen: Soft, nontender, and nondistended. Rectal: Mass unchanged. ASSESSMENT AND PLAN: A 78-year-old female with extensive anorectal mass. Anorectal mass. At this time, we will follow up with discussion on Tuesday at the Tumor Board. Mass is pretty extensive noted on imaging and endoscopy. Concern would be that repeat biopsy done surgically may still yield the same results since we cannot essentially biopsy the whole thing in the setting where it is tubulovillous adenoma on preliminary pathology. There should be a definite concern that this is harboring some degree of malignancy. We will need to again discuss at Tumor Board. cc: Hardeep Adams MD
[2019-05-21] MEDS: CORGARD PO SCH (09:07)
[2019-05-21] MEDS: NS 1,000 ML IV SCH (10:25)
[2019-05-21] MEDS: MIRALAX PO SCH (12:26)
--- NOTE | 2019-05-21 13:24 | GASTROENTEROLOGY PROGRESS NOTE ---
DATE: 05/21/2019 SUBJECTIVE: Patient resting in bed. Her present at bedside. The patient denies any new complaints. She is moving stools. She had a liquid bowel movement this morning. She was able to eat 50% of her meal today. Dr. Adams is following the patient. The plan is to discuss her case on tumor board, and then plan for possible surgical resection. OBJECTIVE: Vital Signs: Temperature 98.9 degrees, pulse 76, heart rate 16, blood pressure 141/54 and saturating 98% on room air. Body weight of 126 pounds 1 ounce. BMI of 21.3 kg. General Appearance: Thinly built lying in bed in no acute distress. HEENT: Pale conjunctivae. No icterus. Pupils equal and reactive to light. Neck: Supple. Abdomen: Soft, nontender, and nondistended. No guarding. Extremities: No cyanosis or clubbing. Neurologic: She is alert, awake, and oriented. LABORATORY: Hemoglobin and hematocrit is 9.9 and 30.2. White count of 8.6 and platelet count of 333,000. Sodium 140, potassium 3.4, chloride 110, bicarb 99, BUN of 6, creatinine 0.7, glucose of 86, and calcium 8.6. Magnesium 1.7. MICROBIOLOGY: The esophageal biopsy and the colon mass biopsy are currently pending. The preliminary report is possible showing a possibility of tubovillous pathology in the rectal lesion. ASSESSMENT AND PLAN: 1. Constipation. The patient to continue on bowel regimen. We will start the patient on MiraLAX once or twice daily as she has history of chronic constipation. 2. The patient had diverticulosis noted in the sigmoid colon. She will benefit from taking a high-fiber diet, and taking Metamucil 1 tablespoon at bedtime on discharge. 3. Evidence of mild gastropathy on EGD. The patient's final biopsy results are biopsy results on the esophagus are currently pending. 4. We will continue on Protonix once daily for gastropathy in the gastric body. 5. Anemia. Continue to watch for now and transfuse as needed. We will start on multivitamin once daily. 6. Dysphagia has improved. She is eating well. 7. CEA is 1.2, which is normal. We will follow up the final pathology results. Patient will need resection of the rectal lesion even if it is tubovillous adenoma as the lesion is pretty large. I discussed the above with the patient and family at bedside. All questions were answered. Please call us with any further questions. Patient follow up in the clinic in 4 weeks of discharge. cc: Robert Solis MD MTDD
--- NOTE | 2019-05-21 18:19 | PROGRESS NOTE ---
DATE: 05/21/2019 SUBJECTIVE: Ms. Chahal says she feels good. She is eating. Her bowels are moving. They are waiting on discussions on what to do about the rectal tumor and they are planning on discussing it tomorrow at Tumor Board. OBJECTIVE: Vital signs: Temperature 98.8 degrees, pulse 70, respirations 10 blood pressure 150/60. HEENT: Pupils are equal round. Lungs: Are clear in all lung garcia. Cardiovascular: Regular rate without murmur or S3. Abdomen: Soft. Skin: Is warm and dry. URINE OUTPUT: Was 1700 mL. ASSESSMENT AND PLAN: 1. Constipation. Continue present bowel regimen. She is on MiraLAX once or twice a day. History of chronic constipation. 2. The patient has diverticulosis in the sigmoid colon and she will benefit from high-fiber diet adding Metamucil 1 tablespoon at bedtime. 3. Evidence of mild gastropathy on esophagogastroduodenoscopy. Final biopsy results are pending. 4. Anemia. Watch and follow hemoglobin and hematocrit and transfuse as necessary. 5. Dysphagia is improved. 6. Her CEA was 1.2, which is normal. She has a rectal lesion, but even if it is a tubovillous adenoma, it looks like we will have to pursue resection. So we are going to present the report to Tumor Board and make a decision. Dr. Adams is the surgeon. The mass is pretty extensive noted on the imaging at endoscopy. Since they cannot biopsy the whole thing in this setting, they want to make sure there is no degree of malignancy. cc: Mike Hathaway MD
[2019-05-22] MEDS: NS 1,000 ML IV SCH ×4 (05:42→18:07)
[2019-05-22] MEDS: PROTONIX PO SCH (06:19)
[2019-05-22 07:25] LABS: BASO# 0.05 X1000 (0.0-0.2); BASO% 0.8 % (0.0-0.8); EOS# 0.33 X1000 (0.0-0.7); EOS% 5.3 % (0.0-10.0); HEMATOCRIT 28.6 % (37.0-47.0); HEMOGLOBIN 9.1 g/dL (12.0-16.0); LYMPH# 1.88 X1000 (1.2-3.4); LYMPH% 30.3 % (20.5-51.1); MCH 28.6 PG (27-31); MCHC 31.8 g/dL (33-37); MCV 89.9 FL (81-99); MONO# 0.51 X1000 (0.11-0.59); MONO% 8.2 % (1.7-9.3); MPV 10.1 FL (7.4-10.4); NEUT# 3.44 X1000 (1.4-6.5); NEUT% 55.4 % (42.2-75.2); PLT 280 X1000 (130-400); RBC 3.18 XMIL (4.2-5.4); WBC 6.21 X1000 (4.8-10.8)
[2019-05-22 07:56] LABS: AGAP 11; ALB/GLOB RATIO 0.9; ALBUMIN 2.6 g/dL (3.5-5.0); ALKALINE PHOSPHATASE 94 U/L (32-104); BUN 9 mg/dL (8-22); CALCIUM 8.2 mg/dL (8.8-10.2); CHLORIDE 113 mmol/L (98-107); COSMO 277; CREATININE 0.7 mg/dL (0.5-0.9); ESTIMATED GFR > 60; GLUCOSE 82 mg/dL (70-104); GOT 9 U/L (10-30); GPT < 5 U/L (10-36); POTASSIUM 3.7 mmol/L (3.5-5.1); SODIUM 140 mmol/L (136-145); TCO2 16 mmol/L (25-35); TOTAL BILIRUBIN 0.26 mg/dL (0.20-1.00); TOTAL PROTEIN 5.4 g/dL (6.3-8.3)
--- NOTE | 2019-05-22 09:15 | GENERAL SURGERY PROGRESS NOTE ---
DATE: 05/22/2019 At this time, awaiting discussion from Tumor Board today. We will make further recommendations once this has been done. I have talked extensively with Dr. Maricruz Galan about this case. We will follow up with the Tumor Board's recommendations. cc: Hardeep Adams MD
[2019-05-22] MEDS: CORGARD PO SCH (09:40)
[2019-05-22] MEDS: MIRALAX PO SCH (09:40)
--- NOTE | 2019-05-22 20:04 | PROGRESS NOTE ---
DATE: 05/22/2019 SUBJECTIVE: The patient states that she feels better today. She had a bowel movement this morning. OBJECTIVE: Vital Signs: Temperature 98.5 degrees, blood pressure 125/49, heart rate 72, respirations 18, O2 saturation 99% on room air. General: This is a chronically ill-appearing elderly female lying in bed in no acute distress. Heart: S1, S2 normal. Regular rate and rhythm. Lungs: Equal air entry bilaterally. No wheezing. No rales. Abdomen: Positive bowel sounds. Soft, nontender, nondistended. Extremities: No edema. No cyanosis. Neurologic: The patient is alert and oriented x4. LABORATORY DATA: Reviewed. ASSESSMENT AND PLAN: 1. Large rectal mass. 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 We will await further recommendations from General Surgery and Oncology regarding treatment plan. 2. Hyponatremia. Resolved. 3. Acute kidney injury. Resolved. 4. Metabolic acidosis. We will continue to monitor closely. 5. Anemia. Stable. DISPOSITION: We will await further recommendations from the general surgeon and Oncology regarding the patient's rectal mass. cc: Marla Quintana MD MTDD
[2019-05-23 05:49] LABS: HEMATOCRIT 27.7 % (37.0-47.0); MCH 28.8 PG (27-31); MCHC 32.5 g/dL (33-37); MCV 88.8 FL (81-99); MPV 10.2 FL (7.4-10.4); RBC 3.12 XMIL (4.2-5.4); RDW 14.1 % (11.5-14.5); WBC 6.96 X1000 (4.8-10.8)
[2019-05-23 06:13] LABS: AGAP 10; ALBUMIN 2.7 g/dL (3.5-5.0); BUN 9 mg/dL (8-22); CALCIUM 7.7 mg/dL (8.8-10.2); CHLORIDE 115 mmol/L (98-107); COSMO 287; CREATININE 0.8 mg/dL (0.5-0.9); ESTIMATED GFR > 60; GLUCOSE 84 mg/dL (70-104); PHOSPHORUS 3.1 mg/dL (2.7-4.5); POTASSIUM 3.9 mmol/L (3.5-5.1); SODIUM 145 mmol/L (136-145); TCO2 20 mmol/L (25-35)
[2019-05-23] MEDS: NS 1,000 ML IV SCH (06:24)
[2019-05-23] MEDS: PROTONIX PO SCH (06:32)
[2019-05-23] MEDS: CORGARD PO SCH (12:20)
[2019-05-23] MEDS: MIRALAX PO SCH (12:20)
--- NOTE | 2019-05-23 15:47 | PROGRESS NOTE ---
DATE: 05/23/2019 SUBJECTIVE: The patient is resting comfortably. She has no complaints. No acute events noted overnight. OBJECTIVE: Vital Signs: Temperature 98 degrees, blood pressure 162/63, heart rate 76, respirations 14, and O2 saturation 98% on room air. General: This is a chronically ill-appearing elderly female lying in bed in no acute distress. Heart: S1, S2 normal. Regular rate and rhythm. Lungs: Clear to auscultation bilaterally. No wheezing. No rales. No rhonchi. Abdomen: Positive bowel sounds. Soft, nontender, nondistended. Extremities: No edema. No cyanosis. Neurologic: The patient is alert and oriented x3. LABORATORY: Reviewed. ASSESSMENT AND PLAN: 1. Large rectal mass. We are currently awaiting the recommendations from Oncology and General Surgery regarding further workup and eventual treatment. 2. Acute kidney injury. Resolved. 3. Hyponatremia. Resolved. 4. Anemia. Stable. 5. Disposition. The patient will be discharged home once cleared by the general surgeon and oncologist. cc: Marla Quintana MD MTDD
--- NOTE | 2019-05-24 06:19 | GENERAL SURGERY PROGRESS NOTE ---
DATE: 05/24/2019 Discussed with the tumor board. I think at this point the best thing to do would be to get an endoscopic ultrasound with potential further biopsies. This probably can be done in [place]. Dr. Maricruz Galan is in the process of arranging that. From a surgical point of view, she can be discharged home and follow up with me after the endoscopic ultrasound. cc: Hardeep Adams MD
[2019-05-24] MEDS: PROTONIX PO SCH (06:40)
[2019-05-24 09:07] VITALS: BP 133/53
[2019-05-24] MEDS: CORGARD PO SCH (09:55)
[2019-05-24] MEDS: MIRALAX PO SCH (09:55)
--- NOTE | 2019-05-24 22:21 | DISCHARGE SUMMARY ---
ADMISSION DATE: 05/12/2019 DISCHARGE DATE: 05/24/2019 FINAL DISCHARGE DIAGNOSES: 1. Severe hyponatremia. 2. Acute kidney injury. 3. Hypokalemia. 4. Large tubulovillous adenoma involving the rectum. 5. Hypertension. 6. Dehydration. 7. Anemia. 8. Vitamin D deficiency CONSULTATIONS: 1. Nephrology consultation with Dr. Milton. 2. Oncology consultation with Dr. Galan. 3. GI consultation with Dr. Solis. PROCEDURES: 1. Flexible sigmoidoscopy performed on 05/15/2019 that revealed a large mass involving the distal rectum. 2. EGD with biopsy performed on 05/15/2019 that revealed gastropathy with a normal esophagus and duodenum. HOSPITAL COURSE: Ms. Chahal is a 78-year-old female with a history of hypertension, vitamin D deficiency and frequent admissions for dehydration, who presented to the ER with a chief complaint of nausea, vomiting, diarrhea, and generalized weakness. Upon arrival to the ER, the patient was noted to have a sodium of 116 and a creatinine of 1.7. In light of this finding, the patient was admitted to the hospitalist service. The patient was started on gentle IV fluid hydration an the promotion writer was consulted for assistance with management of the patient's severe hyponatremia. GI was consulted due to the patient's prior complaints of dysphagia. During the patient's prior hospitalization, she underwent an EGD with dilatation. The patient does have a known rectal mass. The patient was taken for endoscopy on May 15 at which time the EGD revealed a normal esophagus and duodenum. The patient was noted to have gastropathies in the stomach. This was then followed by a flexible sigmoidoscopy at which time the rectal mass was biopsied. The patient's hyponatremia resolved and her renal function returned to normal. Oncology was consulted due to concern that the mass was likely malignant. Ultimately, the pathology report came back indicating a tubulovillous adenoma. The patient's case was discussed at the tumor Board and it was decided that the patient would benefit by having an endoscopic ultrasound done at [facility]. Dr. Mendez has indicated that she will make arrangements for the patient to be referred for the endoscopic ultrasound with biopsy. The patient will then follow up with Dr. Adams once the results of the biopsy are available. On the day of discharge, the patient was noted to have a sodium of 145 with a potassium of 3.9 and a creatinine of 0.8. The patient was tolerating her diet without any difficulty and had no complaints. DISCHARGE MEDICATIONS: 1. Vitamin D2 50,000 units oral every 7 days. 2. Nadolol 80 mg p.o. every morning. 3. Protonix 40 mg p.o. twice a day. 4. MiraLAX 17 g oral daily. 5. Phenergan 25 mg oral every 6 hours p.r.n. for nausea. DISCHARGE DIET: Low-sodium diet. ACTIVITY: As tolerated. FOLLOWUP INSTRUCTIONS: The patient will follow up with Dr. Mendez as scheduled by her clinic. Dr. Galan will be referring the patient to [facility] to undergo an endoscopic ultrasound with biopsy. The patient will also will follow up with Dr. Adams once the biopsy results are available to discuss further treatment plan. cc: MD Edis Phelan MD MTDD
== END 2019-05-24 13:15 | disposition home or self-care (01) | DRG 640 ==
LOC: ED 11:03 → SUATTDRO 13:22 → ICU 13:22 → 1N 05-14 09:56
PROVIDERS: ATTEND Internal Medicine